=== PATIENT | female | born 1975 | race Caucasian/White ===

== ENCOUNTER 2024-03-31 17:39 | Inpatient (IN) | payer SELFPAY ==
[2024-03-31] VITALS (10 sets, daily range): BP systolic 93–145; BP diastolic 47–88; PULSE 91–115; RESP 21–39; TEMP 37.2–39.3; O2SAT 83–100
--- NOTE | ~2024-03-31 | CT_ITS ---
Clinical indication:Severe rib pain COMPARISON:Plain film evaluation of the chest dated 03/31/2024 TECHNIQUE: Multiple contiguous axial images of the chest were performed following the administration of intravenous contrast. DLP: 170 mGy-cm FINDINGS: LUNG:Consolidation is identified within the superior segment of the left lower lobe, within the right middle lobe, and within the superior segment of the right lower lobe. Dependent consolidation is detected within the base of the right lower lobe. MEDIASTINUM:No pathologically enlarged or morphologically suspicious lymph nodes within the mediastin um, robbie, or bilateral axilla. HEART:The heart is of normal size, without pericardial effusion. SOFT TISSUES OF THE CHEST: Unremarkable BONES OF THE CHEST: Prior fracture deformity is identified within the right lateral seventh rib. No a cute fractures are appreciated. VISUALIZED PORTION OF THE UPPER ABDOMEN: Small hiatal hernia. Fatty infiltration of the liver. IMPRESSION: Multifocal pneumonia, as described on plain radiograph of the chest dated 03/31/2024. Prior fracture deformity within the right seventh rib. No acute fractures are present. Reviewed, dictated and finalized at location A. STICS OPERATIONS DIRECTOR IMPRESSION: Multifocal pneumonia, as described on plain radiograph of the chest dated 025. Prior fracture deformity within the right seventh rib. No acute fractures are p resent.
--- NOTE | ~2024-03-31 | CT_ITS ---
Clinical indication:Worsening shortness of breath COMPARISON:Contrast-enhanced CT examination of the chest performed 48 hours earlier TECHNIQUE: Multiple contiguous axial images of the chest were performed without the administration of intravenous contrast. FINDINGS: LUNG:Increasing consolidation within the bilateral lung cullen, demonstrating progression since previ ous examination. Dense opacification of the entirety of the right lower lobe with air bronchograms. Increasing consolidation within the left lower lobe, an interval change from prior. Interval development of patchy irregular groundglass opacification of the bilateral upper lobes, when compared with previous examination. MEDIASTINUM:Unchanged HEART:The heart is of normal size, although now with a small pericardial effusion. SOFT TISSUES OF THE CHEST: Unremarkable BONES OF THE CHEST: Unchanged IMPRESSION: Progression of multifocal pneumonia, as detailed above. Reviewed, dictated and finalized at location A. UTER TESTER
--- NOTE | ~2024-03-31 | XR_ITS ---
CHEST RADIOGRAPH CLINICAL HISTORY: r/o PNA . COMPARISON: 03/31/2024. Reference is also made to a CT examination of the chest dated 04/04/2024 TECHNIQUE: Single portable view of the chest. FINDINGS Right upper extremity PICC line identified with its tip projecting over the superior vena cava. The remainder of the cardiomediastinal silhouette is otherwise unremarkable. Redemonstration of bilateral lower lobe infiltrates, right greater than left. The remainder of the lungs are clear. IMPRESSION: Redemonstration bilateral lower lobe infiltrates, right greater than left. Reviewed, dictated and finalized at location A. [place] GUIDE
--- NOTE | ~2024-03-31 | XR_ITS ---
CHEST RADIOGRAPH CLINICAL HISTORY: influenza, hypoxia . COMPARISON: 05/03/2018 TECHNIQUE: Single portable view of the chest. FINDINGS The cardiomediastinal silhouette is unremarkable. Patchy alveolar disease detected within the right upper and middle lobes with air bronchograms, likel y an early infiltrate. The remainder of the lungs are clear. IMPRESSION: Right upper and middle lobe pneumonia, as detailed above. Reviewed, dictated and finalized at location A. CHER OPERATOR
--- OUTSIDE RECORDS SUMMARY | 2024-03-31 17:42 | XMS_ITS | Clinical Summary ---
Author Organization [facility] Address [facility] [place] [address] Care Team Providers Care Rubber And Plastics Worker Name Role Phone None, Provider MD Primary Care Provider Unavaila ble Allergies Active Allergy Reactions Criticality Noted Date Comments Penicillins Hives 12/10/2017 Medications azithromycin (ZITHROMAX) 250 MG tablet Take 2 tablets by mouth on day one then 1 daily for four days. 6 tablet 12/10/2017 Active methylPREDNISol one, JULIOCESAR, 4 MG tablet 6 TABLETS ON DAY ONE, 5 TABLETS DAY TWO, 4 TABLETS DAY THREE, 3 TABLETS DAY FOUR, 2 TABLETS DAY FIVE, AND 1 TABLET DAY SIX 1 each 12/10/2017 Active Family History Medical History Relation Comments Diabetes Mother Relation Status Comments Mother Social History Tobacco Use Types Packs/Day Years Used Date Smoking Tobacco: Every Day Smokeless Tobacco: Never Alcohol Use Standard Drinks/Week Comments No 0 (1 standard drink = 0.6 oz pur e alcohol) Comments No Sex and Gender Information Value Date Recorded Sex Assigned at Not on file Legal Sex Female 7:49 PM CDT Gender Identity Not on file Sexual Orientation Not on file Last Filed Vital Signs Vital Sign Reading Time Taken Comments Blood Pressure 165/99 11/28/2023 8:55 PM CDT Pulse 101 11/28/2023 8:55 PM CDT Temperature 36.8 C (98.3 F) 11/28/2023 8:55 PM CDT Respiratory Rate 20 11/28/2023 8:55 PM CDT Oxygen Saturation 97% 11/28/2023 8:55 PM CDT Inhaled Oxygen Concentration - - Weight 71.7 kg (158 lb) 11/28/2023 6:41 PM CDT Height 160 cm (5' 3 ) 11/28/2023 6:41 PM CDT Body Mass Index 27.99 11/28/2023 6:41 PM CDT Plan of Treatment Health Maintenance Due Date Last Done Comments Cervical Cancer Screening Pa p Smear (Age 30 to 64) Every 3 Years 1973 Colorectal Cancer Screening Colonoscopy (10 Years) 1973 Annual Physical 02/19/1976 Pneumococcal Vaccine: Pediat rics (0 to 5 Years) and At-Risk Patients (6 to 64 Years) (1 of 2 - PCV) 1979 Hepatitis C 1991 DTaP, Tdap and Td Vaccines ( 1 - Tdap) 02/19/1992 Hepatitis B Vaccines (1 of 3 - 19+ 3-dose series) 02/19/1992 Cervical Cancer Screening Pa p with HPV Testing (Age 30 to 64) Every 5 Years 2003 Cervical Cancer Screening with HPV 2003 Mammogram Screening 2013 Zoster Vaccines (1 of 2) 2023 COVID-19 Vaccine (2 - 2023-2 5 season) 2023 09/19/2020 Influenza Adult (#1) 2023 Meningococcal B Vaccine Aged Out No l onger eligible based on patient's age to complete this topic Meningococcal Vaccine Aged Out No kira ivis eligible based on patient's age to complete this topic RSV Immunizations Under 20 Months Aged Out No longer eligible based on patient's age to complete this topic Care Teams Rubber And Plastics Worker Relationship Specialty Start Date End Date None, Provider, PCP - General 12/10/17
--- NOTE | 2024-03-31 17:55 | ECG_ITS ---
Test Date: 2024-03-31 17:58:38 Measurements Intervals [place] Rate: 100 P: 65 [place]: 172 QRS: 52 QRSD: 84 T: 64 QT: 314 QTc: 406 Interpretive Statements SINUS TACHYCARDIA POSSIBLE LEFT ATRIAL ENLARGEMENT CONSIDER ANTERIOR INFARCT, AGE INDETERMINATE ABNORMAL ECG No previous ECG available for comparison Electronically Signed On 03-31-2024 18:04:33 DREDGE PIPE INSTALLER by Anibal Aguirre D.O.
[2024-03-31 18:14] LABS: Basophils Percent Auto 0.3 % (0.2-1.2); Eosinophils Percent Auto 0.3 % (0-4.4); Hematocrit 42.5 % (37.0-47.0); Hemoglobin 14.9 g/dL (12.0-15.0); Immature Granulocyte Absolute 0.03 K/mm3 (0.00-0.031); Immature Granulocyte Percent A 0.3 % (0-0.5); Lymphocytes Absolute Auto 0.95 K/mm3 (0.9-3.2); Lymphocytes Percent Auto 8.1 % (18.3-44.2); Mean Corpuscular HGB Conc 35.1 g/dl (32-36); Mean Corpuscular Hemoglobin 31.4 pg (26-34); Mean Corpuscular Volume 89.5 fl (80-100); Mean Platelet Volume 10.3 fl (7.4-10.4); Monocytes Absolute Auto 0.8 K/mm3 (0.1-0.6); Monocytes Percent Auto 6.7 % (2.6-8.5); Neutrophils Absolute Auto 9.9 K/mm3 (1.3-6.7); Neutrophils Percent Auto 84.3 % (45.5-73.1); Platelet Count Result 188 k/mm3 (150-375); Red Blood Count 4.75 M/mm3 (4.2-5.4); White Blood Count 11.8 K/mm3 (4.5-10.0)
[2024-03-31 18:23] LABS: Alanine Aminotransferase 42 U/L (6-35); Albumin Level 3.9 g/dL (3.5-5.1); Alkaline Phosphatase 54 U/L (38-126); Anion Gap 11 mmol/L (4-12); Aspartate Amino Transferase 30 U/L (14-36); Bilirubin,Total 1.5 mg/dL (0.2-1.3); Blood Urea Nitrogen 16 mg/dL (7-17); Calcium 8.3 mg/dL (8.4-10.2); Carbon Dioxide 28 mmol/L (22-30); Chloride 94 mmol/L (98-107); Estimated Glomerular Filt Rate > 60; Glucose 220 mg/dL (65-110); Potassium 3.3 mmol/L (3.4-5.0); Sodium 133 mmol/L (137-145)
[2024-03-31 18:24] LABS: Lactic Acid Reflex 1.3 mmol/L (0.7-2.0); Partial Thromboplastin Time 27.4 Seconds (22.3-36.8); Prothrombin Time 13.9 Seconds (11.1-14.7)
[2024-03-31 18:51] LABS: Influenza A QL RT-PCR Positive (Negative); Influenza B QL RT-PCR Negative (Negative); RSV RNA, RT-PCR Negative (Negative); SARS-CoV-2 RNA PCR Negative (Negative)
--- OUTSIDE RECORDS SUMMARY | 2024-03-31 19:35 | XMS_ITS | Clinical Summary ---
Author Organization [facility] Address [facility] [place] [address] Care Team Providers Care Contact Lens Flashing Puncher Name Role Phone None, Provider MD Primary [...] age to complete this topic Care Teams Contact Lens Flashing Puncher Relationship Specialty Start Date End Date None, Provider, PCP - General 12/10/17
[2024-03-31] MEDS: ACETAMINOPHEN 500 MG TABLET 1000 MG PO (19:39)
[2024-03-31] MEDS: SODIUM CHLORIDE 0.9% IV 1,000 ML 999 ML IV CONT ×2 (19:40)
[2024-03-31] MEDS: KETOROLAC 15 MG/ML VIAL (*BKC) IV PUSH (19:40)
[2024-03-31 20:32] LABS: Add Urine Microscopic? NO; Appearance Urine Clear (Clear); Bilirubin Urine Negative (Negative); Blood Urine Negative (Negative); Color Urine Yellow (Yellow); Glucose Urine UA 2+ mg/dL (Negative); Ketones Urine 1+ mg/dL (Negative); Leukocyte Esterase Ur Negative LEU/UL (Negative); Nitrate Urine Negative (Negative); Protein Urine Negative (Negative); Specific Grav Ur 1.025 (1.001-1.035); pH Urine 5.5 (5.0-9.0)
[2024-03-31] MEDS: SODIUM CHLORIDE 0.9% IV 100 ML 999 ML IV CONT (20:52)
--- NOTE | 2024-03-31 21:00 | ED.GENADULT ---
HPI - General Adult General Chief complaint: Upper Respiratory Infection Stated complaint: AMS Time Seen by Provider: 03/31/24 19:17 History of Present Illness HPI narrative: This is a 49-year-old female presenting for it 6 days of flu-like symptoms. Symptoms include feeling ill, body aches, headaches. Three days ago she developed shortness of breath and diarrhea. She denies nausea vomiting chest pain abdominal pain or urinary symptoms. Related Data Allergies Allergy/AdvReac Type Severity Reaction Status Date / Time Penicillins Allergy Unknown Anaphylactic Verified 05/03/18 14:41 Shock [facility] Past Medical History Medical History (Updated 03/31/24 @ 21:37 by Bakari Mart MD) Diabetes Exam Narrative: APPEARANCE: Ill-appearing Head: atraumatic. EYES: EOMI, NOSE: Atraumatic NECK: Trachea midline RESPIRATORY: Tachypneic, hypoxic on room air Scattered wheezing CARDIOVASCULAR tachycardic, no peripheral edema ABDOMINAL: Non-distended nontender MUSCULOSKELETAl: No obvious deformities NEURO: Alert. Moving 4/4 extremities SKIN:: Warm, dry. Normal color PSYCHIATRIC: Normal affect Course Vital Signs Vital signs: Vital Signs Pulse Oximetry 83 L 03/31/24 17:45 Oxygen Delivery Room Air 03/31/24 17:45 Temperature 98.9 F 03/31/24 20:54 Pulse Rate 101 H 03/31/24 20:43 Respiratory Rate 21 H 03/31/24 20:43 Blood Pressure 116/88 03/31/24 20:43 Pulse Oximetry 98 03/31/24 20:43 Oxygen Delivery Nasal Cannula 03/31/24 19:27 Oxygen Flow Rate 3 03/31/24 19:27 Medical Decision Making [facility] Narrative Medical decision making narrative: -Course: 49-year-old female presenting with flu-like symptoms. On arrival patient was febrile tachycardic tachypneic and hypoxic/wheezing on room air. Patient placed on 4 L nasal cannula to improve her saturations into the mid 90s and then given a breathing treatment for wheezing.. Given fluids Toradol Tylenol with improvement and heart rate and temperature. Patient's workup significant for influenza A. Symptoms started 6 days ago so no role for Tamiflu. Potassium is 3.3 which has been repleted orally. Chest x-ray showed viral pneumonia. Patient will be admitted hospital for hypoxic respiratory failure secondary to influenza infection. -DDX includes but is not limited to: Bacterial pneumonia, viral pneumonia, influenza COVID sepsis dehydration Vital Signs Vital Signs: Vital Signs Pulse Oximetry 83 L 03/31/24 17:45 Oxygen Delivery Room Air 03/31/24 17:45 Temperature 98.9 F 03/31/24 20:54 Pulse Rate 101 H 03/31/24 20:43 Respiratory Rate 21 H 03/31/24 20:43 Blood Pressure 116/88 03/31/24 20:43 Pulse Oximetry 98 03/31/24 20:43 Oxygen Delivery Nasal Cannula 03/31/24 19:27 Oxygen Flow Rate 3 03/31/24 19:27 Lab Data 03/31/24 18:06 03/31/24 18:06 Labs: Lab Results 03/31/24 03/31/24 03/31/24 Range/Units 18:06 18:08 20:25 WBC 11.8 H (4.5-10.0) K/mm3 RBC 4.75 (4.2-5.4) M/mm3 Hgb 14.9 (12.0-15.0) g/dL Hct 42.5 (37.0-47.0) % MCV 89.5 (80-100) fl MCH 31.4 (26-34) pg MCHC 35.1 (32-36) g/dl RDW 12.0 (11.5-14.5) % Plt Count 188 (150-375) k/mm3 MPV 10.3 (7.4-10.4) fl Immature Gran % (Auto) 0.3 (0-0.5) % Neut % (Auto) 84.3 H (45.5-73.1) % Lymph % (Auto) 8.1 L (18.3-44.2) % [place] % (Auto) 6.7 (2.6-8.5) % Eos % (Auto) 0.3 (0-4.4) % Baso % (Auto) 0.3 (0.2-1.2) % Lymph # (Auto) 0.95 (0.9-3.2) K/mm3 [place] # (Auto) 0.8 H (0.1-0.6) K/mm3 Eos # (Auto) 0.0 (0-0.3) K/mm3 Baso # (Auto) 0.0 (0.0-0.1) K/mm3 Abs Immat Gran (auto) 0.03 (0.00-0.031) K/mm3 Absolute Neuts (auto) 9.9 H (1.3-6.7) K/mm3 Absolute Nucleated RBC 0.000 (0.0-0.012) K/mm3 Nucleated RBC % 0.0 (0.0-0.2) % PT 13.9 (11.1-14.7) Seconds INR 1.0 APTT 27.4 (22.3-36.8) Seconds Sodium 133 L (137-145) mmol/L Potassium 3.3 L (3.4-5.0) mmol/L Chloride 94 L (98-107) mmol/L Carbon Dioxide 28 (22-30) mmol/L Anion Gap 11 (4-12) mmol/L BUN 16 (7-17) mg/dL Creatinine 0.35 L (0.7-1.0) mg/dL Estim Creat Clear Calc Not Reportable Estimated GFR > 60 (59 - ) Glucose 220 H (65-110) mg/dL Lactic Acid 1.3 (0.7-2.0) mmol/L Calcium 8.3 L (8.4-10.2) mg/dL Total Bilirubin 1.5 H (0.2-1.3) mg/dL AST 30 (14-36) U/L ALT 42 H (6-35) U/L Alkaline Phosphatase 54 (38-126) U/L Total Protein 7.0 (6.3-8.2) g/dL Albumin 3.9 (3.5-5.1) g/dL Urine Color Yellow (Yellow) Urine Appearance Clear (Clear) Urine pH 5.5 (5.0-9.0) Ur Specific [place] 1.025 (1.001-1.035) Urine Protein Negative (Negative) mg/dL Urine Glucose (UA) 2+ H (Negative) mg/dL Urine Ketones 1+ H (Negative) mg/dL Ur Blood (Man) Negative (Negative) Urine Nitrate Negative (Negative) Urine Bilirubin Negative (Negative) Urine Urobilinogen 1.0 (<2.0) mg/dL Leukocyte Esterase Rfl Negative (Negative) SACHA/UL Influenza A (RT-PCR) Positive A (Negative) Influenza B (RT-PCR) Negative (Negative) RSV (RT-PCR) Negative (Negative) SARS-CoV-2 RNA (RT-PCR) Negative (Negative) Discharge Plan Discharge Clinical Impression: Influenza, Pneumonia, Respiratory failure Patient Disposition: Still a Patient Condition: Stable Patient Language: [place] Follow-up/Referrals: PHYSICIAN,CUSTOMER RELATIONSHIP SPECIALIST [Primary Care Provider] -
--- NOTE | 2024-03-31 21:22 | PC.NURSE ---
Person to contact or notify for updates: [phone]
[2024-03-31] MEDS: POTASSIUM CHLORIDE 20 MEQ PACKET (FOR LIQUID) 40 MEQ PO (21:37)
[2024-03-31] MEDS: IPRATROPIUM 0.5 MG/ALBUTEROL SULFATE 2.5 MG AMPUL.NEB 3 ML 12 ML INHALATION (22:20)
--- NOTE | 2024-03-31 22:23 | P.HP_ITS ---
H&P: HPI History of Present Illness Date/Time: 03/31/24 22:23 Chief Complaint: Cough, congestion, body aches Narrative: 49-year-old female with a past medical history of chronic tobacco use who presented to the ER from home due to cough congestion and body aches for 6 days. The patient reports she has been having generalized body aches, fevers, chills and shortness of breath about 6 days ago. She tried taking some Tylenol daytime formula cold relief without relief in symptoms. Her daughter and granddaughter live with her have been ill with similar symptoms. The patient reports that she does intermittently wheeze whenever she is sick or changes in weather. She has been wheezing significantly more over the last couple of days. She reported that she developed acute tightness throughout her chest today and decided she needed to come to the ER. She denies a known history of COPD but has not seen a doctor in many years. On arrival to the ER the patient was hypoxic on room air at 83%. She was also febrile with a T-max of 102.7?. Her influenza PCR came back positive. Her potassium was mildly low at 3.3. She received Tamiflu, Toradol albuterol, Tylenol and 2 L of fluid bolus in the ER. She was noted to be wheezing as well and was started on Solu-Medrol. The patient reports that she stopped smoking 6 days ago due to her symptoms. Prior to that she was smoking 2 packs per day since she was a teenager. She reported having 2-3 loose stools a day for the last couple of days but her stools have been brown. She does have a history of stress urinary incontinence with coughing. She denies any dysuria or increased urinary frequency. She has had decreased appetite. Patient reports that she was diagnosed with diabetes during an ER visit for years ago. She has never taken any diabetic medications. She does report diabetic neuropathy. Review of Systems 2 Review of Systems: 12 systems were reviewed with pertinent positives and negatives per HPI. Except as documented in the HPI, all other systems were reviewed and are negative. [facility] Past Medical History Medical History (Updated 04/01/24 @ 06:30 by Veronica Longo DO) Primary stress urinary incontinence Type 2 diabetes mellitus Tobacco abuse disorder Surgical History Surgical History (Updated 04/01/24 @ 06:20 by Veronica Longo DO) No history of previous surgery Family History Family History (Updated 04/01/24 @ 06:23 by Veronica Longo DO) Mother Lung cancer Father Early onset Alzheimer dementia, Onset Age: 50 Sibling Sudden cardiac , Onset Age: 35 Social History Social History (Updated 04/01/24 @ 06:25 by Veronica Longo DO) Social History: The patient lives at home with her daughter and granddaughter. She works in an elementary school cafeteria. She smoked 2 packs of cigarettes per day since she was a teenager. She reports that her last cigarette was on March 27 2024. She rarely drinks alcohol only in small amounts. Code status: Full code Surrogate decision maker: Marian (daughter) Smoking packs per day: 2 Smoking cigarettes per day: 40.0 Smoking status: Heavy tobacco smoker Alcohol intake: never Substance use: never Substance use type: does not use Do You Feel Safe in your Home?: Yes Lack of Transportation: No Lack of Food: Never True Current Housing: I Do Not Have Housing Concerned About Future Housing: YES Difficulty Paying Gas/Electric Bills: No Difficulty Paying for Meds: No Currently Unemployed: YES Education: Decline to Answer Difficulty w/ Childcare or Family Care: No Spiritual care concerns: No Meds Home Medications and Allergies Home Medications ?Medication ?Instructions ?Recorded ?Confirmed ?Type No Home Medications 04/01/24 04/01/24 History Allergies Allergy/AdvReac Type Severity Reaction Status Date / Time Penicillins Allergy Unknown Anaphylactic Verified 05/03/18 14:41 Shock Vital Signs Vital Signs - 24 hr 03/31/24 17:45 03/31/24 17:47 03/31/24 18:00 Temperature 102.7 F H Pulse Rate 115 H Respiratory Rate 28 H Blood Pressure 145/75 H Pulse Oximetry 83 L 96 85 L Oxygen Delivery Room Air Nasal Cannula Room Air Oxygen Flow Rate 5 03/31/24 19:17 03/31/24 19:27 03/31/24 20:43 Temperature Pulse Rate 101 H 101 H Respiratory Rate 39 H 21 H Blood Pressure 126/59 L 116/88 Pulse Oximetry 95 95 98 Oxygen Delivery Nasal Cannula Oxygen Flow Rate 3 03/31/24 20:54 Temperature 98.9 F Pulse Rate Respiratory Rate Blood Pressure Pulse Oximetry Oxygen Delivery Oxygen Flow Rate Exam 2 Narrative: Weight 68.3 kg BMI 26.7 Const: Other: Acutely ill-appearing, appears older than stated age, well-developed well- nourished HENMT: Other: Head is normocephalic atraumatic, mucous membranes are tacky, no oral pharyngeal erythema Eyes: Other: Pupils are equal and reactive, no scleral icterus, no conjunctival pallor Neck: Other: No JVD, trachea midline Resp: Other: End-expiratory wheezing bilateral lung cullen, coarse crackles right lung, marked tachypnea Cardio: Other: Sinus tachycardia, 2+ pulses bilateral radial and pedal, no murmur GI: Other: Soft, nontender, nondistended, positive bowel sounds Skin: Other: Hot to touch, mottling of the lower extremities, 2nd cap refill Neuro: Other: Alert oriented, speech is clear, no facial asymmetry, moves all extremities equally Extrem: Other: No clubbing, no cyanosis Psych: Other: Anxious, restless, judgment insight intact H&P: Results Labs Labs: Laboratory Tests 03/31/24 18:06 03/31/24 18:06 03/31/24 03/31/24 03/31/24 18:06 18:08 20:25 WBC 11.8 H RBC 4.75 Hgb 14.9 Hct 42.5 MCV 89.5 MCH 31.4 MCHC 35.1 RDW 12.0 Plt Count 188 MPV 10.3 Immature Gran % (Auto) 0.3 Neut % (Auto) 84.3 H Lymph % (Auto) 8.1 L [place] % (Auto) 6.7 Eos % (Auto) 0.3 Baso % (Auto) 0.3 Lymph # (Auto) 0.95 [place] # (Auto) 0.8 H Eos # (Auto) 0.0 Baso # (Auto) 0.0 Abs Immat Gran (auto) 0.03 Absolute Neuts (auto) 9.9 H Absolute Nucleated RBC 0.000 Nucleated RBC % 0.0 PT 13.9 INR 1.0 APTT 27.4 Sodium 133 L Potassium 3.3 L Chloride 94 L Carbon Dioxide 28 Anion Gap 11 BUN 16 Creatinine 0.35 L Estim Creat Clear Calc Not Reportable Estimated GFR > 60 Glucose 220 H Lactic Acid 1.3 Calcium 8.3 L Total Bilirubin 1.5 H AST 30 ALT 42 H Alkaline Phosphatase 54 Total Protein 7.0 Albumin 3.9 Urine Color Yellow Urine Appearance Clear Urine pH 5.5 Ur Specific [place] 1.025 Urine Protein Negative Urine Glucose (UA) 2+ H Urine Ketones 1+ H Ur Blood (Man) Negative Urine Nitrate Negative Urine Bilirubin Negative Urine Urobilinogen 1.0 Leukocyte Esterase Rfl Negative Influenza A (RT-PCR) Positive A Influenza B (RT-PCR) Negative RSV (RT-PCR) Negative SARS-CoV-2 RNA (RT-PCR) Negative Impressions Chest X-Ray 03/31/24 20:18 IMPRESSION: Right upper and middle lobe pneumonia, as detailed above. EKG: Measurements Intervals [place] Rate: 100 P: 65 [place]: 172 QRS: 52 QRSD: 84 T: 64 QT: 314 QTc: 406 Interpretive Statements SINUS TACHYCARDIA POSSIBLE LEFT ATRIAL ENLARGEMENT CONSIDER ANTERIOR INFARCT, AGE INDETERMINATE ABNORMAL ECG No previous ECG available for comparison All imaging and EKGs personally reviewed and interpreted. And unless stated otherwise agree with radiologic and cardiology interpretation. Assessment and Plan Assessment and plan (1) Sepsis: Qualifiers: Acute respiratory failure type: with hypoxia Sepsis acute organ dysfunction status: with acute organ dysfunction Sepsis type: sepsis due to unspecified organism Severe sepsis acute organ dysfunction type: acute respiratory failure Severe sepsis shock status: without septic shock Qualified Code(s): A41.9 - Sepsis, unspecified organism; R65.20 - Severe sepsis without septic shock; J96.01 - Acute respiratory failure with hypoxia Code(s): A41.9 - Sepsis, unspecified organism Status: Acute (2) Respiratory failure: Qualifiers: Chronicity: acute Respiratory failure complication: hypoxia Qualified Code(s): J96.01 - Acute respiratory failure with hypoxia Code(s): J96.90 - Respiratory failure, unspecified, unspecified whether with hypoxia or hypercapnia Status: Acute (3) Influenza A with pneumonia: Code(s): J09.X1 - Influenza due to identified novel influenza A virus with pneumonia Status: Acute (4) Type 2 diabetes mellitus with hyperglycemia: Qualifiers: Diabetes mellitus terminal manager insulin use: without terminal manager use Q ualified Code(s): E11.65 - Type 2 diabetes mellitus with hyperglycemia Code(s): E11.65 - Type 2 diabetes mellitus with hyperglycemia Status: Acute (5) Current smoker: Code(s): F17.200 - Nicotine dependence, unspecified, uncomplicated Status: Acute (6) Hypokalemia: Code(s): E87.6 - Hypokalemia Status: Acute Plan Patient presented with acute hypoxic respiratory failure due to pneumonia from influenza A. The patient has been placed on supplemental O2 of 3 L nasal cannula. The patient does have active wheezing and does have a longstanding smoking history. She likely has some component of chronic lung disease due to her smoking history. Will place on nebulizer treatments q.6 hours and scheduled steroid therapy to treat for suspected COPD exacerbation. Will wean oxygen as tolerated. Patient would benefit from outpatient PFTs once resolution of acute illness to confirm if she has COPD or emphysema. Will repeat CBC in a.m.. Patient did have some mild hypokalemia BMP she received 40 mEq potassium chloride. Will repeat electrolyte panel in a.m.. She has a known history of diabetes but has not sought out medical care for treatment. Patient was noted to be hyperglycemic as well. The moderate dose sliding scale insulin Accu-Cheks a.c. hs has been ordered. Hypoglycemia protocol has also been ordered as needed. The patient meets severe sepsis criteria. The patient appears acutely ill. Given the more localizing nature of her pneumonia x-ray will add Rocephin and azithromycin for coverage of to me a choir pneumonia I ordered a MRSA PCR which returned as positive so vancomycin has been added to antibiotic regimen. The patient did receive 30 mL/kilos fluid bolus. However given that she has mottling and sluggish cap refill will continue patient on IV fluid hydration overnight and re-evaluate clinical status in a.m.. The patient reports that she has no intention of ever smoking again. She does not want to be this ill again. Smoking cessation education has been provided. Quality VTE Prophylaxis VTE prophylaxis: pharmacologic ordered (Lovenox 40 mg subQ daily) Hospitalist [facility] Advance Care Plan I have confirmed that the patient's Advanced Care Plan is present, code status is documented, or surrogate decision maker is listed in patient medical record.: Yes Medication Reconciliation I have utilized all available resources to obtain, update and review the patients current medications (includes all prescriptions, OTC, herbals, cannabis, and nutritional supplements).: Yes
[2024-03-31 22:52] LABS: Glucose Point of Care 277 mg/dl (65-105)
[2024-04-01] VITALS (24 sets, daily range): BP systolic 104–125; BP diastolic 45–74; PULSE 79–112; RESP 16–118; TEMP 36.2–39.2; O2SAT 92–95; BMI 26.6
[2024-04-01] MEDS: ACETAMINOPHEN 325 MG TABLET 650 MG PO (00:20)
[2024-04-01] MEDS: methylPREDNISolone SOD SUCC 125 MG VIAL 60 MG IV PUSH ×3 (00:21→12:19)
--- NOTE | 2024-04-01 00:44 | ADMGEN ---
This patient, Natalie Romero, was admitted to Medical Room 347-. Patient/family oriented to hospital policies and general routines including ID bracelet, bed and alarms, visiting hours, pain management, procedures, bathroom and other care routines, personal items, smoking policy, room service/diet, and visiting hours. Information on how to activate the Rapid Response Team has been discussed. Patient/Family are encouraged to report perceived risks to care and to ask questions if they do not understand what they are told or what they should do.
[2024-04-01] MEDS: IBUPROFEN 600 MG TABLET PO (01:45)
[2024-04-01] MEDS: AZITHROMYCIN 500 MG/NS 250 ML 500 MG/250 ML BAG 250 MG IVPB (01:47)
[2024-04-01] MEDS: SODIUM CHLORIDE 0.9% IV 1,000 ML 100 ML IV CONT (01:48)
[2024-04-01 05:23] LABS: MRSA (PCR) DETECTED (NOT DETECTE)
[2024-04-01 06:28] LABS: Hematocrit 40.3 % (37.0-47.0); Hemoglobin 13.6 g/dL (12.0-15.0); Mean Corpuscular HGB Conc 33.7 g/dl (32-36); Mean Corpuscular Volume 91.8 fl (80-100); Mean Platelet Volume 10.7 fl (7.4-10.4); Platelet Count Result 159 k/mm3 (150-375); Red Blood Count 4.39 M/mm3 (4.2-5.4); Red Cell Distribution Width 12.2 % (11.5-14.5); White Blood Count 18.7 K/mm3 (4.5-10.0)
[2024-04-01] MEDS: VANCOMYCIN 1,750 MG/NS 500 ML 1,750 MG/500 ML BAG 250 MG IVPB (06:28)
[2024-04-01 06:40] LABS: Anion Gap 8 mmol/L (4-12); Blood Urea Nitrogen 12 mg/dL (7-17); Calcium 7.4 mg/dL (8.4-10.2); Carbon Dioxide 25 mmol/L (22-30); Chloride 104 mmol/L (98-107); Estimated CRCL calculation 140 ml/min; Estimated Glomerular Filt Rate > 60; Glucose 252 mg/dL (65-110); Potassium 3.1 mmol/L (3.4-5.0); Sodium 137 mmol/L (137-145)
[2024-04-01 07:40] LABS: Band Neutrophils Percent 23 % (0-6); Lymphocytes Absolute Manual 0.37 K/mm3 (1.1-4.5); Monocytes Absolute Manual 0.56 K/mm3 (0.1-0.90); Monocytes Percent Manual 3 % (3-9); Neutrophils Absolute Manual 17.76 K/mm3 (1.7-7.2); Neutrophils Percent Manual 72 % (46-73); Platelet Estimate Adequate (Adequate); Schistocytes None Seen; Total Cells Counted 100
[2024-04-01] MEDS: MUPIROCIN 2% OINT 22 GM TUBE 1 APPLIC EACH NARE ×2 (08:09→20:12)
[2024-04-01 08:28] LABS: Glucose Point of Care 254 mg/dl (65-105)
[2024-04-01] MEDS: IPRATROPIUM 0.5 MG/ALBUTEROL SULFATE 2.5 MG AMPUL.NEB 3 ML INHALATION ×3 (09:32→21:11)
[2024-04-01] MEDS: INSULIN ASPART (*BKC) 100 UNITS/ML SUB-Q ×4 (09:52→20:47)
[2024-04-01 12:11] LABS: Glucose Point of Care 267 mg/dl (65-105)
[2024-04-01] MEDS: POTASSIUM CHLORIDE 20 MEQ ER TABLET 40 MEQ PO (12:19)
[2024-04-01] MEDS: MORPHINE SULFATE (*CRX) 2 MG/ML INJ IV PUSH (14:58)
--- NOTE | 2024-04-01 15:25 | P.PNIM_ITS ---
Progress Note: A&P Assessment and Plan (1) Sepsis: Qualifiers: Sepsis type: sepsis due to unspecified organism Sepsis acute organ dysfunction status: with acute organ dysfunction Severe sepsis acute organ dysfunction type: acute respiratory failure Acute respiratory failure type: with hypoxia Severe sepsis shock status: without septic shock Qualified Code(s): A41.9 - Sepsis, unspecified organism; R65.20 - Severe sepsis without septic shock; J96.01 - Acute respiratory failure with hypoxia Code(s): A41.9 - Sepsis, unspecified organism Status: Acute (2) Respiratory failure: Qualifiers: Chronicity: acute Respiratory failure complication: hypoxia Qualified Code(s): J96.01 - Acute respiratory failure with hypoxia Code(s): J96.90 - Respiratory failure, unspecified, unspecified whether with hypoxia or hypercapnia Status: Acute (3) Influenza A with pneumonia: Code(s): J09.X1 - Influenza due to identified novel influenza A virus with pneumonia Status: Acute (4) Type 2 diabetes mellitus with hyperglycemia: Qualifiers: Diabetes mellitus fdc insulin use: without fdc use Qualified Code(s): E11.65 - Type 2 diabetes mellitus with hyperglycemia Code(s): E11.65 - Type 2 diabetes mellitus with hyperglycemia Status: Acute (5) Current smoker: Code(s): F17.200 - Nicotine dependence, unspecified, uncomplicated Status: Acute (6) Hypokalemia: Code(s): E87.6 - Hypokalemia Status: Acute Plan Acute hypoxic respiratory failure From pneumonia, flu and bronchospasm. Continue antibiotics, bronchodilator and Tamiflu. Titrate oxygen. Sepsis From pneumonia Vital signs within normal limits. Continue antibiotics and follow-up cultures. Patient is having adequate oral intake, discontinue IVF. Pneumonia Chest x-ray showed a right upper middle lobe pneumonia. Follow-up cultures. MRSA positive Continue Rocephin azithromycin and vancomycin. Monitor Influenza a Flu A positive Continue Tamiflu. Bronchospasm likely COPD exacerbation patient is a smoker, undiagnosed. Wheezing has resolved Continued treatment and Symbicort Monitor for wheezing. Tobacco use Patient counseled about cessation. Type 2 diabetes Sliding scale insulin with Accu-Cheks. DVT prophylaxis subQ Lovenox Subjective Date/time seen: 04/01/24 15:25 Interval history: Comfortable at bedside MRSA positive and now on Vanc Review of Systems Review of Systems: 12 systems were reviewed with pertinent positives and negatives per HPI. Except as documented in the HPI, all other systems were reviewed and are negative. Exam Narrative: Weight 68.3 kg BMI 26.7 Const: Other: Acutely ill-appearing, appears older than stated age, well-developed well- nourished HENMT: Other: Head is normocephalic atraumatic, mucous membranes are tacky, no oral pharyngeal erythema Eyes: Other: Pupils are equal and reactive, no scleral icterus, no conjunctival pallor Neck: Other: No JVD, trachea midline Resp: Other: End-expiratory wheezing bilateral lung cullen, coarse crackles right lung, marked tachypnea Cardio: Other: Sinus tachycardia, 2+ pulses bilateral radial and pedal, no murmur GI: Other: Soft, nontender, nondistended, positive bowel sounds Skin: Other: Hot to touch, mottling of the lower extremities, 2nd cap refill Neuro: Other: Alert oriented, speech is clear, no facial asymmetry, moves all extremities equally Extrem: Other: No clubbing, no cyanosis Psych: Other: Anxious, restless, judgment insight intact Objective Data Vital Signs Vital Signs: Vital Signs - 24 hr 03/31/24 17:45 03/31/24 17:47 03/31/24 18:00 Temperature 102.7 F H Pulse Rate 115 H Respiratory Rate 28 H Blood Pressure 145/75 H Pulse Oximetry 83 L 96 85 L Oxygen Delivery Room Air Nasal Cannula Room Air Oxygen Flow Rate 5 03/31/24 19:17 03/31/24 19:27 03/31/24 20:43 Temperature Pulse Rate 101 H 101 H Respiratory Rate 39 H 21 H Blood Pressure 126/59 L 116/88 Pulse Oximetry 95 95 98 Oxygen Delivery Nasal Cannula Oxygen Flow Rate 3 03/31/24 20:54 03/31/24 22:27 03/31/24 22:40 Temperature 98.9 F Pulse Rate 92 91 Respiratory Rate 27 H 32 H Blood Pressure 93/47 L Pulse Oximetry 100 Oxygen Delivery Oxygen Flow Rate 03/31/24 23:30 04/01/24 00:02 04/01/24 00:20 Temperature 100.0 F H Pulse Rate 103 H 107 H Respiratory Rate 27 H 35 H Blood Pressure 104/45 L Pulse Oximetry 95 Oxygen Delivery Oxygen Flow Rate 04/01/24 00:25 04/01/24 00:30 04/01/24 01:20 Temperature 100 F H 102.5 F H Pulse Rate 100 Respiratory Rate 118 H Blood Pressure 111/72 Pulse Oximetry 95 94 Oxygen Delivery Nasal Cannula Oxygen Flow Rate 3 04/01/24 01:20 04/01/24 01:20 04/01/24 01:45 Temperature 102.5 F H 102.5 F H Pulse Rate 112 H Respiratory Rate Blood Pressure Pulse Oximetry Oxygen Delivery Oxygen Flow Rate 04/01/24 02:45 04/01/24 04:00 04/01/24 05:41 Temperature 98.8 F 97.7 F Pulse Rate 91 84 Respiratory Rate 18 Blood Pressure 109/67 Pulse Oximetry 94 Oxygen Delivery Oxygen Flow Rate 04/01/24 08:05 04/01/24 09:06 04/01/24 09:33 Temperature Pulse Rate 79 90 81 Respiratory Rate 20 20 Blood Pressure Pulse Oximetry Oxygen Delivery Oxygen Flow Rate 04/01/24 09:34 04/01/24 12:05 04/01/24 14:00 Temperature 97.2 F L Pulse Rate 81 83 88 Respiratory Rate 20 16 Blood Pressure 119/68 Pulse Oximetry 92 93 Oxygen Delivery Nasal Cannula Oxygen Flow Rate 3 04/01/24 14:37 04/01/24 14:46 Temperature Pulse Rate 88 92 Respiratory Rate 20 20 Blood Pressure Pulse Oximetry Oxygen Delivery Oxygen Flow Rate Intake/Output Intake/Output: Intake & Output 03/29/24 03/30/24 03/31/24 04/01/24 23:59 23:59 23:59 23:59 Intake Total 2100 1860 Output Total 860 Balance 2100 1000 Meds/Results Medications: Active Medications Generic Name Dose Route Start Last Admin Trade Name Freq PRN Reason Stop Dose Admin Acetaminophen 650 mg 03/31/24 22:35 04/01/24 00:20 Acetaminophen 325 Mg Tablet PO 650 mg Q4H PRN Administration Mild Pain (1-3) or Fever Albuterol/Ipratropium 3 ml 04/01/24 02:00 04/01/24 14:34 Ipratropium 0.5 Mg/Albuterol Sulfate 2.5 Mg Ampul.Neb 3 Ml INHALATION 3 ml Q6HRT [facility] Administration Calcium Carbonate 200 mg 03/31/24 22:35 Calcium Carbonate (Tums) 500 Mg (200 Mg Elemental) PO Q6H PRN Indigestion Dextrose 12.5 gm 03/31/24 22:31 Dextrose 50% 25 Gm/50 Ml Syringe IV PUSH PRN PRN Hypoglycemia Protocol Enoxaparin Sodium 40 mg 04/02/24 09:00 Enoxaparin 40 Mg/0.4 Ml Syringe SUB-Q DAILY [facility] Glucagon 1 mg 03/31/24 22:31 Glucagon For Inj 1 Mg Vial IM PRN PRN Hypoglycemia Protocol Glucose 15 gm 03/31/24 22:31 Glucose Oral Gel 15 Gm Of Glucse In 37.5 Gm Tube PO PRN PRN Hypoglycemia Protocol Dextrose 1,000 mls @ 100 mls/hr 03/31/24 22:31 Dextrose 5% 1,000 Ml IVPB PRN PRN Hypoglycemia Protocol Ceftriaxone Sodium 1 gm in 50 mls @ 100 mls/hr 04/01/24 02:00 04/01/24 02:14 Rocephin 1 Gm/Ns 50 Ml IVPB Infused Q24H [facility] Infusion Azithromycin 500 mg in 250 mls @ 250 mls/hr 04/01/24 02:00 04/01/24 02:47 Zithromax IVPB Infused Q24H [facility] Infusion Vancomycin HCl 1,250 mg in 250 mls @ 166.667 mls/hr 04/01/24 18:00 Vancomycin 1,250 Mg/Ns 250 Ml IVPB Q12H [facility] Ibuprofen 600 mg 04/01/24 01:25 04/01/24 01:45 Ibuprofen 600 Mg Tablet PO 600 mg Q6H PRN Administration pain 4-6 or fever Insulin Aspart 3 - 6 units 04/01/24 08:00 04/01/24 12:20 Insulin Aspart (*Bkc) 100 Units/Ml SUB-Q 4 units TIDWM [facility] Administration Protocol Insulin Aspart 1 - 3 units 04/01/24 21:00 Insulin Aspart (*Bkc) 100 Units/Ml SUB-Q HS [facility] Protocol Methylprednisolone Sodium Succinate 60 mg 04/01/24 00:00 04/01/24 12:19 Methylprednisolone Sod Succ 125 Mg Vial IV PUSH 60 mg Q6HR [facility] Administration Morphine Sulfate 2 mg 04/01/24 14:51 04/01/24 14:58 Morphine Sulfate (*Crx) 2 Mg/Ml Inj IV PUSH 2 mg Q4H PRN Administration Pain Rated 7-10 Mupirocin 1 applic 04/01/24 09:00 04/01/24 08:09 Mupirocin 2% Oint 22 Gm Tube EACH NARE 04/05/24 21:01 1 applic Q12HR [facility] Administration Ondansetron HCl 4 mg 03/31/24 22:38 Ondansetron Inj 4 Mg/2 Ml Vial IV PUSH Q4H PRN Nausea And Vomiting Radiology Results: ITS Impressions Chest X-Ray 03/31/24 20:18 IMPRESSION: Right upper and middle lobe pneumonia, as detailed above. Labs Labs: Laboratory Results - last 24 hr 03/31/24 03/31/24 03/31/24 18:06 18:08 20:25 WBC 11.8 H RBC 4.75 Hgb 14.9 Hct 42.5 MCV 89.5 MCH 31.4 MCHC 35.1 RDW 12.0 Plt Count 188 MPV 10.3 Immature Gran % (Auto) 0.3 Neut % (Auto) 84.3 H Lymph % (Auto) 8.1 L [place] % (Auto) 6.7 Eos % (Auto) 0.3 Baso % (Auto) 0.3 Lymph # (Auto) 0.95 [place] # (Auto) 0.8 H Eos # (Auto) 0.0 Baso # (Auto) 0.0 Abs Immat Gran (auto) 0.03 Absolute Neuts (auto) 9.9 H Absolute Nucleated RBC 0.000 Total Counted Neutrophils % (Manual) Band Neutrophils % Lymphocytes % (Manual) Monocytes % (Manual) Nucleated RBC % 0.0 Abs Neuts (Manual) Abs Lymphs (Manual) Abs Monocytes (Manual) Platelet Estimate Schistocytes PT 13.9 INR 1.0 APTT 27.4 Sodium 133 L Potassium 3.3 L Chloride 94 L Carbon Dioxide 28 Anion Gap 11 BUN 16 Creatinine 0.35 L Estim Creat Clear Calc Not Reportable Estimated GFR > 60 Glucose 220 H POC Capillary Glucose Lactic Acid 1.3 Calcium 8.3 L Total Bilirubin 1.5 H AST 30 ALT 42 H Alkaline Phosphatase 54 Total Protein 7.0 Albumin 3.9 Urine Color Yellow Urine Appearance Clear Urine pH 5.5 Ur Specific [place] 1.025 Urine Protein Negative Urine Glucose (UA) 2+ H Urine Ketones 1+ H Ur Blood (Man) Negative Urine Nitrate Negative Urine Bilirubin Negative Urine Urobilinogen 1.0 Leukocyte Esterase Rfl Negative Nasal MRSA (PCR) Influenza A (RT-PCR) Positive A Influenza B (RT-PCR) Negative RSV (RT-PCR) Negative SARS-CoV-2 RNA (RT-PCR) Negative 03/31/24 04/01/24 04/01/24 22:49 01:51 06:08 WBC 18.7 H RBC 4.39 Hgb 13.6 Hct 40.3 MCV 91.8 MCH 31.0 MCHC 33.7 RDW 12.2 Plt Count 159 MPV 10.7 H Immature Gran % (Auto) Not Reportable Neut % (Auto) Not Reportable Lymph % (Auto) Not Reportable [place] % (Auto) Not Reportable Eos % (Auto) Not Reportable Baso % (Auto) Not Reportable Lymph # (Auto) Not Reportable [place] # (Auto) Not Reportable Eos # (Auto) Not Reportable Baso # (Auto) Not Reportable Abs Immat Gran (auto) Not Reportable Absolute Neuts (auto) Not Reportable Absolute Nucleated RBC Not Reportable Total Counted 100 Neutrophils % (Manual) 72 Band Neutrophils % 23 H Lymphocytes % (Manual) 2.0 L Monocytes % (Manual) 3 Nucleated RBC % Not Reportable Abs Neuts (Manual) 17.76 H Abs Lymphs (Manual) 0.37 L Abs Monocytes (Manual) 0.56 Platelet Estimate Adequate Schistocytes None seen PT INR APTT Sodium 137 Potassium 3.1 L Chloride 104 Carbon Dioxide 25 Anion Gap 8 BUN 12 Creatinine 0.35 L Estim Creat Clear Calc 140 Estimated GFR > 60 Glucose 252 H POC Capillary Glucose 277 H Lactic Acid Calcium 7.4 L Total Bilirubin AST ALT Alkaline Phosphatase Total Protein Albumin Urine Color Urine Appearance Urine pH Ur Specific [place] Urine Protein Urine Glucose (UA) Urine Ketones Ur Blood (Man) Urine Nitrate Urine Bilirubin Urine Urobilinogen Leukocyte Esterase Rfl Nasal MRSA (PCR) Detected A* Influenza A (RT-PCR) Influenza B (RT-PCR) RSV (RT-PCR) SARS-CoV-2 RNA (RT-PCR) 04/01/24 04/01/24 08:15 11:43 WBC RBC Hgb Hct MCV MCH MCHC RDW Plt Count MPV Immature Gran % (Auto) Neut % (Auto) Lymph % (Auto) [place] % (Auto) Eos % (Auto) Baso % (Auto) Lymph # (Auto) [place] # (Auto) Eos # (Auto) Baso # (Auto) Abs Immat Gran (auto) Absolute Neuts (auto) Absolute Nucleated RBC Total Counted Neutrophils % (Manual) Band Neutrophils % Lymphocytes % (Manual) Monocytes % (Manual) Nucleated RBC % Abs Neuts (Manual) Abs Lymphs (Manual) Abs Monocytes (Manual) Platelet Estimate Schistocytes PT INR APTT Sodium Potassium Chloride Carbon Dioxide Anion Gap BUN Creatinine Estim Creat Clear Calc Estimated GFR Glucose POC Capillary Glucose 254 H 267 H Lactic Acid Calcium Total Bilirubin AST ALT Alkaline Phosphatase Total Protein Albumin Urine Color Urine Appearance Urine pH Ur Specific [place] Urine Protein Urine Glucose (UA) Urine Ketones Ur Blood (Man) Urine Nitrate Urine Bilirubin Urine Urobilinogen Leukocyte Esterase Rfl Nasal MRSA (PCR) Influenza A (RT-PCR) Influenza B (RT-PCR) RSV (RT-PCR) SARS-CoV-2 RNA (RT-PCR) Quality VTE Prophylaxis VTE prophylaxis: pharmacologic ordered (Lovenox 40 mg subQ daily)
[2024-04-01 16:44] LABS: Hemoglobin A1C 10.9 % (<5.7)
[2024-04-01 17:06] LABS: Glucose Point of Care 284 mg/dl (65-105)
[2024-04-01] MEDS: VANCOMYCIN 1,250 MG/NS 250 ML 1,250 MG/250 ML BAG 166.67 MG IVPB (17:16)
[2024-04-01] MEDS: OSELTAMIVIR PHOSPHATE 75 MG CAPSULE PO (20:11)
[2024-04-01] MEDS: INSULIN GLARGINE (*BKC) 100 UNITS/ML 10 UNITS SUB-Q (20:47)
[2024-04-01] MEDS: FLUTICASONE/SALMETEROL 45-21 MCG INHALER 1 PUFF 2 PUFF INHALATION (21:11)
[2024-04-01 21:44] LABS: Glucose Point of Care 271 mg/dl (65-105)
[2024-04-02] VITALS (12 sets, daily range): BP systolic 117–125; BP diastolic 63–69; PULSE 78–98; RESP 16–20; TEMP 36.8–37.6; O2SAT 91–95
[2024-04-02] MEDS: ACETAMINOPHEN 325 MG TABLET 650 MG PO (01:25)
[2024-04-02] MEDS: IBUPROFEN 600 MG TABLET PO (01:26)
[2024-04-02] MEDS: AZITHROMYCIN 500 MG/NS 250 ML 500 MG/250 ML BAG 250 MG IVPB (02:00)
[2024-04-02] MEDS: VANCOMYCIN 1,250 MG/NS 250 ML 1,250 MG/250 ML BAG 166.67 MG IVPB (05:58)
[2024-04-02 06:22] LABS: Basophils Absolute Auto 0.1 K/mm3 (0.0-0.1); Basophils Percent Auto 0.2 % (0.2-1.2); Eosinophils Absolute Auto 0.2 K/mm3 (0-0.3); Eosinophils Percent Auto 0.8 % (0-4.4); Hematocrit 37.5 % (37.0-47.0); Hemoglobin 12.6 g/dL (12.0-15.0); Immature Granulocyte Absolute 0.33 K/mm3 (0.00-0.031); Immature Granulocyte Percent A 1.6 % (0-0.5); Lymphocytes Percent Auto 13.8 % (18.3-44.2); Mean Corpuscular HGB Conc 33.6 g/dl (32-36); Mean Corpuscular Volume 92.1 fl (80-100); Monocytes Absolute Auto 0.9 K/mm3 (0.1-0.6); Monocytes Percent Auto 4.3 % (2.6-8.5); Neutrophils Absolute Auto 16.1 K/mm3 (1.3-6.7); Neutrophils Percent Auto 79.3 % (45.5-73.1); Platelet Count Result 164 k/mm3 (150-375); Red Blood Count 4.07 M/mm3 (4.2-5.4); Red Cell Distribution Width 12.5 % (11.5-14.5); White Blood Count 20.3 K/mm3 (4.5-10.0)
[2024-04-02 06:49] LABS: Alanine Aminotransferase 43 U/L (6-35); Albumin Level 2.9 g/dL (3.5-5.1); Alkaline Phosphatase 53 U/L (38-126); Anion Gap 6 mmol/L (4-12); Aspartate Amino Transferase 50 U/L (14-36); Blood Urea Nitrogen 18 mg/dL (7-17); Calcium 8.1 mg/dL (8.4-10.2); Carbon Dioxide 25 mmol/L (22-30); Chloride 105 mmol/L (98-107); Estimated CRCL calculation 128 ml/min; Estimated Glomerular Filt Rate > 60; Glucose 196 mg/dL (65-110); Magnesium 2.1 mg/dL (1.6-2.3); Potassium 3.5 mmol/L (3.4-5.0); Sodium 136 mmol/L (137-145)
[2024-04-02 06:51] LABS: Anisocytosis 1+; Platelet Estimate Adequate (Adequate); Schistocytes None Seen
[2024-04-02] MEDS: OSELTAMIVIR PHOSPHATE 75 MG CAPSULE PO ×2 (08:12→20:33)
[2024-04-02] MEDS: ENOXAPARIN 40 MG/0.4 ML SYRINGE SUB-Q (08:12)
[2024-04-02] MEDS: MUPIROCIN 2% OINT 22 GM TUBE 1 APPLIC EACH NARE ×2 (08:14→20:34)
[2024-04-02] MEDS: FLUTICASONE/SALMETEROL 45-21 MCG INHALER 1 PUFF 2 PUFF INHALATION ×2 (08:32→20:03)
[2024-04-02] MEDS: IPRATROPIUM 0.5 MG/ALBUTEROL SULFATE 2.5 MG AMPUL.NEB 3 ML INHALATION ×3 (08:32→19:54)
[2024-04-02 08:42] LABS: Glucose Point of Care 204 mg/dl (65-105)
[2024-04-02] MEDS: INSULIN ASPART (*BKC) 100 UNITS/ML SUB-Q ×3 (09:15→20:36)
[2024-04-02] MEDS: levoFLOXacin 750 MG/D5W 150 ML 750 MG/150 ML BAG 100 MG IVPB (10:09)
[2024-04-02] MEDS: MORPHINE SULFATE (*CRX) 2 MG/ML INJ IV PUSH ×2 (11:48→14:33)
[2024-04-02 11:53] LABS: Glucose Point of Care 207 mg/dl (65-105)
--- NOTE | 2024-04-02 13:41 | P.PNIM_ITS ---
Progress Note: A&P Assessment and Plan (1) Sepsis: Qualifiers: Sepsis type: sepsis due to unspecified organism Sepsis acute organ dysfunction status: with acute organ dysfunction Severe sepsis acute organ dysfunction type: acute respiratory failure Acute respiratory failure type: with hypoxia Severe sepsis shock status: without septic shock Qualified Code(s): A41.9 - Sepsis, unspecified organism; R65.20 - Severe sepsis without septic shock; J96.01 - Acute respiratory failure with hypoxia Code(s): A41.9 - Sepsis, unspecified organism Status: Acute (2) Respiratory failure: Qualifiers: Chronicity: acute Respiratory failure complication: hypoxia Qualified Code(s): J96.01 - Acute respiratory failure with hypoxia Code(s): J96.90 - Respiratory failure, unspecified, unspecified whether with hypoxia or hypercapnia Status: Acute (3) Influenza A with pneumonia: Code(s): J09.X1 - Influenza due to identified novel influenza A virus with pneumonia Status: Acute (4) Type 2 diabetes mellitus with hyperglycemia: Qualifiers: Diabetes mellitus halfway insulin use: without halfway use Qualified Code(s): E11.65 - Type 2 diabetes mellitus with hyperglycemia Code(s): E11.65 - Type 2 diabetes mellitus with hyperglycemia Status: Acute (5) Current smoker: Code(s): F17.200 - Nicotine dependence, unspecified, uncomplicated Status: Acute (6) Hypokalemia: Code(s): E87.6 - Hypokalemia Status: Acute Plan Acute hypoxic respiratory failure, resolved From pneumonia, flu and bronchospasm. Continue antibiotics, bronchodilator and Tamiflu. nwo on room air Sepsis , reoslved From pneumonia Vital signs within normal limits. Continue antibiotics and follow-up cultures. Patient is having adequate oral intake, discontinue IVF. Pneumonia Chest x-ray showed a right upper middle lobe pneumonia. Follow-up cultures. MRSA positive Continue Levaquin and Doxy Monitor Influenza a Flu A positive Continue Tamiflu. Bronchospasm likely COPD exacerbation patient is a smoker, undiagnosed. Wheezing has resolved Continued treatment and Symbicort Monitor for wheezing. Tobacco use Patient counseled about cessation. Type 2 diabetes Sliding scale insulin with Accu-Cheks. DVT prophylaxis subQ Lovenox Subjective Date/time seen: 04/02/24 13:41 Interval history: Comfortable at bedside changed vanc to Doxy and monitor Review of Systems Review of Systems: 12 systems were reviewed with pertinent positives and negatives per HPI. Except as documented in the HPI, all other systems were reviewed and are negative. Exam Narrative: Weight 68.3 kg BMI 26.7 Const: Other: Acutely ill-appearing, appears older than stated age, well-developed well- nourished HENMT: Other: Head is normocephalic atraumatic, mucous membranes are tacky, no oral pharyngeal erythema Eyes: Other: Pupils are equal and reactive, no scleral icterus, no conjunctival pallor Neck: Other: No JVD, trachea midline Resp: Other: End-expiratory wheezing bilateral lung cullen, coarse crackles right lung, marked tachypnea Cardio: Other: Sinus tachycardia, 2+ pulses bilateral radial and pedal, no murmur GI: Other: Soft, nontender, nondistended, positive bowel sounds Skin: Other: Hot to touch, mottling of the lower extremities, 2nd cap refill Neuro: Other: Alert oriented, speech is clear, no facial asymmetry, moves all extremities equally Extrem: Other: No clubbing, no cyanosis Psych: Other: Anxious, restless, judgment insight intact Objective Data Vital Signs Vital Signs: Vital Signs - 24 hr 04/01/24 14:00 04/01/24 14:37 04/01/24 14:46 Temperature 97.2 F L Pulse Rate 88 88 92 Respiratory Rate 16 20 20 Blood Pressure 119/68 Pulse Oximetry 93 Oxygen Delivery Oxygen Flow Rate 04/01/24 16:05 04/01/24 18:35 04/01/24 20:00 Temperature Pulse Rate 98 92 Respiratory Rate Blood Pressure Pulse Oximetry 93 Oxygen Delivery Oxygen Flow Rate 2 04/01/24 20:32 04/01/24 21:12 04/01/24 21:14 Temperature 98.4 F Pulse Rate 93 89 Respiratory Rate 18 20 Blood Pressure 125/74 Pulse Oximetry 94 92 Oxygen Delivery Nasal Cannula Oxygen Flow Rate 2 04/01/24 21:20 04/02/24 00:00 04/02/24 04:00 Temperature Pulse Rate 90 85 78 Respiratory Rate 20 Blood Pressure Pulse Oximetry Oxygen Delivery Oxygen Flow Rate 04/02/24 05:56 04/02/24 08:00 04/02/24 08:13 Temperature 98.2 F Pulse Rate 80 Respiratory Rate 16 Blood Pressure 117/67 Pulse Oximetry 95 94 94 Oxygen Delivery Nasal Cannula Room Air Oxygen Flow Rate 1 04/02/24 08:30 Temperature Pulse Rate 86 Respiratory Rate 20 Blood Pressure Pulse Oximetry Oxygen Delivery Oxygen Flow Rate Intake/Output Intake/Output: Intake & Output 03/30/24 03/31/24 04/01/24 04/02/24 23:59 23:59 23:59 23:59 Intake Total 2100 3947 840 Output Total 860 Balance 2100 3087 840 Meds/Results Medications: Active Medications Generic Name Dose Route Start Last Admin Trade Name Freq PRN Reason Stop Dose Admin Acetaminophen 650 mg 03/31/24 22:35 04/02/24 01:25 Acetaminophen 325 Mg Tablet PO 650 mg Q4H PRN Administration Mild Pain (1-3) or Fever Albuterol/Ipratropium 3 ml 04/01/24 02:00 04/02/24 08:32 Ipratropium 0.5 Mg/Albuterol Sulfate 2.5 Mg Ampul.Neb 3 Ml INHALATION 3 ml Q6HRT [facility] Administration Calcium Carbonate 200 mg 03/31/24 22:35 Calcium Carbonate (Tums) 500 Mg (200 Mg Elemental) PO Q6H PRN Indigestion Dextrose 12.5 gm 03/31/24 22:31 Dextrose 50% 25 Gm/50 Ml Syringe IV PUSH PRN PRN Hypoglycemia Protocol Enoxaparin Sodium 40 mg 04/02/24 09:00 04/02/24 08:12 Enoxaparin 40 Mg/0.4 Ml Syringe SUB-Q 40 mg DAILY [facility] Administration Glucagon 1 mg 03/31/24 22:31 Glucagon For Inj 1 Mg Vial IM PRN PRN Hypoglycemia Protocol Glucose 15 gm 03/31/24 22:31 Glucose Oral Gel 15 Gm Of Glucse In 37.5 Gm Tube PO PRN PRN Hypoglycemia Protocol Dextrose 1,000 mls @ 100 mls/hr 03/31/24 22:31 Dextrose 5% 1,000 Ml IVPB PRN PRN Hypoglycemia Protocol Levofloxacin/Dextrose 750 mg in 150 mls @ 100 mls/hr 04/02/24 08:00 04/02/24 10:09 Levaquin 750 Mg/D5w 150 Ml IVPB 100 mls/hr Q24H [facility] Administration Doxycycline Hyclate 100 mg in 100 mls @ 100 mls/hr 04/02/24 16:00 Vibramycin 100 Mg/Ns 100 Ml IVPB Q12HR [facility] Ibuprofen 600 mg 04/01/24 01:25 04/02/24 01:26 Ibuprofen 600 Mg Tablet PO 600 mg Q6H PRN Administration pain 4-6 or fever Insulin Aspart 3 - 6 units 04/01/24 08:00 04/02/24 12:36 Insulin Aspart (*Bkc) 100 Units/Ml SUB-Q 3 units TIDWM [facility] Administration Protocol Insulin Aspart 1 - 3 units 04/01/24 21:00 04/01/24 20:47 Insulin Aspart (*Bkc) 100 Units/Ml SUB-Q 2 units HS [facility] Administration Protocol Insulin Glargine 10 units 04/01/24 21:00 04/01/24 20:47 Insulin Glargine (*Bkc) 100 Units/Ml 0.15 units/kg (10 units) 10 units SUB-Q Administration [facility] Morphine Sulfate 2 mg 04/01/24 14:51 04/02/24 11:48 Morphine Sulfate (*Crx) 2 Mg/Ml Inj IV PUSH 2 mg Q4H PRN Administration Pain Rated 7-10 Mupirocin 1 applic 04/01/24 09:00 04/02/24 08:14 Mupirocin 2% Oint 22 Gm Tube EACH NARE 04/05/24 21:01 1 applic Q12HR [facility] Administration Ondansetron HCl 4 mg 03/31/24 22:38 Ondansetron Inj 4 Mg/2 Ml Vial IV PUSH Q4H PRN Nausea And Vomiting Oseltamivir Phosphate 75 mg 04/01/24 21:00 04/02/24 08:12 Oseltamivir Phosphate 75 Mg Capsule PO 04/06/24 20:59 75 mg Q12HR [facility] Administration Fluticasone/Salmeterol 2 puff 04/01/24 20:00 04/02/24 08:32 Fluticasone/Salmeterol 45-21 Mcg Inhaler 1 Puff INHALATION 2 puff Q12HRT [facility] Administration Radiology Results: ITS Impressions Chest X-Ray 03/31/24 20:18 IMPRESSION: Right upper and middle lobe pneumonia, as detailed above. Labs Labs: Laboratory Results - last 24 hr 04/01/24 04/01/24 04/01/24 06:04 17:00 20:35 WBC RBC Hgb Hct MCV MCH MCHC RDW Plt Count MPV Immature Gran % (Auto) Neut % (Auto) Lymph % (Auto) [place] % (Auto) Eos % (Auto) Baso % (Auto) Lymph # (Auto) [place] # (Auto) Eos # (Auto) Baso # (Auto) Abs Immat Gran (auto) Absolute Neuts (auto) Absolute Nucleated RBC Nucleated RBC % Platelet Estimate Anisocytosis Schistocytes Sodium Potassium Chloride Carbon Dioxide Anion Gap BUN Creatinine Estim Creat Clear Calc Estimated GFR Glucose POC Capillary Glucose 284 H 271 H Hemoglobin A1c 10.9 H Lactic Acid Calcium Magnesium Total Bilirubin AST ALT Alkaline Phosphatase Total Protein Albumin 04/02/24 04/02/24 04/02/24 06:00 08:30 11:47 WBC 20.3 H RBC 4.07 L Hgb 12.6 Hct 37.5 MCV 92.1 MCH 31.0 MCHC 33.6 RDW 12.5 Plt Count 164 MPV 11.0 H Immature Gran % (Auto) 1.6 H Neut % (Auto) 79.3 H Lymph % (Auto) 13.8 L [place] % (Auto) 4.3 Eos % (Auto) 0.8 Baso % (Auto) 0.2 Lymph # (Auto) 2.80 [place] # (Auto) 0.9 H Eos # (Auto) 0.2 Baso # (Auto) 0.1 Abs Immat Gran (auto) 0.33 H Absolute Neuts (auto) 16.1 H Absolute Nucleated RBC 0.000 Nucleated RBC % 0.0 Platelet Estimate Adequate Anisocytosis 1+ Schistocytes None seen Sodium 136 L Potassium 3.5 Chloride 105 Carbon Dioxide 25 Anion Gap 6 BUN 18 H Creatinine 0.39 L Estim Creat Clear Calc 128 Estimated GFR > 60 Glucose 196 H POC Capillary Glucose 204 H 207 H Hemoglobin A1c Lactic Acid 1.0 Calcium 8.1 L Magnesium 2.1 Total Bilirubin 1.0 AST 50 H ALT 43 H Alkaline Phosphatase 53 Total Protein 6.0 L Albumin 2.9 L Quality VTE Prophylaxis VTE prophylaxis: pharmacologic ordered (Lovenox 40 mg subQ daily)
[2024-04-02 17:10] LABS: Glucose Point of Care 196 mg/dl (65-105)
[2024-04-02] MEDS: HYDROcodone/acetaminophen (*CRX) 10-325 MG TABLET 1 TAB PO ×2 (17:15→21:55)
[2024-04-02] MEDS: DOXYCYCLINE 100 MG/NS 100 ML 100 MG/100 ML BAG IVPB (17:16)
--- NOTE | 2024-04-02 17:48 | PC.NURSE ---
Gave pt's daughter, Marian, access to the patient portal with the QR code from [employer] with the pt's permission.
[2024-04-02] MEDS: INSULIN GLARGINE (*BKC) 100 UNITS/ML 20 UNITS SUB-Q (20:36)
[2024-04-02 20:46] LABS: Glucose Point of Care 216 mg/dl (65-105)
[2024-04-03] VITALS (16 sets, daily range): BP systolic 115–140; BP diastolic 57–64; PULSE 65–100; RESP 16–20; TEMP 36.3–37.9; O2SAT 91–94
[2024-04-03] MEDS: IPRATROPIUM 0.5 MG/ALBUTEROL SULFATE 2.5 MG AMPUL.NEB 3 ML INHALATION ×4 (02:34→20:55)
[2024-04-03] MEDS: HYDROcodone/acetaminophen (*CRX) 10-325 MG TABLET 1 TAB PO ×3 (05:38→20:35)
[2024-04-03] MEDS: ACETAMINOPHEN 325 MG TABLET 650 MG PO (05:39)
[2024-04-03 06:00] LABS: Estimated CRCL calculation 137 ml/min; Estimated Glomerular Filt Rate > 60
[2024-04-03] MEDS: FLUTICASONE/SALMETEROL 45-21 MCG INHALER 1 PUFF 2 PUFF INHALATION ×2 (08:17→20:56)
[2024-04-03] MEDS: OSELTAMIVIR PHOSPHATE 75 MG CAPSULE PO ×2 (09:04→20:35)
[2024-04-03] MEDS: DOXYCYCLINE 100 MG/NS 100 ML 100 MG/100 ML BAG IVPB ×2 (09:05→20:31)
[2024-04-03] MEDS: levoFLOXacin 750 MG/D5W 150 ML 750 MG/150 ML BAG 100 MG IVPB (09:05)
[2024-04-03 09:08] LABS: Glucose Point of Care 165 mg/dl (65-105)
[2024-04-03] MEDS: MUPIROCIN 2% OINT 22 GM TUBE 1 APPLIC EACH NARE ×2 (09:10→20:38)
[2024-04-03] MEDS: ENOXAPARIN 40 MG/0.4 ML SYRINGE SUB-Q (09:12)
[2024-04-03 10:23] LABS: Basophils Percent Auto 0.3 % (0.2-1.2); Eosinophils Percent Auto 0.1 % (0-4.4); Hematocrit 38.5 % (37.0-47.0); Hemoglobin 12.9 g/dL (12.0-15.0); Immature Granulocyte Absolute 0.19 K/mm3 (0.00-0.031); Immature Granulocyte Percent A 1.2 % (0-0.5); Lymphocytes Absolute Auto 2.13 K/mm3 (0.9-3.2); Lymphocytes Percent Auto 13.3 % (18.3-44.2); Mean Corpuscular HGB Conc 33.5 g/dl (32-36); Mean Corpuscular Hemoglobin 31.1 pg (26-34); Mean Corpuscular Volume 92.8 fl (80-100); Mean Platelet Volume 11.5 fl (7.4-10.4); Monocytes Absolute Auto 0.8 K/mm3 (0.1-0.6); Monocytes Percent Auto 4.9 % (2.6-8.5); Neutrophils Absolute Auto 12.8 K/mm3 (1.3-6.7); Neutrophils Percent Auto 80.2 % (45.5-73.1); Platelet Count Result 212 k/mm3 (150-375); Red Blood Count 4.15 M/mm3 (4.2-5.4); Red Cell Distribution Width 12.9 % (11.5-14.5)
[2024-04-03 10:43] LABS: Atypical Lymphocytes Present; Large Platelets Present; Platelet Estimate Adequate (Adequate); Schistocytes None Seen
[2024-04-03 12:47] LABS: Glucose Point of Care 171 mg/dl (65-105)
--- NOTE | 2024-04-03 16:57 | P.PNIM_ITS ---
Progress Note: A&P Assessment and Plan (1) Sepsis: Qualifiers: Sepsis type: sepsis due to unspecified organism Sepsis acute organ dysfunction status: with acute organ dysfunction Severe sepsis acute organ dysfunction type: acute respiratory failure Acute respiratory failure type: with hypoxia Severe sepsis shock status: without septic shock Qualified Code(s): A41.9 - Sepsis, unspecified organism; R65.20 - Severe sepsis without septic shock; J96.01 - Acute respiratory failure with hypoxia Code(s): A41.9 - Sepsis, unspecified organism Status: Acute (2) Respiratory failure: Qualifiers: Chronicity: acute Respiratory failure complication: hypoxia Qualified Code(s): J96.01 - Acute respiratory failure with hypoxia Code(s): J96.90 - Respiratory failure, unspecified, unspecified whether with hypoxia or hypercapnia Status: Acute (3) Influenza A with pneumonia: Code(s): J09.X1 - Influenza due to identified novel influenza A virus with pneumonia Status: Acute (4) Type 2 diabetes mellitus with hyperglycemia: Qualifiers: Diabetes mellitus mcc insulin use: without mcc use Qualified Code(s): E11.65 - Type 2 diabetes mellitus with hyperglycemia Code(s): E11.65 - Type 2 diabetes mellitus with hyperglycemia Status: Acute (5) Current smoker: Code(s): F17.200 - Nicotine dependence, unspecified, uncomplicated Status: Acute (6) Hypokalemia: Code(s): E87.6 - Hypokalemia Status: Acute Plan Acute hypoxic respiratory failure, resolved From pneumonia, flu and bronchospasm. Continue antibiotics, bronchodilator and Tamiflu. on 2 liters oxygen today from room air Sepsis , resolved From pneumonia Vital signs within normal limits. Continue antibiotics and follow-up cultures. Patient is having adequate oral intake, discontinue IVF. Pneumonia Chest x-ray showed a right upper middle lobe pneumonia. Follow-up cultures. MRSA positive Continue Levaquin and Doxy Monitor Influenza A Flu A positive Continue Tamiflu. Bronchospasm likely COPD exacerbation patient is a smoker, undiagnosed. Wheezing has resolved Continued treatment and Symbicort Monitor for wheezing. Tobacco use Patient counseled about cessation. Type 2 diabetes Sliding scale insulin with Accu-Cheks. DVT prophylaxis subQ Lovenox Possible discharge tomorrow Subjective Date/time seen: 04/03/24 16:57 Interval history: Comfortable at bedside Patient still requiring oxygen will monitor one more day and possibly discharge tomorrow Review of Systems Review of Systems: 12 systems were reviewed with pertinent positives and negatives per HPI. Except as documented in the HPI, all other systems were reviewed and are negative. Exam Narrative: Weight 68.3 kg BMI 26.7 Const: Other: Acutely ill-appearing, appears older than stated age, well-developed well- nourished HENMT: Other: Head is normocephalic atraumatic, mucous membranes are tacky, no oral pharyngeal erythema Eyes: Other: Pupils are equal and reactive, no scleral icterus, no conjunctival pallor Neck: Other: No JVD, trachea midline Resp: Other: End-expiratory wheezing bilateral lung cullen, coarse crackles right lung, marked tachypnea Cardio: Other: Sinus tachycardia, 2+ pulses bilateral radial and pedal, no murmur GI: Other: Soft, nontender, nondistended, positive bowel sounds Skin: Other: Hot to touch, mottling of the lower extremities, 2nd cap refill Neuro: Other: Alert oriented, speech is clear, no facial asymmetry, moves all extremities equally Extrem: Other: No clubbing, no cyanosis Psych: Other: Anxious, restless, judgment insight intact Objective Data Vital Signs Vital Signs: Vital Signs - 24 hr 04/02/24 19:55 04/02/24 20:00 04/02/24 20:02 Temperature Pulse Rate 89 89 Respiratory Rate 20 20 Blood Pressure Pulse Oximetry Oxygen Delivery Room Air Oxygen Flow Rate 04/02/24 21:37 04/03/24 02:35 04/03/24 02:40 Temperature 99.7 F H Pulse Rate 96 78 78 Respiratory Rate 20 18 18 Blood Pressure 117/69 Pulse Oximetry 92 Oxygen Delivery Oxygen Flow Rate 04/03/24 05:27 04/03/24 05:39 04/03/24 06:39 Temperature 100.2 F H 100.2 F H 99.2 F Pulse Rate 100 Respiratory Rate 18 Blood Pressure 140/64 Pulse Oximetry 92 Oxygen Delivery Oxygen Flow Rate 04/03/24 08:00 04/03/24 08:17 04/03/24 08:21 Temperature Pulse Rate 78 77 Respiratory Rate 18 18 Blood Pressure Pulse Oximetry 92 92 Oxygen Delivery Nasal Cannula Nasal Cannula Oxygen Flow Rate 2 2 04/03/24 08:28 04/03/24 14:00 04/03/24 14:35 Temperature 97.4 F L Pulse Rate 78 88 82 Respiratory Rate 18 17 18 Blood Pressure 115/57 L Pulse Oximetry 91 Oxygen Delivery Oxygen Flow Rate 04/03/24 14:41 Temperature Pulse Rate 81 Respiratory Rate 18 Blood Pressure Pulse Oximetry Oxygen Delivery Oxygen Flow Rate Intake/Output Intake/Output: Intake & Output 03/31/24 04/01/24 04/02/24 04/03/24 23:59 23:59 23:59 23:59 Intake Total 2100 3947 2117 760 Output Total 860 Balance 2100 3087 2117 760 Meds/Results Medications: Active Medications Generic Name Dose Route Start Last Admin Trade Name Freq PRN Reason Stop Dose Admin Acetaminophen 650 mg 03/31/24 22:35 04/03/24 05:39 Acetaminophen 325 Mg Tablet PO 650 mg Q4H PRN Administration Mild Pain (1-3) or Fever Hydrocodone Bitart/Acetaminophen 1 tab 04/02/24 17:06 04/03/24 14:42 Hydrocodone/Acetaminophen (*Crx) 10-325 Mg Tablet PO 1 tab Q4H PRN Administration Pain Rated 7-10 Albuterol/Ipratropium 3 ml 04/01/24 02:00 04/03/24 14:35 Ipratropium 0.5 Mg/Albuterol Sulfate 2.5 Mg Ampul.Neb 3 Ml INHALATION 3 ml Q6HRT [place] Administration Calcium Carbonate 200 mg 03/31/24 22:35 Calcium Carbonate (Tums) 500 Mg (200 Mg Elemental) PO Q6H PRN Indigestion Dextrose 12.5 gm 03/31/24 22:31 Dextrose 50% 25 Gm/50 Ml Syringe IV PUSH PRN PRN Hypoglycemia Protocol Enoxaparin Sodium 40 mg 04/02/24 09:00 04/03/24 09:12 Enoxaparin 40 Mg/0.4 Ml Syringe SUB-Q 40 mg DAILY [facility] Administration Glucagon 1 mg 03/31/24 22:31 Glucagon For Inj 1 Mg Vial IM PRN PRN Hypoglycemia Protocol Glucose 15 gm 03/31/24 22:31 Glucose Oral Gel 15 Gm Of Glucse In 37.5 Gm Tube PO PRN PRN Hypoglycemia Protocol Dextrose 1,000 mls @ 100 mls/hr 03/31/24 22:31 Dextrose 5% 1,000 Ml IVPB PRN PRN Hypoglycemia Protocol Levofloxacin/Dextrose 750 mg in 150 mls @ 100 mls/hr 04/02/24 08:00 04/03/24 09:05 Levaquin 750 Mg/D5w 150 Ml IVPB 100 mls/hr Q24H [facility] Administration Doxycycline Hyclate 100 mg in 100 mls @ 100 mls/hr 04/02/24 16:00 04/03/24 09:05 Vibramycin 100 Mg/Ns 100 Ml IVPB 100 mls/hr Q12HR [facility] Administration Ibuprofen 600 mg 04/01/24 01:25 04/02/24 01:26 Ibuprofen 600 Mg Tablet PO 600 mg Q6H PRN Administration pain 4-6 or fever Insulin Aspart 3 - 6 units 04/01/24 08:00 04/03/24 12:49 Insulin Aspart (*Bkc) 100 Units/Ml SUB-Q Not Given [facility] Protocol Insulin Aspart 1 - 3 units 04/01/24 21:00 04/02/24 20:36 Insulin Aspart (*Bkc) 100 Units/Ml SUB-Q 1 units HS [facility] Administration Protocol Insulin Glargine 20 units 04/02/24 21:00 04/02/24 20:36 Insulin Glargine (*Bkc) 100 Units/Ml SUB-Q 20 units HS [facility] Administration Morphine Sulfate 2 mg 04/01/24 14:51 04/02/24 14:33 Morphine Sulfate (*Crx) 2 Mg/Ml Inj IV PUSH 2 mg Q4H PRN Administration Breakthrough Pain Mupirocin 1 applic 04/01/24 09:00 04/03/24 09:10 Mupirocin 2% Oint 22 Gm Tube EACH NARE 04/05/24 21:01 1 applic Q12HR [facility] Administration Ondansetron HCl 4 mg 03/31/24 22:38 Ondansetron Inj 4 Mg/2 Ml Vial IV PUSH Q4H PRN Nausea And Vomiting Oseltamivir Phosphate 75 mg 04/01/24 21:00 04/03/24 09:04 Oseltamivir Phosphate 75 Mg Capsule PO 04/06/24 20:59 75 mg Q12HR [facility] Administration Fluticasone/Salmeterol 2 puff 04/01/24 20:00 04/03/24 08:17 Fluticasone/Salmeterol 45-21 Mcg Inhaler 1 Puff INHALATION 2 puff Q12HRT [facility] Administration Radiology Results: ITS Impressions Chest X-Ray 03/31/24 20:18 IMPRESSION: Right upper and middle lobe pneumonia, as detailed above. Chest CT 04/02/24 16:44 IMPRESSION: Multifocal pneumonia, as described on plain radiograph of the chest dated 03/31. Prior fracture deformity within the right seventh rib. No acute fractures are present. Labs Labs: Laboratory Results - last 24 hr 04/02/24 04/02/24 04/03/24 17:07 20:33 05:33 WBC 16.0 H RBC 4.15 L Hgb 12.9 Hct 38.5 MCV 92.8 MCH 31.1 MCHC 33.5 RDW 12.9 Plt Count 212 MPV 11.5 H Immature Gran % (Auto) 1.2 H Neut % (Auto) 80.2 H Lymph % (Auto) 13.3 L [place] % (Auto) 4.9 Eos % (Auto) 0.1 Baso % (Auto) 0.3 Lymph # (Auto) 2.13 [place] # (Auto) 0.8 H Eos # (Auto) 0.0 Baso # (Auto) 0.0 Abs Immat Gran (auto) 0.19 H Absolute Neuts (auto) 12.8 H Absolute Nucleated RBC 0.000 Nucleated RBC % 0.0 Atypical Lymphocytes Present Platelet Estimate Adequate Large Platelets Present Schistocytes None seen Creatinine Estim Creat Clear Calc Estimated GFR POC Capillary Glucose 196 H 216 H 04/03/24 04/03/24 04/03/24 05:35 09:06 12:41 WBC RBC Hgb Hct MCV MCH MCHC RDW Plt Count MPV Immature Gran % (Auto) Neut % (Auto) Lymph % (Auto) [place] % (Auto) Eos % (Auto) Baso % (Auto) Lymph # (Auto) [place] # (Auto) Eos # (Auto) Baso # (Auto) Abs Immat Gran (auto) Absolute Neuts (auto) Absolute Nucleated RBC Nucleated RBC % Atypical Lymphocytes Platelet Estimate Large Platelets Schistocytes Creatinine 0.36 L Estim Creat Clear Calc 137 Estimated GFR > 60 POC Capillary Glucose 165 H 171 H Quality VTE Prophylaxis VTE prophylaxis: pharmacologic ordered (Lovenox 40 mg subQ daily)
[2024-04-03 18:00] LABS: Glucose Point of Care 137 mg/dl (65-105)
[2024-04-03] MEDS: INSULIN GLARGINE (*BKC) 100 UNITS/ML 20 UNITS SUB-Q (20:35)
[2024-04-03 20:44] LABS: Glucose Point of Care 194 mg/dl (65-105)
[2024-04-04] VITALS (14 sets, daily range): BP systolic 119–127; BP diastolic 51–75; PULSE 82–97; RESP 16–20; TEMP 36.3–36.9; O2SAT 90–94
[2024-04-04] MEDS: IPRATROPIUM 0.5 MG/ALBUTEROL SULFATE 2.5 MG AMPUL.NEB 3 ML INHALATION ×4 (02:40→20:10)
[2024-04-04 05:38] LABS: Basophils Percent Auto 0.3 % (0.2-1.2); Eosinophils Absolute Auto 0.1 K/mm3 (0-0.3); Eosinophils Percent Auto 0.4 % (0-4.4); Hematocrit 38.1 % (37.0-47.0); Hemoglobin 12.9 g/dL (12.0-15.0); Immature Granulocyte Absolute 0.06 K/mm3 (0.00-0.031); Immature Granulocyte Percent A 0.5 % (0-0.5); Lymphocytes Percent Auto 20.1 % (18.3-44.2); Mean Corpuscular HGB Conc 33.9 g/dl (32-36); Mean Corpuscular Hemoglobin 30.9 pg (26-34); Mean Corpuscular Volume 91.4 fl (80-100); Mean Platelet Volume 10.4 fl (7.4-10.4); Monocytes Percent Auto 8.6 % (2.6-8.5); Neutrophils Percent Auto 70.1 % (45.5-73.1); Platelet Count Result 242 k/mm3 (150-375); Red Blood Count 4.17 M/mm3 (4.2-5.4); Red Cell Distribution Width 12.5 % (11.5-14.5); White Blood Count 11.4 K/mm3 (4.5-10.0)
[2024-04-04 05:50] LABS: Alanine Aminotransferase 23 U/L (6-35); Albumin Level 3.1 g/dL (3.5-5.1); Alkaline Phosphatase 54 U/L (38-126); Anion Gap 7 mmol/L (4-12); Aspartate Amino Transferase 15 U/L (14-36); Bilirubin,Total 1.3 mg/dL (0.2-1.3); Blood Urea Nitrogen 10 mg/dL (7-17); Calcium 8.1 mg/dL (8.4-10.2); Carbon Dioxide 28 mmol/L (22-30); Chloride 101 mmol/L (98-107); Estimated CRCL calculation 144 ml/min; Estimated Glomerular Filt Rate > 60; Glucose 97 mg/dL (65-110); Magnesium 1.9 mg/dL (1.6-2.3); Sodium 136 mmol/L (137-145)
[2024-04-04 06:22] LABS: Atypical Lymphocytes Present; Platelet Estimate Adequate (Adequate); Schistocytes None Seen
[2024-04-04] MEDS: FLUTICASONE/SALMETEROL 45-21 MCG INHALER 1 PUFF 2 PUFF INHALATION ×2 (08:33→20:10)
[2024-04-04] MEDS: HYDROcodone/acetaminophen (*CRX) 10-325 MG TABLET 1 TAB PO ×2 (08:55→18:00)
[2024-04-04] MEDS: POTASSIUM CHLORIDE INJ 40 MEQ in SODIUM CHLORIDE 0.9% IV 500 ML 130 MEQ IVPB (08:57)
[2024-04-04] MEDS: OSELTAMIVIR PHOSPHATE 75 MG CAPSULE PO ×2 (08:58→20:13)
[2024-04-04] MEDS: levoFLOXacin 750 MG/D5W 150 ML 750 MG/150 ML BAG 100 MG IVPB (08:58)
[2024-04-04] MEDS: POTASSIUM CHLORIDE 20 MEQ PACKET (FOR LIQUID) 40 MEQ PO (08:59)
[2024-04-04 09:05] LABS: Glucose Point of Care 103 mg/dl (65-105)
[2024-04-04] MEDS: ENOXAPARIN 40 MG/0.4 ML SYRINGE SUB-Q (09:47)
[2024-04-04] MEDS: MUPIROCIN 2% OINT 22 GM TUBE 1 APPLIC EACH NARE ×2 (09:47→20:15)
[2024-04-04] MEDS: DOXYCYCLINE 100 MG/NS 100 ML 100 MG/100 ML BAG IVPB ×2 (11:40→20:13)
--- NOTE | 2024-04-04 12:24 | P.PNIM_ITS ---
Progress Note: A&P Assessment and Plan (1) Sepsis: Qualifiers: Sepsis type: sepsis due to unspecified organism Sepsis acute organ dysfunction status: with acute organ dysfunction Severe sepsis acute organ dysfunction type: acute respiratory failure Acute respiratory failure type: with hypoxia Severe sepsis shock status: without septic shock Qualified Code(s): A41.9 - Sepsis, unspecified organism; R65.20 - Severe sepsis without septic shock; J96.01 - Acute respiratory failure with hypoxia Code(s): A41.9 - Sepsis, unspecified organism Status: Acute (2) Respiratory failure: Qualifiers: Chronicity: acute Respiratory failure complication: hypoxia Qualified Code(s): J96.01 - Acute respiratory failure with hypoxia Code(s): J96.90 - Respiratory failure, unspecified, unspecified whether with hypoxia or hypercapnia Status: Acute (3) Influenza A with pneumonia: Code(s): J09.X1 - Influenza due to identified novel influenza A virus with pneumonia Status: Acute (4) Type 2 diabetes mellitus with hyperglycemia: Qualifiers: Diabetes mellitus intermediate insulin use: without intermediate use Qualified Code(s): E11.65 - Type 2 diabetes mellitus with hyperglycemia Code(s): E11.65 - Type 2 diabetes mellitus with hyperglycemia Status: Acute (5) Current smoker: Code(s): F17.200 - Nicotine dependence, unspecified, uncomplicated Status: Acute (6) Hypokalemia: Code(s): E87.6 - Hypokalemia Status: Acute Plan Acute hypoxic respiratory failure, resolved From pneumonia, flu and bronchospasm. Continue antibiotics, bronchodilator and Tamiflu. 4 liters oxygen [place] Sepsis , resolved From pneumonia Vital signs within normal limits. Continue antibiotics and follow-up cultures. Patient is having adequate oral intake, discontinue IVF. Pneumonia Chest x-ray showed a right upper middle lobe pneumonia. Follow-up cultures. MRSA positive Continue Levaquin and Doxy Monitor Influenza A Flu A positive Continue Tamiflu. Bronchospasm likely COPD exacerbation patient is a smoker, undiagnosed. Wheezing has resolved Continue Duoneb treatment, prednisone and Symbicort Monitor for wheezing. Tobacco use Patient counseled about cessation. Type 2 diabetes Sliding scale insulin with Accu-Cheks. DVT prophylaxis subQ Lovenox Possible discharge tomorrow Subjective Date/time seen: 04/04/24 12:24 Interval history: Oxygen requirement worsened this morning from 2 liters oxygen to 4 liters this morning will monitor one more day Review of Systems Review of Systems: 12 systems were reviewed with pertinent positives and negatives per HPI. Except as documented in the HPI, all other systems were reviewed and are negative. Exam Narrative: Weight 68.3 kg BMI 26.7 Const: Other: Acutely ill-appearing, appears older than stated age, well-developed well- nourished HENMT: Other: Head is normocephalic atraumatic, mucous membranes are tacky, no oral pharyngeal erythema Eyes: Other: Pupils are equal and reactive, no scleral icterus, no conjunctival pallor Neck: Other: No JVD, trachea midline Resp: Other: End-expiratory wheezing bilateral lung cullen, coarse crackles right lung, marked tachypnea Cardio: Other: Sinus tachycardia, 2+ pulses bilateral radial and pedal, no murmur GI: Other: Soft, nontender, nondistended, positive bowel sounds Skin: Other: Hot to touch, mottling of the lower extremities, 2nd cap refill Neuro: Other: Alert oriented, speech is clear, no facial asymmetry, moves all extremities equally Extrem: Other: No clubbing, no cyanosis Psych: Other: Anxious, restless, judgment insight intact Objective Data Vital Signs Vital Signs: Vital Signs - 24 hr 04/03/24 14:00 04/03/24 14:35 04/03/24 14:41 Temperature 97.4 F L Pulse Rate 88 82 81 Respiratory Rate 17 18 18 Blood Pressure 115/57 L Pulse Oximetry 91 Oxygen Delivery Oxygen Flow Rate 04/03/24 20:00 04/03/24 20:57 04/03/24 20:57 Temperature Pulse Rate 66 Respiratory Rate 20 Blood Pressure Pulse Oximetry 94 93 Oxygen Delivery Nasal Cannula Nasal Cannula Oxygen Flow Rate 2 2 04/03/24 21:05 04/03/24 22:08 04/04/24 02:43 Temperature 98.0 F Pulse Rate 65 85 97 Respiratory Rate 20 16 20 Blood Pressure 115/62 Pulse Oximetry 93 Oxygen Delivery Oxygen Flow Rate 04/04/24 02:50 04/04/24 06:00 04/04/24 08:34 Temperature 98.3 F Pulse Rate 83 95 Respiratory Rate 20 16 Blood Pressure 122/55 L Pulse Oximetry 92 92 Oxygen Delivery Nasal Cannula Oxygen Flow Rate 3 04/04/24 08:34 04/04/24 08:45 Temperature Pulse Rate 85 88 Respiratory Rate 20 20 Blood Pressure Pulse Oximetry Oxygen Delivery Oxygen Flow Rate Intake/Output Intake/Output: Intake & Output 04/01/24 04/02/24 04/03/24 04/04/24 23:59 23:59 23:59 23:59 Intake Total 3947 2117 1600 840 Output Total 860 Balance 3087 2117 1600 840 Meds/Results Medications: Active Medications Generic Name Dose Route Start Last Admin Trade Name Freq PRN Reason Stop Dose Admin Acetaminophen 650 mg 03/31/24 22:35 04/03/24 05:39 Acetaminophen 325 Mg Tablet PO 650 mg Q4H PRN Administration Mild Pain (1-3) or Fever Hydrocodone Bitart/Acetaminophen 1 tab 04/02/24 17:06 04/04/24 08:55 Hydrocodone/Acetaminophen (*Crx) 10-325 Mg Tablet PO 1 tab Q4H PRN Administration Pain Rated 7-10 Albuterol/Ipratropium 3 ml 04/01/24 02:00 04/04/24 08:33 Ipratropium 0.5 Mg/Albuterol Sulfate 2.5 Mg Ampul.Neb 3 Ml INHALATION 3 ml Q6HRT [place] Administration Calcium Carbonate 200 mg 03/31/24 22:35 Calcium Carbonate (Tums) 500 Mg (200 Mg Elemental) PO Q6H PRN Indigestion Dextrose 12.5 gm 03/31/24 22:31 Dextrose 50% 25 Gm/50 Ml Syringe IV PUSH PRN PRN Hypoglycemia Protocol Enoxaparin Sodium 40 mg 04/02/24 09:00 04/04/24 09:47 Enoxaparin 40 Mg/0.4 Ml Syringe SUB-Q 40 mg DAILY [facility] Administration Glucagon 1 mg 03/31/24 22:31 Glucagon For Inj 1 Mg Vial IM PRN PRN Hypoglycemia Protocol Glucose 15 gm 03/31/24 22:31 Glucose Oral Gel 15 Gm Of Glucse In 37.5 Gm Tube PO PRN PRN Hypoglycemia Protocol Dextrose 1,000 mls @ 100 mls/hr 03/31/24 22:31 Dextrose 5% 1,000 Ml IVPB PRN PRN Hypoglycemia Protocol Levofloxacin/Dextrose 750 mg in 150 mls @ 100 mls/hr 04/02/24 08:00 04/04/24 08:58 Levaquin 750 Mg/D5w 150 Ml IVPB 100 mls/hr Q24H [facility] Administration Doxycycline Hyclate 100 mg in 100 mls @ 100 mls/hr 04/02/24 16:00 04/04/24 11:40 Vibramycin 100 Mg/Ns 100 Ml IVPB 100 mls/hr Q12HR [facility] Administration Ibuprofen 600 mg 04/01/24 01:25 04/02/24 01:26 Ibuprofen 600 Mg Tablet PO 600 mg Q6H PRN Administration pain 4-6 or fever Insulin Aspart 3 - 6 units 04/01/24 08:00 04/04/24 09:44 Insulin Aspart (*Bkc) 100 Units/Ml SUB-Q Not Given TIDWM [facility] Protocol Insulin Aspart 1 - 3 units 04/01/24 21:00 04/03/24 20:35 Insulin Aspart (*Bkc) 100 Units/Ml SUB-Q Not Given HS [facility] Protocol Insulin Glargine 20 units 04/02/24 21:00 04/03/24 20:35 Insulin Glargine (*Bkc) 100 Units/Ml SUB-Q 20 units HS [facility] Administration Morphine Sulfate 2 mg 04/01/24 14:51 04/02/24 14:33 Morphine Sulfate (*Crx) 2 Mg/Ml Inj IV PUSH 2 mg Q4H PRN Administration Breakthrough Pain Mupirocin 1 applic 04/01/24 09:00 04/04/24 09:47 Mupirocin 2% Oint 22 Gm Tube EACH NARE 04/05/24 21:01 1 applic Q12HR [place] Administration Ondansetron HCl 4 mg 03/31/24 22:38 Ondansetron Inj 4 Mg/2 Ml Vial IV PUSH Q4H PRN Nausea And Vomiting Oseltamivir Phosphate 75 mg 04/01/24 21:00 04/04/24 08:58 Oseltamivir Phosphate 75 Mg Capsule PO 04/06/24 20:59 75 mg Q12HR [place] Administration Fluticasone/Salmeterol 2 puff 04/01/24 20:00 04/04/24 08:33 Fluticasone/Salmeterol 45-21 Mcg Inhaler 1 Puff INHALATION 2 puff Q12HRT [facility] Administration Radiology Results: ITS Impressions Chest X-Ray 03/31/24 20:18 IMPRESSION: Right upper and middle lobe pneumonia, as detailed above. Chest CT 04/02/24 16:44 IMPRESSION: Multifocal pneumonia, as described on plain radiograph of the chest dated 03/31/2024. Prior fracture deformity within the right seventh rib. No acute fractures are present. Labs Labs: Laboratory Results - last 24 hr 04/03/24 04/03/24 04/03/24 12:41 17:57 20:34 WBC RBC Hgb Hct MCV MCH MCHC RDW Plt Count MPV Immature Gran % (Auto) Neut % (Auto) Lymph % (Auto) [place] % (Auto) Eos % (Auto) Baso % (Auto) Lymph # (Auto) [place] # (Auto) Eos # (Auto) Baso # (Auto) Abs Immat Gran (auto) Absolute Neuts (auto) Absolute Nucleated RBC Nucleated RBC % Atypical Lymphocytes Platelet Estimate Schistocytes Sodium Potassium Chloride Carbon Dioxide Anion Gap BUN Creatinine Estim Creat Clear Calc Estimated GFR Glucose POC Capillary Glucose 171 H 137 H 194 H Calcium Magnesium Total Bilirubin AST ALT Alkaline Phosphatase Total Protein Albumin 04/04/24 04/04/24 05:29 08:56 WBC 11.4 H RBC 4.17 L Hgb 12.9 Hct 38.1 MCV 91.4 MCH 30.9 MCHC 33.9 RDW 12.5 Plt Count 242 MPV 10.4 Immature Gran % (Auto) 0.5 Neut % (Auto) 70.1 Lymph % (Auto) 20.1 [place] % (Auto) 8.6 H Eos % (Auto) 0.4 Baso % (Auto) 0.3 Lymph # (Auto) 2.30 [place] # (Auto) 1.0 H Eos # (Auto) 0.1 Baso # (Auto) 0.0 Abs Immat Gran (auto) 0.06 H Absolute Neuts (auto) 8.0 H Absolute Nucleated RBC 0.000 Nucleated RBC % 0.0 Atypical Lymphocytes Present Platelet Estimate Adequate Schistocytes None seen Sodium 136 L Potassium 3.0 L Chloride 101 Carbon Dioxide 28 Anion Gap 7 BUN 10 D Creatinine 0.34 L Estim Creat Clear Calc 144 Estimated GFR > 60 Glucose 97 POC Capillary Glucose 103 Calcium 8.1 L Magnesium 1.9 Total Bilirubin 1.3 AST 15 ALT 23 Alkaline Phosphatase 54 Total Protein 6.0 L Albumin 3.1 L Quality VTE Prophylaxis VTE prophylaxis: pharmacologic ordered (Lovenox 40 mg subQ daily)
[2024-04-04 12:48] LABS: Glucose Point of Care 155 mg/dl (65-105)
[2024-04-04] MEDS: predniSONE 20 MG TABLET 40 MG PO (17:22)
[2024-04-04 17:57] LABS: Glucose Point of Care 120 mg/dl (65-105)
[2024-04-04] MEDS: INSULIN GLARGINE (*BKC) 100 UNITS/ML 20 UNITS SUB-Q (20:14)
[2024-04-05] VITALS (13 sets, daily range): BP systolic 129–137; BP diastolic 57–90; PULSE 77–90; RESP 16–20; TEMP 36.2–36.7; O2SAT 93–95
[2024-04-05] MEDS: IPRATROPIUM 0.5 MG/ALBUTEROL SULFATE 2.5 MG AMPUL.NEB 3 ML INHALATION ×4 (02:52→20:15)
[2024-04-05 06:02] LABS: Basophils Percent Auto 0.2 % (0.2-1.2); Eosinophils Percent Auto 0.2 % (0-4.4); Hematocrit 36.6 % (37.0-47.0); Hemoglobin 12.4 g/dL (12.0-15.0); Immature Granulocyte Absolute 0.13 K/mm3 (0.00-0.031); Immature Granulocyte Percent A 1.4 % (0-0.5); Lymphocytes Absolute Auto 1.83 K/mm3 (0.9-3.2); Lymphocytes Percent Auto 19.5 % (18.3-44.2); Mean Corpuscular HGB Conc 33.9 g/dl (32-36); Mean Corpuscular Hemoglobin 30.8 pg (26-34); Mean Platelet Volume 10.7 fl (7.4-10.4); Monocytes Absolute Auto 0.9 K/mm3 (0.1-0.6); Neutrophils Absolute Auto 6.6 K/mm3 (1.3-6.7); Neutrophils Percent Auto 69.7 % (45.5-73.1); Platelet Count Result 275 k/mm3 (150-375); Red Blood Count 4.02 M/mm3 (4.2-5.4); Red Cell Distribution Width 12.5 % (11.5-14.5); White Blood Count 9.4 K/mm3 (4.5-10.0)
[2024-04-05 06:23] LABS: Alanine Aminotransferase 21 U/L (6-35); Alkaline Phosphatase 54 U/L (38-126); Anion Gap 9 mmol/L (4-12); Aspartate Amino Transferase 17 U/L (14-36); Blood Urea Nitrogen 11 mg/dL (7-17); Calcium 8.5 mg/dL (8.4-10.2); Carbon Dioxide 25 mmol/L (22-30); Chloride 104 mmol/L (98-107); Estimated CRCL calculation 151 ml/min; Estimated Glomerular Filt Rate > 60; Glucose 183 mg/dL (65-110); Potassium 3.6 mmol/L (3.4-5.0); Sodium 138 mmol/L (137-145)
[2024-04-05] MEDS: HYDROcodone/acetaminophen (*CRX) 10-325 MG TABLET 1 TAB PO ×3 (06:39→20:32)
[2024-04-05 06:43] LABS: Glucose Point of Care 195 mg/dl (65-105)
--- NOTE | 2024-04-05 06:55 | PCRCNOTE ---
patient refused abg
[2024-04-05] MEDS: FLUTICASONE/SALMETEROL 45-21 MCG INHALER 1 PUFF 2 PUFF INHALATION ×2 (08:02→20:16)
[2024-04-05] MEDS: OSELTAMIVIR PHOSPHATE 75 MG CAPSULE PO ×2 (08:37→20:32)
[2024-04-05] MEDS: levoFLOXacin 750 MG/D5W 150 ML 750 MG/150 ML BAG 100 MG IVPB (08:37)
[2024-04-05] MEDS: predniSONE 20 MG TABLET 40 MG PO (08:37)
[2024-04-05] MEDS: ENOXAPARIN 40 MG/0.4 ML SYRINGE SUB-Q (08:38)
[2024-04-05] MEDS: MUPIROCIN 2% OINT 22 GM TUBE 1 APPLIC EACH NARE ×2 (08:38→20:36)
[2024-04-05 08:55] LABS: Glucose Point of Care 161 mg/dl (65-105)
[2024-04-05] MEDS: DOXYCYCLINE 100 MG/NS 100 ML 100 MG/100 ML BAG IVPB (11:21)
[2024-04-05 11:45] LABS: Glucose Point of Care 271 mg/dl (65-105)
[2024-04-05] MEDS: INSULIN ASPART (*BKC) 100 UNITS/ML SUB-Q ×3 (12:49→20:35)
[2024-04-05] MEDS: CEFEPIME 2 GM/NS 50 ML 2 GM/50 ML BAG IVPB ×2 (14:19→21:07)
[2024-04-05] MEDS: VANCOMYCIN 1,750 MG/NS 500 ML 1,750 MG/500 ML BAG 250 MG IVPB (15:19)
--- NOTE | 2024-04-05 15:58 | P.PNIM_ITS ---
Progress Note: A&P Assessment and Plan (1) Sepsis: Qualifiers: Sepsis type: sepsis due to unspecified organism Sepsis acute organ dysfunction status: with acute organ dysfunction Severe sepsis acute organ dysfunction type: acute respiratory failure Acute respiratory failure type: with hypoxia Severe sepsis shock status: without septic shock Qualified Code(s): A41.9 - Sepsis, unspecified organism; R65.20 - Severe sepsis without septic shock; J96.01 - Acute respiratory failure with hypoxia Code(s): A41.9 - Sepsis, unspecified organism Status: Acute (2) Respiratory failure: Qualifiers: Chronicity: acute Respiratory failure complication: hypoxia Qualified Code(s): J96.01 - Acute respiratory failure with hypoxia Code(s): J96.90 - Respiratory failure, unspecified, unspecified whether with hypoxia or hypercapnia Status: Acute (3) Influenza A with pneumonia: Code(s): J09.X1 - Influenza due to identified novel influenza A virus with pneumonia Status: Acute (4) Type 2 diabetes mellitus with hyperglycemia: Qualifiers: Diabetes mellitus jail insulin use: without jail use Qualified Code(s): E11.65 - Type 2 diabetes mellitus with hyperglycemia Code(s): E11.65 - Type 2 diabetes mellitus with hyperglycemia Status: Acute (5) Current smoker: Code(s): F17.200 - Nicotine dependence, unspecified, uncomplicated Status: Acute (6) Hypokalemia: Code(s): E87.6 - Hypokalemia Status: Acute Plan MRSA bacteremia Likely from pneumonia however rule out Endocarditis [facility] ordered repeat blood culture Continue CEfepime and Vanc day 1 Acute hypoxic respiratory failure From pneumonia, flu and bronchospasm. Continue antibiotics as below , bronchodilator and Tamiflu. 4 liters oxygen [place] Sepsis , resolved From pneumonia Vital signs within normal limits. Continue antibiotics as below and follow-up cultures. Patient is having adequate oral intake, discontinue IVF. Pneumonia Chest x-ray showed a right upper middle lobe pneumonia. Follow-up cultures. MRSA positive patient failed Levaquin and Doxy as pneumonia advanced per repeat CXR Started on Cefepime and Vanc today (04/05/24) Monitor Influenza A Flu A positive Continue Tamiflu. Bronchospasm likely COPD exacerbation patient is a smoker, undiagnosed. Wheezing has resolved Continue Duoneb treatment, prednisone and Symbicort Monitor for wheezing. Tobacco use Patient counseled about cessation. Type 2 diabetes Sliding scale insulin with Accu-Cheks. DVT prophylaxis subQ Lovenox Pending clinical course Subjective Date/time seen: 04/05/24 15:58 Interval history: Oxygen requirement worsened this morning Still On 4 liters oxygen REpeat CXR showed worsening Pneumonia Blood culture positive MRSA Started on Vanc and Cefepime today Review of Systems Review of Systems: 12 systems were reviewed with pertinent positives and negatives per HPI. Except as documented in the HPI, all other systems were reviewed and are negative. Exam Narrative: Weight 68.3 kg BMI 26.7 Const: Other: Acutely ill-appearing, appears older than stated age, well-developed well- nourished HENMT: Other: Head is normocephalic atraumatic, mucous membranes are tacky, no oral pharyngeal erythema Eyes: Other: Pupils are equal and reactive, no scleral icterus, no conjunctival pallor Neck: Other: No JVD, trachea midline Resp: Other: End-expiratory wheezing bilateral lung cullen, coarse crackles right lung, marked tachypnea Cardio: Other: Sinus tachycardia, 2+ pulses bilateral radial and pedal, no murmur GI: Other: Soft, nontender, nondistended, positive bowel sounds Skin: Other: Hot to touch, mottling of the lower extremities, 2nd cap refill Neuro: Other: Alert oriented, speech is clear, no facial asymmetry, moves all extremities equally Extrem: Other: No clubbing, no cyanosis Psych: Other: Anxious, restless, judgment insight intact Objective Data Vital Signs Vital Signs: Vital Signs - 24 hr 04/04/24 19:59 04/04/24 20:00 04/04/24 20:15 Temperature 97.3 F L Pulse Rate 87 Respiratory Rate 16 Blood Pressure 119/51 L Pulse Oximetry 92 92 90 Oxygen Delivery Nasal Cannula Room Air Oxygen Flow Rate 3 04/04/24 20:17 04/04/24 20:30 04/05/24 02:54 Temperature Pulse Rate 89 89 77 Respiratory Rate 18 18 18 Blood Pressure Pulse Oximetry Oxygen Delivery Oxygen Flow Rate 04/05/24 03:04 04/05/24 06:00 04/05/24 08:04 Temperature 97.1 F L Pulse Rate 79 79 Respiratory Rate 18 16 Blood Pressure 129/61 Pulse Oximetry 95 93 Oxygen Delivery Nasal Cannula Oxygen Flow Rate 3 04/05/24 08:04 04/05/24 08:15 04/05/24 14:00 Temperature 98.0 F Pulse Rate 84 85 85 Respiratory Rate 18 18 16 Blood Pressure 137/90 Pulse Oximetry 93 Oxygen Delivery Oxygen Flow Rate 04/05/24 14:14 04/05/24 14:26 Temperature Pulse Rate 90 84 Respiratory Rate 18 18 Blood Pressure Pulse Oximetry Oxygen Delivery Oxygen Flow Rate Intake/Output Intake/Output: Intake & Output 04/02/24 04/03/24 04/04/24 04/05/24 23:59 23:59 23:59 23:59 Intake Total 211 1600 2100 980 Balance 2116 1600 2100 980 Meds/Results Medications: Active Medications Generic Name Dose Route Start Last Admin Trade Name Freq PRN Reason Stop Dose Admin Acetaminophen 650 mg 03/31/24 22:35 04/03/24 05:39 Acetaminophen 325 Mg Tablet PO 650 mg Q4H PRN Administration Mild Pain (1-3) or Fever Hydrocodone Bitart/Acetaminophen 1 tab 04/02/24 17:06 04/05/24 15:18 Hydrocodone/Acetaminophen (*Crx) 10-325 Mg Tablet PO 1 tab Q4H PRN Administration Pain Rated 7-10 Albuterol/Ipratropium 3 ml 04/01/24 02:00 04/05/24 14:14 Ipratropium 0.5 Mg/Albuterol Sulfate 2.5 Mg Ampul.Neb 3 Ml INHALATION 3 ml Q6HRT [facility] Administration Calcium Carbonate 200 mg 03/31/24 22:35 Calcium Carbonate (Tums) 500 Mg (200 Mg Elemental) PO Q6H PRN Indigestion Dextrose 12.5 gm 03/31/24 22:31 Dextrose 50% 25 Gm/50 Ml Syringe IV PUSH PRN PRN Hypoglycemia Protocol Enoxaparin Sodium 40 mg 04/02/24 09:00 04/05/24 08:38 Enoxaparin 40 Mg/0.4 Ml Syringe SUB-Q 40 mg DAILY [facility] Administration Glucagon 1 mg 03/31/24 22:31 Glucagon For Inj 1 Mg Vial IM PRN PRN Hypoglycemia Protocol Glucose 15 gm 03/31/24 22:31 Glucose Oral Gel 15 Gm Of Glucse In 37.5 Gm Tube PO PRN PRN Hypoglycemia Protocol Dextrose 1,000 mls @ 100 mls/hr 03/31/24 22:31 Dextrose 5% 1,000 Ml IVPB PRN PRN Hypoglycemia Protocol Cefepime HCl 2 gm in 50 mls @ 100 mls/hr 04/05/24 13:30 04/05/24 14:19 Maxipime 2 Gm/Ns 50 Ml IVPB 100 mls/hr Q8HR [facility] Administration Vancomycin HCl 1,750 mg in 500 mls @ 250 mls/hr 04/05/24 14:00 04/05/24 15:19 Vancomycin 1,750 Mg/Ns 500 Ml IVPB 04/05/24 15:59 250 mls/hr ONCE ONE Administration Vancomycin HCl 1,250 mg in 250 mls @ 166.667 mls/hr 04/06/24 03:00 Vancomycin 1,250 Mg/Ns 250 Ml IVPB Q12H [facility] Ibuprofen 600 mg 04/01/24 01:25 04/02/24 01:26 Ibuprofen 600 Mg Tablet PO 600 mg Q6H PRN Administration pain 4-6 or fever Insulin Aspart 3 - 6 units 04/01/24 08:00 04/05/24 12:49 Insulin Aspart (*Bkc) 100 Units/Ml SUB-Q 4 units TIDWM [facility] Administration Protocol Insulin Aspart 1 - 3 units 04/01/24 21:00 04/04/24 20:13 Insulin Aspart (*Bkc) 100 Units/Ml SUB-Q Not Given HS [facility] Protocol Insulin Glargine 20 units 04/02/24 21:00 04/04/24 20:14 Insulin Glargine (*Bkc) 100 Units/Ml SUB-Q 20 units HS [facility] Administration Morphine Sulfate 2 mg 04/01/24 14:51 04/02/24 14:33 Morphine Sulfate (*Crx) 2 Mg/Ml Inj IV PUSH 2 mg Q4H PRN Administration Breakthrough Pain Mupirocin 1 applic 04/01/24 09:00 04/05/24 08:38 Mupirocin 2% Oint 22 Gm Tube EACH NARE 04/05/24 21:01 1 applic Q12HR [facility] Administration Ondansetron HCl 4 mg 03/31/24 22:38 Ondansetron Inj 4 Mg/2 Ml Vial IV PUSH Q4H PRN Nausea And Vomiting Oseltamivir Phosphate 75 mg 04/01/24 21:00 04/05/24 08:37 Oseltamivir Phosphate 75 Mg Capsule PO 04/06/24 20:59 75 mg Q12HR [facility] Administration Prednisone 40 mg 04/04/24 12:30 04/05/24 08:37 Prednisone 20 Mg Tablet PO 40 mg DAILY@0800 [facility] Administration Fluticasone/Salmeterol 2 puff 04/01/24 20:00 04/05/24 08:02 Fluticasone/Salmeterol 45-21 Mcg Inhaler 1 Puff INHALATION 2 puff Q12HRT [facility] Administration Radiology Results: ITS Impressions Chest X-Ray 03/31/24 20:18 IMPRESSION: Right upper and middle lobe pneumonia, as detailed above. Chest CT 04/04/24 14:55 IMPRESSION: Progression of multifocal pneumonia, as detailed above. Labs Labs: Laboratory Results - last 24 hr 04/04/24 04/04/24 04/05/24 17:45 19:44 05:43 WBC 9.4 RBC 4.02 L Hgb 12.4 Hct 36.6 L MCV 91.0 MCH 30.8 MCHC 33.9 RDW 12.5 Plt Count 275 MPV 10.7 H Immature Gran % (Auto) 1.4 H Neut % (Auto) 69.7 Lymph % (Auto) 19.5 [place] % (Auto) 9.0 H Eos % (Auto) 0.2 Baso % (Auto) 0.2 Lymph # (Auto) 1.83 [place] # (Auto) 0.9 H Eos # (Auto) 0.0 Baso # (Auto) 0.0 Abs Immat Gran (auto) 0.13 H Absolute Neuts (auto) 6.6 Absolute Nucleated RBC 0.000 Nucleated RBC % 0.0 Sodium 138 Potassium 3.6 Chloride 104 Carbon Dioxide 25 Anion Gap 9 BUN 11 Creatinine 0.32 L Estim Creat Clear Calc 151 Estimated GFR > 60 Glucose 183 H POC Capillary Glucose 120 H 195 H Calcium 8.5 Magnesium 2.0 Total Bilirubin 1.0 AST 17 ALT 21 Alkaline Phosphatase 54 Total Protein 6.0 L Albumin 3.0 L 04/05/24 04/05/24 08:47 11:43 WBC RBC Hgb Hct MCV MCH MCHC RDW Plt Count MPV Immature Gran % (Auto) Neut % (Auto) Lymph % (Auto) [place] % (Auto) Eos % (Auto) Baso % (Auto) Lymph # (Auto) [place] # (Auto) Eos # (Auto) Baso # (Auto) Abs Immat Gran (auto) Absolute Neuts (auto) Absolute Nucleated RBC Nucleated RBC % Sodium Potassium Chloride Carbon Dioxide Anion Gap BUN Creatinine Estim Creat Clear Calc Estimated GFR Glucose POC Capillary Glucose 161 H 271 H Calcium Magnesium Total Bilirubin AST ALT Alkaline Phosphatase Total Protein Albumin Quality VTE Prophylaxis VTE prophylaxis: pharmacologic ordered (Lovenox 40 mg subQ daily)
[2024-04-05 16:52] LABS: Glucose Point of Care 276 mg/dl (65-105)
[2024-04-05] MEDS: INSULIN GLARGINE (*BKC) 100 UNITS/ML 20 UNITS SUB-Q (20:34)
[2024-04-05 20:43] LABS: Glucose Point of Care 205 mg/dl (65-105)
[2024-04-06] VITALS (13 sets, daily range): BP systolic 133–153; BP diastolic 74–80; PULSE 73–90; RESP 16–24; TEMP 36.4–36.8; O2SAT 91–95
[2024-04-06] MEDS: IPRATROPIUM 0.5 MG/ALBUTEROL SULFATE 2.5 MG AMPUL.NEB 3 ML INHALATION ×4 (02:24→21:28)
[2024-04-06] MEDS: VANCOMYCIN 1,250 MG/NS 250 ML 1,250 MG/250 ML BAG 166.67 MG IVPB ×2 (02:27→15:09)
[2024-04-06] MEDS: CEFEPIME 2 GM/NS 50 ML 2 GM/50 ML BAG IVPB ×3 (05:49→21:32)
[2024-04-06 07:18] LABS: Basophils Percent Auto 0.4 % (0.2-1.2); Eosinophils Absolute Auto 0.1 K/mm3 (0-0.3); Eosinophils Percent Auto 1.1 % (0-4.4); Hematocrit 36.9 % (37.0-47.0); Immature Granulocyte Percent A 2.1 % (0-0.5); Lymphocytes Absolute Auto 1.98 K/mm3 (0.9-3.2); Lymphocytes Percent Auto 21.1 % (18.3-44.2); Mean Corpuscular HGB Conc 32.5 g/dl (32-36); Mean Corpuscular Hemoglobin 30.2 pg (26-34); Mean Corpuscular Volume 92.9 fl (80-100); Mean Platelet Volume 10.4 fl (7.4-10.4); Monocytes Absolute Auto 1.2 K/mm3 (0.1-0.6); Monocytes Percent Auto 12.4 % (2.6-8.5); Neutrophils Absolute Auto 5.9 K/mm3 (1.3-6.7); Neutrophils Percent Auto 62.9 % (45.5-73.1); Platelet Count Result 333 k/mm3 (150-375); Red Blood Count 3.97 M/mm3 (4.2-5.4); Red Cell Distribution Width 12.4 % (11.5-14.5); White Blood Count 9.4 K/mm3 (4.5-10.0)
[2024-04-06] MEDS: FLUTICASONE/SALMETEROL 45-21 MCG INHALER 1 PUFF 2 PUFF INHALATION ×2 (07:23→21:30)
[2024-04-06] MEDS: HYDROcodone/acetaminophen (*CRX) 10-325 MG TABLET 1 TAB PO ×3 (07:23→18:47)
[2024-04-06 07:29] LABS: Lactic Acid Reflex 0.9 mmol/L (0.7-2.0)
[2024-04-06 07:37] LABS: Potassium 3.2 mmol/L (3.4-5.0)
[2024-04-06 07:42] LABS: Alanine Aminotransferase 22 U/L (6-35); Albumin Level 2.7 g/dL (3.5-5.1); Alkaline Phosphatase 45 U/L (38-126); Anion Gap 6 mmol/L (4-12); Aspartate Amino Transferase 21 U/L (14-36); Bilirubin,Total 1.1 mg/dL (0.2-1.3); Blood Urea Nitrogen 15 mg/dL (7-17); Calcium 8.3 mg/dL (8.4-10.2); Carbon Dioxide 28 mmol/L (22-30); Chloride 105 mmol/L (98-107); Estimated CRCL calculation 140 ml/min; Estimated Glomerular Filt Rate > 60; Glucose 141 mg/dL (65-110); Magnesium 1.7 mg/dL (1.6-2.3); Sodium 139 mmol/L (137-145)
[2024-04-06 08:42] LABS: Glucose Point of Care 153 mg/dl (65-105)
[2024-04-06] MEDS: ENOXAPARIN 40 MG/0.4 ML SYRINGE SUB-Q (08:47)
[2024-04-06] MEDS: predniSONE 20 MG TABLET 40 MG PO (08:47)
[2024-04-06] MEDS: OSELTAMIVIR PHOSPHATE 75 MG CAPSULE PO (08:47)
[2024-04-06 11:49] LABS: Glucose Point of Care 162 mg/dl (65-105)
[2024-04-06 16:54] LABS: Glucose Point of Care 248 mg/dl (65-105)
[2024-04-06] MEDS: INSULIN ASPART (*BKC) 100 UNITS/ML SUB-Q ×2 (17:52→20:26)
--- NOTE | 2024-04-06 18:11 | PM.IMPN ---
Progress Note: A&P Assessment and Plan (1) Sepsis: Qualifiers: Sepsis type: sepsis due to unspecified organism Sepsis acute organ dysfunction status: with acute organ dysfunction Severe sepsis acute organ dysfunction type: acute respiratory failure Acute respiratory failure type: with hypoxia Severe sepsis shock status: without septic shock Qualified Code(s): A41.9 - Sepsis, unspecified organism; R65.20 - Severe sepsis without septic shock; J96.01 - Acute respiratory failure with hypoxia Code(s): A41.9 - Sepsis, unspecified organism Status: Acute (2) Respiratory failure: Qualifiers: Chronicity: acute Respiratory failure complication: hypoxia Qualified Code(s): J96.01 - Acute respiratory failure with hypoxia Code(s): J96.90 - Respiratory failure, unspecified, unspecified whether with hypoxia or hypercapnia Status: Acute (3) Influenza A with pneumonia: Code(s): J09.X1 - Influenza due to identified novel influenza A virus with pneumonia Status: Acute (4) Type 2 diabetes mellitus with hyperglycemia: Qualifiers: Diabetes mellitus prison insulin use: without prison use Qualified Code(s): E11.65 - Type 2 diabetes mellitus with hyperglycemia Code(s): E11.65 - Type 2 diabetes mellitus with hyperglycemia Status: Acute (5) Current smoker: Code(s): F17.200 - Nicotine dependence, unspecified, uncomplicated Status: Acute (6) Hypokalemia: Code(s): E87.6 - Hypokalemia Status: Acute Plan MRSA bacteremia Likely from pneumonia however rule out Endocarditis [facility] ordered repeat blood culture Continue CEfepime and Vanc day 1 Acute hypoxic respiratory failure From pneumonia, flu and bronchospasm. Continue antibiotics as below , bronchodilator and Tamiflu. 4 liters oxygen [place] Sepsis , resolved From pneumonia Vital signs within normal limits. Continue antibiotics as below and follow-up cultures. Patient is having adequate oral intake, discontinue IVF. Pneumonia Chest x-ray showed a right upper middle lobe pneumonia. Follow-up cultures. MRSA positive patient failed Levaquin and Doxy as pneumonia advanced per repeat CXR Started on Cefepime and Vanc today (04/05/24) Monitor Influenza A Flu A positive Continue Tamiflu. Bronchospasm likely COPD exacerbation patient is a smoker, undiagnosed. Wheezing has resolved Continue Duoneb treatment, prednisone and Symbicort Monitor for wheezing. Tobacco use Patient counseled about cessation. Type 2 diabetes Sliding scale insulin with Accu-Cheks. DVT prophylaxis subQ Lovenox Pending clinical course Subjective Date/time seen: 04/06/24 18:11 Interval history: Cardiology is consulted for [facility]. Patient is a long-time smoker 2 packs per day. Review of Systems Review of Systems: 12 systems were reviewed with pertinent positives and negatives per HPI. Except as documented in the HPI, all other systems were reviewed and are negative. Exam Narrative: Weight 68.3 kg BMI 26.7 Const: Other: Acutely ill-appearing, appears older than stated age, well-developed well-nourished HENMT: Other: Head is normocephalic atraumatic, mucous membranes are tacky, no oral pharyngeal erythema Eyes: Other: Pupils are equal and reactive, no scleral icterus, no conjunctival pallor Neck: Other: No JVD, trachea midline Resp: Other: End-expiratory wheezing bilateral lung cullen, coarse crackles right lung, marked tachypnea Cardio: Other: Sinus tachycardia, 2+ pulses bilateral radial and pedal, no murmur GI: Other: Soft, nontender, nondistended, positive bowel sounds Skin: Other: Hot to touch, mottling of the lower extremities, 2nd cap refill Neuro: Other: Alert oriented, speech is clear, no facial asymmetry, moves all extremities equally Extrem: Other: No clubbing, no cyanosis Psych: Other: Anxious, restless, judgment insight intact Objective Data Vital Signs Vital Signs: Vital Signs - 24 hr 04/05/24 20:00 04/05/24 20:15 04/05/24 20:15 Temperature Pulse Rate 77 Respiratory Rate 20 Blood Pressure Pulse Oximetry 93 93 Oxygen Delivery Nasal Cannula Nasal Cannula Oxygen Flow Rate 3 3 Fraction of Inspired Oxygen 32 04/05/24 20:25 04/05/24 22:19 04/06/24 02:24 Temperature 97.8 F Pulse Rate 79 83 77 Respiratory Rate 20 16 18 Blood Pressure 135/57 L Pulse Oximetry 93 Oxygen Delivery Oxygen Flow Rate Fraction of Inspired Oxygen 04/06/24 02:33 04/06/24 06:00 04/06/24 07:24 Temperature 98.0 F Pulse Rate 82 80 81 Respiratory Rate 18 16 20 Blood Pressure 133/74 Pulse Oximetry 93 91 Oxygen Delivery Nasal Cannula Oxygen Flow Rate 3 Fraction of Inspired Oxygen 04/06/24 07:24 04/06/24 07:35 04/06/24 08:00 Temperature Pulse Rate 81 83 Respiratory Rate 20 20 Blood Pressure Pulse Oximetry 91 Oxygen Delivery Nasal Cannula Oxygen Flow Rate 3 Fraction of Inspired Oxygen 04/06/24 14:00 04/06/24 14:06 04/06/24 14:16 Temperature 97.6 F Pulse Rate 90 86 90 Respiratory Rate 24 H 20 20 Blood Pressure 147/79 H Pulse Oximetry 93 Oxygen Delivery Oxygen Flow Rate Fraction of Inspired Oxygen Intake/Output Intake/Output: Intake & Output 04/03/24 04/04/24 04/05/24 04/06/24 23:59 23:59 23:59 23:59 Intake Total 1600 2100 1680 1170 Balance 1600 2100 1680 1170 Meds/Results Medications: Active Medications Generic Name Dose Route Start Last Admin Trade Name Freq PRN Reason Stop Dose Admin Acetaminophen 650 mg 03/31/24 22:35 04/03/24 05:39 Acetaminophen 325 Mg Tablet PO 650 mg Q4H PRN Administration Mild Pain (1-3) or Fever Hydrocodone Bitart/Acetaminophen 1 tab 04/02/24 17:06 04/06/24 13:16 Hydrocodone/Acetaminophen (*Crx) 10-325 Mg Tablet PO 1 tab Q4H PRN Administration Pain Rated 7-10 Albuterol/Ipratropium 3 ml 04/01/24 02:00 04/06/24 14:05 Ipratropium 0.5 Mg/Albuterol Sulfate 2.5 Mg Ampul.Neb 3 Ml INHALATION 3 ml Q6HRT [facility] Administration Calcium Carbonate 200 mg 03/31/24 22:35 Calcium Carbonate (Tums) 500 Mg (200 Mg Elemental) PO Q6H PRN Indigestion Dextrose 12.5 gm 03/31/24 22:31 Dextrose 50% 25 Gm/50 Ml Syringe IV PUSH PRN PRN Hypoglycemia Protocol Enoxaparin Sodium 40 mg 04/02/24 09:00 04/06/24 08:47 Enoxaparin 40 Mg/0.4 Ml Syringe SUB-Q 40 mg DAILY [facility] Administration Glucagon 1 mg 03/31/24 22:31 Glucagon For Inj 1 Mg Vial IM PRN PRN Hypoglycemia Protocol Glucose 15 gm 03/31/24 22:31 Glucose Oral Gel 15 Gm Of Glucse In 37.5 Gm Tube PO PRN PRN Hypoglycemia Protocol Dextrose 1,000 mls @ 100 mls/hr 03/31/24 22:31 Dextrose 5% 1,000 Ml IVPB PRN PRN Hypoglycemia Protocol Cefepime HCl 2 gm in 50 mls @ 100 mls/hr 04/05/24 13:30 04/06/24 14:37 Maxipime 2 Gm/Ns 50 Ml IVPB 100 mls/hr Q8HR [facility] Administration Vancomycin HCl 1,250 mg in 250 mls @ 166.667 mls/hr 04/06/24 03:00 04/06/24 15:09 Vancomycin 1,250 Mg/Ns 250 Ml IVPB 166.67 mls/hr Q12H [facility] Administration Ibuprofen 600 mg 04/01/24 01:25 04/02/24 01:26 Ibuprofen 600 Mg Tablet PO 600 mg Q6H PRN Administration pain 4-6 or fever Insulin Aspart 3 - 6 units 04/01/24 08:00 04/06/24 17:52 Insulin Aspart (*Bkc) 100 Units/Ml SUB-Q 3 units TIDWM [facility] Administration Protocol Insulin Aspart 1 - 3 units 04/01/24 21:00 04/05/24 20:35 Insulin Aspart (*Bkc) 100 Units/Ml SUB-Q 1 units HS [facility] Administration Protocol Insulin Glargine 20 units 04/02/24 21:00 04/05/24 20:34 Insulin Glargine (*Bkc) 100 Units/Ml SUB-Q 20 units HS [facility] Administration Morphine Sulfate 2 mg 04/01/24 14:51 04/02/24 14:33 Morphine Sulfate (*Crx) 2 Mg/Ml Inj IV PUSH 2 mg Q4H PRN Administration Breakthrough Pain Ondansetron HCl 4 mg 03/31/24 22:38 Ondansetron Inj 4 Mg/2 Ml Vial IV PUSH Q4H PRN Nausea And Vomiting Oseltamivir Phosphate 75 mg 04/01/24 21:00 04/06/24 08:47 Oseltamivir Phosphate 75 Mg Capsule PO 04/06/24 20:59 75 mg Q12HR [facility] Administration Prednisone 40 mg 04/04/24 12:30 04/06/24 08:47 Prednisone 20 Mg Tablet PO 40 mg DAILY@0800 [facility] Administration Fluticasone/Salmeterol 2 puff 04/01/24 20:00 04/06/24 07:23 Fluticasone/Salmeterol 45-21 Mcg Inhaler 1 Puff INHALATION 2 puff Q12HRT [facility] Administration Radiology Results: ITS Impressions Chest X-Ray 03/31/24 20:18 IMPRESSION: Right upper and middle lobe pneumonia, as detailed above. Chest CT 04/04/24 14:55 IMPRESSION: Progression of multifocal pneumonia, as detailed above. Labs Labs: Laboratory Results - last 24 hr 04/05/24 04/06/24 04/06/24 20:34 07:05 08:37 WBC 9.4 RBC 3.97 L Hgb 12.0 Hct 36.9 L MCV 92.9 MCH 30.2 MCHC 32.5 RDW 12.4 Plt Count 333 MPV 10.4 Immature Gran % (Auto) 2.1 H Neut % (Auto) 62.9 Lymph % (Auto) 21.1 [place] % (Auto) 12.4 H Eos % (Auto) 1.1 Baso % (Auto) 0.4 Lymph # (Auto) 1.98 [place] # (Auto) 1.2 H Eos # (Auto) 0.1 Baso # (Auto) 0.0 Abs Immat Gran (auto) 0.20 H Absolute Neuts (auto) 5.9 Absolute Nucleated RBC 0.000 Nucleated RBC % 0.0 Sodium 139 Potassium 3.2 L Chloride 105 Carbon Dioxide 28 Anion Gap 6 BUN 15 Creatinine 0.35 L Estim Creat Clear Calc 140 Estimated GFR > 60 Glucose 141 H POC Capillary Glucose 205 H 153 H Lactic Acid 0.9 Calcium 8.3 L Magnesium 1.7 Total Bilirubin 1.1 AST 21 ALT 22 Alkaline Phosphatase 45 Total Protein 7.0 Albumin 2.7 L 04/06/24 04/06/24 11:40 16:49 WBC RBC Hgb Hct MCV MCH MCHC RDW Plt Count MPV Immature Gran % (Auto) Neut % (Auto) Lymph % (Auto) [place] % (Auto) Eos % (Auto) Baso % (Auto) Lymph # (Auto) [place] # (Auto) Eos # (Auto) Baso # (Auto) Abs Immat Gran (auto) Absolute Neuts (auto) Absolute Nucleated RBC Nucleated RBC % Sodium Potassium Chloride Carbon Dioxide Anion Gap BUN Creatinine Estim Creat Clear Calc Estimated GFR Glucose POC Capillary Glucose 162 H 248 H Lactic Acid Calcium Magnesium Total Bilirubin AST ALT Alkaline Phosphatase Total Protein Albumin Quality VTE Prophylaxis VTE prophylaxis: pharmacologic ordered (Lovenox 40 mg subQ daily) Hospitalist MIPS Advance Care Plan I have confirmed that the patient's Advanced Care Plan is present, code status is documented, or surrogate decision maker is listed in patient medical record.: Yes Medication Reconciliation I have utilized all available resources to obtain, update and review the patients current medications (includes all prescriptions, OTC, herbals, cannabis, and nutritional supplements).: Yes
[2024-04-06] MEDS: INSULIN GLARGINE (*BKC) 100 UNITS/ML 20 UNITS SUB-Q (20:24)
[2024-04-06 21:19] LABS: Glucose Point of Care 324 mg/dl (65-105)
[2024-04-07] VITALS (14 sets, daily range): BP systolic 133–160; BP diastolic 64–82; PULSE 70–83; RESP 17–18; TEMP 36.4–36.9; O2SAT 90–95
--- NOTE | 2024-04-07 | ECHO_ITS ---
Patient Info Name: Natalie Romero Age: 49 years : 1975 Gender: Female Ht: 63 in Wt: 150 lbs BSA: 1.76 m2 HR: 78 bpm BP: 133 / 75 mmHg Heart Rhythm: Sinus Rhythm Technical Quality: Fair Exam Date: 04/07/2024 3:55 PM Exam Location: Echo Lab Patient Status: Inpatient Admit Date: 03/31/2024 Staff Ordering Physician: Torsten Kruger MD (yo/ana lilia) [employer] Tile Floor Layer: Letha Jackson RDCS Attending Provider: Veronica Longo DO Referring Physician: Slick ISRAEL; Exam Type: CA echo dop color flow w con Study Info Indications - bacteremia Complete two-dimensional, color flow and Doppler transthoracic echocardiogram is performed with contrast to opacify the left ventricle and to improve the deliniation of the left ventricle endocardial borders. Contrast/Agitated Saline Contrast/Ag. Saline: Definity Amount: 2.00 ml Administered By: Letha Jackson RDCS Existing IV Access: Yes IV Access Condition: patent with no signs of infiltration Summary 1. There is normal biventricular size and systolic function. 2. There is no significant valvular disease. 3. Cannot rule out atrial septal defect in this study. 4. There is no definitive evidence of endocarditis in this study. Left Ventricle The left ventricle is normal in size and systolic function. The left ventricular ejection fraction is visually estimated to be 60-65%. There is no regional wall motion abnormalities in this study. Right Ventricle The right ventricle is normal in size and systolic function. Left Atria The left atrium is normal in size. Right Atria The right atrium is normal in size. Atrial Septum Cannot rule out a atrial septal defect in this study. Aortic Valve The aortic valve is trileaflet and opens well. There is no aortic regurgitation. Pulmonic Valve The pulmonic valve is grossly normal. There is no color Doppler evidence of pulmonic valve regurgitation. Mitral Valve The mitral valve is normal. There is trace mitral regurgitation. Tricuspid Valve The tricuspid valve is normal. There is trace tricuspid regurgitation. Pericardium/Pleural Pericardium is normal in appearance with no evidence for significant pericardial effusion. Inferior Vena Cava Normal inferior vena cava with >50% collapse upon inspiration consistent with normal right atrial pressure, 3 mmHg. Normal inferior vena cava with >50% collapse upon inspiration consistent with normal right atrial pressure, 3 mmHg. Aorta The aortic root at the level of sinus of Valsalva measures 2.6 cm in diameter. Left Ventricular Outflow Tract Name Value Normal LVOT 2D LVOT Diameter 2.02 cm LVOT Doppler LVOT Peak Gradient 6 mmHg LVOT Mean Gradient 3 mmHg LVOT VTI 22.44 cm LVOT VTI/AV VTI Ratio 0.73 LVOT Stroke Volume 72.11 ml LVOT CO 5.49 l/min LVOT CI 3.13 L/min/m2 Pulmonic Valve Name Value Normal RVOT Doppler RVOT Peak Gradient 4 mmHg PV Doppler PV Peak Gradient 5 mmHg Mitral Valve Name Value Normal MV Doppler MV Decel Taney 470.42 cm/s2 MV PHT 0 s MV Area (PHT) 3.66 cm2 4.00-5.00 MV Diastolic Function MV E Peak Velocity 97.40 cm/s MV A Peak Velocity 72.34 cm/s MV E/A 1.35 MV Decel Time 0 s MV Annular TDI MV E/e' (Septal) 11.20 <=8.00 MV E/e' (Lateral) 10.43 <=8.00 MV E/e' (Average) 10.81 Tricuspid Valve Name Value Normal TV Regurgitation Doppler TR Peak Velocity 159.91 cm/s TR Peak Gradient 10 mmHg Estimated PAP/RSVP RA Pressure 3 mmHg <=5 PA Systolic Pressure 13 mmHg <36 RV Systolic Pressure 13 mmHg <36 Aorta Name Value Normal Ascending Aorta Ao Root Diameter (MM) 2.70 cm Ao Root Diam Index (MM) 1.54 cm/m2 Aortic Valve Name Value Normal AV Doppler AV Peak Velocity 162.46 cm/s AV Peak Gradient 11 mmHg AV Mean Gradient 5 mmHg AV VTI 30.94 cm AV Area (Cont Eq VTI) 2.33 cm2 >=3.00 AV Area (Cont Eq Matthias) 2.37 cm2 AV Regurgitation 2D LVOT Area 3.21 cm2 Ventricles Name Value Normal LV Dimensions 2D/MM IVS Diastolic Thickness (2D) 1.21 cm 0.60-1.00 LVID Diastole (2D) 5.23 cm 3.80-5.20 LVIW Diastolic Thickness (2D) 1.03 cm 0.60-0.90 LVID Systole (2D) 3.43 cm 2.20-3.50 LVOT Diameter 2.02 cm LV Mass (2D Cubed) 228.99 g 67.00-162.00 LV Mass Index (2D Cubed) 0.01 g/cm2 0.00-0.01 Relative Wall Thickness (2D) 0.39 LV Fractional Shortening/Ejection Fraction 2D/MM LV Fractional Shortening (2D) 34 % 27-45 LV EF (2D Teicholz) 63 % 54-74 LV Diastolic Volume (4C MOD) 93.68 ml LV EF (4C MOD) 70 % LV Diastolic Volume (2C MOD) 68.55 ml LV EF (2C MOD) 72 % LV Diastolic Volume (BP MOD) 83.05 ml 46.00-106.00 LV Diastolic Volume Index (BP MOD) 0.05 l/m2 0.03-0.06 LV Systolic Volume (BP MOD) 23.67 ml 14.00-42.00 LV Systolic Volume Index (BP MOD) 0.01 l/m2 0.01-0.02 LV EF (BP MOD) 71 % 54-74 LV Diastolic Length (4C) 7.57 cm LV Systolic Length (4C) 5.97 cm LV Stroke Volume (4C MOD) 65.43 ml Atria Name Value Normal LA Dimensions LA Dimension (MM) 3.95 cm 2.70-3.80 LA Volume (4C A-L) 41.90 ml LA Volume (BP A-L) 45.73 ml RA Dimensions RA Area (4C) 14.50 cm2 <=18.00 Report Signatures
[2024-04-07 02:35] LABS: Estimated CRCL calculation 131 ml/min; Estimated Glomerular Filt Rate > 60
[2024-04-07 02:41] LABS: Vancomycin Trough 5.5 ug/mL (10.0-20.0)
[2024-04-07] MEDS: IPRATROPIUM 0.5 MG/ALBUTEROL SULFATE 2.5 MG AMPUL.NEB 3 ML INHALATION ×4 (02:52→20:45)
[2024-04-07] MEDS: VANCOMYCIN 1,500 MG/NS 500 ML 1,500 MG/500 ML BAG 250 MG IVPB ×2 (03:42→11:34)
[2024-04-07] MEDS: HYDROcodone/acetaminophen (*CRX) 10-325 MG TABLET 1 TAB PO ×3 (05:52→20:04)
[2024-04-07] MEDS: CEFEPIME 2 GM/NS 50 ML 2 GM/50 ML BAG IVPB ×2 (05:52→13:42)
[2024-04-07] MEDS: FLUTICASONE/SALMETEROL 45-21 MCG INHALER 1 PUFF 2 PUFF INHALATION ×2 (08:15→20:45)
[2024-04-07 08:55] LABS: Glucose Point of Care 115 mg/dl (65-105)
[2024-04-07] MEDS: ENOXAPARIN 40 MG/0.4 ML SYRINGE SUB-Q (09:01)
[2024-04-07] MEDS: predniSONE 20 MG TABLET 40 MG PO (09:01)
--- NOTE | 2024-04-07 10:26 | P.CONCA_ITS ---
Assessment and Plan Assessment and plan (1) Influenza A with pneumonia: Code(s): J09.X1 - Influenza due to identified novel influenza A virus with pneumonia Status: Acute (2) Bacteremia: Code(s): R78.81 - Bacteremia Status: Acute Plan 1. MRSA bacteremia 2. Influenza A complicated by pneumonia 3. Acute hypoxic respiratory failure 2/2 influenza pneumonia 4. COPD exacerbation PLAN: -Patient already ate today. Therefore, will plan for [facility] tomorrow. NPO at midnight order placed. -In the meantime, will obtain TTE today. History of Present Illness History of Present Illness Consult date/time: 04/07/24 10:26 Requesting physician: Ant Beard MD Consult reason: Other (Bacteremia ) Reason For Visit: Flu, Resp failure Narrative: We are consulted for [facility]. Natalie is a 49 year old female with no prior cardiac history who is admitted with Influenza A complicated by pneumonia. Blood culture from 04/02 showed MRSA. Given MRSA bacteremia, [facility] has been requested. Patient currently requiring supplemental oxygen due to pneumonia. Feels okay. Review of Systems 2 Review of Systems: All systems reviewed & are unremarkable except as noted in HPI and below (HPI) PMFSH Past Medical History Medical History Primary stress urinary incontinence Type 2 diabetes mellitus Tobacco abuse disorder Surgical History Surgical History No history of previous surgery Family History Family History Mother Lung cancer Father Early onset Alzheimer dementia, Onset Age: 50 Sibling Sudden cardiac , Onset Age: 35 Social History Social History Social History: The patient lives at home with her daughter and granddaughter. She works in an elementary school cafeteria. She smoked 2 packs of cigarettes per day since she was a teenager. She reports that her last cigarette was on March 27 2024. She rarely drinks alcohol only in small amounts. Code status: Full code Surrogate decision maker: Marian (daughter) Smoking packs per day: 2 Smoking cigarettes per day: 40.0 Smoking status: Heavy tobacco smoker Alcohol intake: never Substance use: never Substance use type: does not use Do You Feel Safe in your Home?: Yes Lack of Transportation: No Lack of Food: Never True Current Housing: I Do Not Have Housing Concerned About Future Housing: YES Difficulty Paying Gas/Electric Bills: No Difficulty Paying for Meds: No Currently Unemployed: YES Education: Decline to Answer Difficulty w/ Childcare or Family Care: No Spiritual care concerns: No Meds Home Medications and Allergies Home Medications ?Medication ?Instructions ?Recorded ?Confirmed ?Type No Home Medications 04/01/24 04/01/24 History Allergies Allergy/AdvReac Type Severity Reaction Status Date / Time Penicillins Allergy Unknown Anaphylactic Verified 05/03/18 14:41 Shock Vital Signs Vital Signs - 24 hr 04/06/24 14:00 04/06/24 14:06 04/06/24 14:16 Temperature 36.4 C Pulse Rate 90 86 90 Respiratory Rate 24 H 20 20 Blood Pressure 147/79 H Pulse Oximetry 93 Oxygen Delivery Oxygen Flow Rate 04/06/24 20:00 04/06/24 20:28 04/06/24 21:30 Temperature 36.8 C Pulse Rate 73 Respiratory Rate 17 Blood Pressure 153/80 H Pulse Oximetry 93 94 95 Oxygen Delivery Nasal Cannula Nasal Cannula Oxygen Flow Rate 3 3 04/06/24 21:30 04/06/24 21:36 04/07/24 02:52 Temperature Pulse Rate 75 81 77 Respiratory Rate 18 18 18 Blood Pressure Pulse Oximetry Oxygen Delivery Oxygen Flow Rate 04/07/24 02:58 04/07/24 05:11 Temperature 36.7 C Pulse Rate 70 77 Respiratory Rate 18 18 Blood Pressure 133/76 Pulse Oximetry 95 Oxygen Delivery Oxygen Flow Rate Exam 2 Const: General: no acute distress HENMT: Mouth: Yes moist mucous membranes Eyes: General: appearance normal, both eyes and all related structures S clera: sclerae normal Resp: Effort & Inspection: normal respiratory effort Cardio: Rate: regular rate Rhythm: regular rhythm Heart sounds: no murmurs Skin: General skin exam: normal color Neuro: Speech: normal speech Psych: Mental Status: mental status grossly normal Affect: normal affect Results Labs and Meds 04/06/24 07:05 04/07/24 02:19 Lab results: Comprehensive Metabolic Panel 04/07/24 Range/Units 02:19 Creatinine 0.38 L (0.7-1.0) mg/dL Intake and Output 04/06/24 04/07/24 04/07/24 23:59 07:59 15:59 Intake Total 1400 700 236 Balance 1400 700 236 Intake: IV 50 550 Cefepime 2 gm/Ns 50 ml 2 gm In 50 50 50 ml @ 100 mls/hr IVPB Q8HR [facility] Rx#:[id number] Vancomycin 1,500 mg/Ns 500 ml 1 500 ,500 mg In 500 ml @ 250 mls/hr IVPB Q8H [facility] Rx#:[id number] Oral 1350 150 236 Other: # Unmeasured Voids 4 2
--- NOTE | 2024-04-07 10:42 | PCNWS ---
Weekly nutritional screen. Patient is tolerating current Diabetic diet with adequate intake, 100%. No weight loss reported. No nutritional needs at this time.
[2024-04-07 11:38] LABS: Hematocrit 36.5 % (37.0-47.0); Mean Corpuscular HGB Conc 32.9 g/dl (32-36); Mean Corpuscular Hemoglobin 30.5 pg (26-34); Mean Corpuscular Volume 92.9 fl (80-100); Mean Platelet Volume 10.5 fl (7.4-10.4); Platelet Count Result 362 k/mm3 (150-375); Red Blood Count 3.93 M/mm3 (4.2-5.4); Red Cell Distribution Width 12.3 % (11.5-14.5); White Blood Count 9.2 K/mm3 (4.5-10.0)
[2024-04-07 11:48] LABS: Alanine Aminotransferase 27 U/L (6-35); Alkaline Phosphatase 54 U/L (38-126); Anion Gap 6 mmol/L (4-12); Aspartate Amino Transferase 26 U/L (14-36); Bilirubin,Total 1.2 mg/dL (0.2-1.3); Blood Urea Nitrogen 15 mg/dL (7-17); Calcium 8.3 mg/dL (8.4-10.2); Carbon Dioxide 30 mmol/L (22-30); Chloride 101 mmol/L (98-107); Estimated CRCL calculation 128 ml/min; Estimated Glomerular Filt Rate > 60; Glucose 239 mg/dL (65-110); Potassium 3.3 mmol/L (3.4-5.0); Sodium 137 mmol/L (137-145)
[2024-04-07 12:05] LABS: Glucose Point of Care 244 mg/dl (65-105)
[2024-04-07] MEDS: INSULIN ASPART (*BKC) 100 UNITS/ML SUB-Q ×3 (12:32→21:03)
--- NOTE | 2024-04-07 16:04 | P.PNIM_ITS ---
Progress Note: A&P Assessment and Plan (1) Sepsis: Qualifiers: Sepsis type: sepsis due to unspecified organism Sepsis acute organ dysfunction status: with acute organ dysfunction Severe sepsis acute organ dysfunction type: acute respiratory failure Acute respiratory failure type: with hypoxia Severe sepsis shock status: without septic shock Qualified Code(s): A41.9 - Sepsis, unspecified organism; R65.20 - Severe sepsis without septic shock; J96.01 - Acute respiratory failure with hypoxia Code(s): A41.9 - Sepsis, unspecified organism Status: Acute (2) Respiratory failure: Qualifiers: Chronicity: acute Respiratory failure complication: hypoxia Qualified Code(s): J96.01 - Acute respiratory failure with hypoxia Code(s): J96.90 - Respiratory failure, unspecified, unspecified whether with hypoxia or hypercapnia Status: Acute (3) Influenza A with pneumonia: Code(s): J09.X1 - Influenza due to identified novel influenza A virus with pneumonia Status: Acute (4) Type 2 diabetes mellitus with hyperglycemia: Qualifiers: Diabetes mellitus skilled nursing insulin use: without skilled nursing use Qualified Code(s): E11.65 - Type 2 diabetes mellitus with hyperglycemia Code(s): E11.65 - Type 2 diabetes mellitus with hyperglycemia Status: Acute (5) Current smoker: Code(s): F17.200 - Nicotine dependence, unspecified, uncomplicated Status: Acute (6) Hypokalemia: Code(s): E87.6 - Hypokalemia Status: Acute Plan MRSA bacteremia Likely from pneumonia however rule out Endocarditis [facility] ordered repeat blood culture Continue CEfepime and Vanc day 1 Acute hypoxic respiratory failure From pneumonia, flu and bronchospasm. Continue antibiotics as below , bronchodilator and Tamiflu. 4 liters oxygen NC Sepsis , resolved From pneumonia Vital signs within normal limits. Continue antibiotics as below and follow-up cultures. Patient is having adequate oral intake, discontinue IVF. Pneumonia Chest x-ray showed a right upper middle lobe pneumonia. Follow-up cultures. MRSA positive patient failed Levaquin and Doxy as pneumonia advanced per repeat CXR Started on Cefepime and Vanc today (04/05/24) Monitor Influenza A Flu A positive Continue Tamiflu. Bronchospasm likely COPD exacerbation patient is a smoker, undiagnosed. Wheezing has resolved Continue Duoneb treatment, prednisone and Symbicort Monitor for wheezing. Tobacco use Patient counseled about cessation. Type 2 diabetes Sliding scale insulin with Accu-Cheks. DVT prophylaxis subQ Lovenox Pending clinical course Subjective Date/time seen: 04/07/24 16:04 Interval history: Replace potassium 40meq. Pending Cardiology evaluation for [facility] Review of Systems Review of Systems: 12 systems were reviewed with pertinent positives and negatives per HPI. Except as documented in the HPI, all other systems were reviewed and are negative. Exam Narrative: Weight 68.3 kg BMI 26.7 Const: Other: Acutely ill-appearing, appears older than stated age, well-developed well- nourished HENMT: Other: Head is normocephalic atraumatic, mucous membranes are tacky, no oral pharyngeal erythema Eyes: Other: Pupils are equal and reactive, no scleral icterus, no conjunctival pallor Neck: Other: No JVD, trachea midline Resp: Other: End-expiratory wheezing bilateral lung cullen, coarse crackles right lung, marked tachypnea Cardio: Other: Sinus tachycardia, 2+ pulses bilateral radial and pedal, no murmur GI: Other: Soft, nontender, nondistended, positive bowel sounds Skin: Other: Hot to touch, mottling of the lower extremities, 2nd cap refill Neuro: Other: Alert oriented, speech is clear, no facial asymmetry, moves all extremities equally Extrem: Other: No clubbing, no cyanosis Psych: Other: Anxious, restless, judgment insight intact Objective Data Vital Signs Vital Signs: Vital Signs - 24 hr 04/06/24 20:00 04/06/24 20:28 04/06/24 21:30 Temperature 98.2 F Pulse Rate 73 Respiratory Rate 17 Blood Pressure 153/80 H Pulse Oximetry 93 94 95 Oxygen Delivery Nasal Cannula Nasal Cannula Oxygen Flow Rate 3 3 04/06/24 21:30 04/06/24 21:36 04/07/24 02:52 Temperature Pulse Rate 75 81 77 Respiratory Rate 18 18 18 Blood Pressure Pulse Oximetry Oxygen Delivery Oxygen Flow Rate 04/07/24 02:58 04/07/24 05:11 04/07/24 08:00 Temperature 98.0 F Pulse Rate 70 77 Respiratory Rate 18 18 Blood Pressure 133/76 Pulse Oximetry 95 90 Oxygen Delivery Nasal Cannula Oxygen Flow Rate 3 04/07/24 08:15 04/07/24 08:15 04/07/24 08:30 Temperature Pulse Rate 76 76 78 Respiratory Rate 18 18 18 Blood Pressure Pulse Oximetry 90 Oxygen Delivery Nasal Cannula Oxygen Flow Rate 3 04/07/24 13:10 04/07/24 13:20 04/07/24 14:00 Temperature 97.5 F L Pulse Rate 74 77 83 Respiratory Rate 18 18 18 Blood Pressure 140/64 Pulse Oximetry 93 Oxygen Delivery Oxygen Flow Rate Intake/Output Intake/Output: Intake & Output 04/04/24 04/05/24 04/06/24 04/07/24 23:59 23:59 23:59 23:59 Intake Total 2100 1680 1870 1176 Balance 2100 1680 1870 1176 Meds/Results Medications: Active Medications Generic Name Dose Route Start Last Admin Trade Name Freq PRN Reason Stop Dose Admin Acetaminophen 650 mg 03/31/24 22:35 04/03/24 05:39 Acetaminophen 325 Mg Tablet PO 650 mg Q4H PRN Administration Mild Pain (1-3) or Fever Hydrocodone Bitart/Acetaminophen 1 tab 04/02/24 17:06 04/07/24 11:40 Hydrocodone/Acetaminophen (*Crx) 10-325 Mg Tablet PO 1 tab Q4H PRN Administration Pain Rated 7-10 Albuterol/Ipratropium 3 ml 04/01/24 02:00 04/07/24 13:10 Ipratropium 0.5 Mg/Albuterol Sulfate 2.5 Mg Ampul.Neb 3 Ml INHALATION 3 ml Q6HRT CAMERON Administration Calcium Carbonate 200 mg 03/31/24 22:35 Calcium Carbonate (Tums) 500 Mg (200 Mg Elemental) PO Q6H PRN Indigestion Dextrose 12.5 gm 03/31/24 22:31 Dextrose 50% 25 Gm/50 Ml Syringe IV PUSH PRN PRN Hypoglycemia Protocol Enoxaparin Sodium 40 mg 04/02/24 09:00 04/07/24 09:01 Enoxaparin 40 Mg/0.4 Ml Syringe SUB-Q 40 mg DAILY CAM[facility]ON Administration Glucagon 1 mg 03/31/24 22:31 Glucagon For Inj 1 Mg Vial IM PRN PRN Hypoglycemia Protocol Glucose 15 gm 03/31/24 22:31 Glucose Oral Gel 15 Gm Of Glucse In 37.5 Gm Tube PO PRN PRN Hypoglycemia Protocol Dextrose 1,000 mls @ 100 mls/hr 03/31/24 22:31 Dextrose 5% 1,000 Ml IVPB PRN PRN Hypoglycemia Protocol Vancomycin HCl 1,500 mg in 500 mls @ 250 mls/hr 04/07/24 04:00 04/07/24 11:34 Vancomycin 1,500 Mg/Ns 500 Ml IVPB 250 mls/hr Q8H [facility] Administration Ibuprofen 600 mg 04/01/24 01:25 04/02/24 01:26 Ibuprofen 600 Mg Tablet PO 600 mg Q6H PRN Administration pain 4-6 or fever Insulin Aspart 3 - 6 units 04/01/24 08:00 04/07/24 12:32 Insulin Aspart (*Bkc) 100 Units/Ml SUB-Q 3 units TIDWM [facility] Administration Protocol Insulin Aspart 1 - 3 units 04/01/24 21:00 04/06/24 20:26 Insulin Aspart (*Bkc) 100 Units/Ml SUB-Q 2 units HS [facility] Administration Protocol Insulin Glargine 20 units 04/02/24 21:00 04/06/24 20:24 Insulin Glargine (*Bkc) 100 Units/Ml SUB-Q 20 units HS [facility] Administration Levofloxacin 750 mg 04/07/24 21:00 Levofloxacin 750 Mg Tablet PO 04/11/24 21:01 QHS [facility] Morphine Sulfate 2 mg 04/01/24 14:51 04/02/24 14:33 Morphine Sulfate (*Crx) 2 Mg/Ml Inj IV PUSH 2 mg Q4H PRN Administration Breakthrough Pain Ondansetron HCl 4 mg 03/31/24 22:38 Ondansetron Inj 4 Mg/2 Ml Vial IV PUSH Q4H PRN Nausea And Vomiting Perflutren Lipid Microsphere 0 ml 04/07/24 10:25 Perflutren Lipid Microspheres 1.5 Ml Vial Diluted To 10 Ml Total Volume IV PUSH 04/10/24 10:25 ONCE PRN adequate visualization Protocol Prednisone 40 mg 04/04/24 12:30 04/07/24 09:01 Prednisone 20 Mg Tablet PO 40 mg DAILY@0800 [facility] Administration Fluticasone/Salmeterol 2 puff 04/01/24 20:00 04/07/24 08:15 Fluticasone/Salmeterol 45-21 Mcg Inhaler 1 Puff INHALATION 2 puff Q12HRT [facility] Administration Radiology Results: ITS Impressions Chest X-Ray 03/31/24 20:18 IMPRESSION: Right upper and middle lobe pneumonia, as detailed above. Chest CT 04/04/24 14:55 IMPRESSION: Progression of multifocal pneumonia, as detailed above. Labs Labs: Laboratory Results - last 24 hr 04/06/24 04/06/24 04/07/24 16:49 20:24 02:19 WBC RBC Hgb Hct MCV MCH MCHC RDW Plt Count MPV Sodium Potassium Chloride Carbon Dioxide Anion Gap BUN Creatinine 0.38 L Estim Creat Clear Calc 131 Estimated GFR > 60 Glucose POC Capillary Glucose 248 H 324 H Calcium Total Bilirubin AST ALT Alkaline Phosphatase Total Protein Albumin Vancomycin Trough 5.5 L 04/07/24 04/07/24 04/07/24 08:53 10:46 11:41 WBC 9.2 RBC 3.93 L Hgb 12.0 Hct 36.5 L MCV 92.9 MCH 30.5 MCHC 32.9 RDW 12.3 Plt Count 362 MPV 10.5 H Sodium 137 Potassium 3.3 L Chloride 101 Carbon Dioxide 30 Anion Gap 6 BUN 15 Creatinine 0.39 L Estim Creat Clear Calc 128 Estimated GFR > 60 Glucose 239 H POC Capillary Glucose 115 H 244 H Calcium 8.3 L Total Bilirubin 1.2 AST 26 ALT 27 Alkaline Phosphatase 54 Total Protein 6.0 L Albumin 3.0 L Vancomycin Trough Quality VTE Prophylaxis VTE prophylaxis: pharmacologic ordered (Lovenox 40 mg subQ daily) Hospitalist MIPS Advance Care Plan I have confirmed that the patient's Advanced Care Plan is present, code status is documented, or surrogate decision maker is listed in patient medical record.: Yes Medication Reconciliation I have utilized all available resources to obtain, update and review the patients current medications (includes all prescriptions, OTC, herbals, cannabis, and nutritional supplements).: Yes
[2024-04-07] MEDS: PERFLUTREN LIPID MICROSPHERES 1.5 ML VIAL DILUTED TO 10 ML TOTAL VOLUME IV PUSH (16:25)
--- NOTE | 2024-04-07 17:02 | IVDEFINITY ---
Prior to administration of IV Definity the patient was educated on the risks and benefits of the imaging enhancing agent including potential adverse side effects. The patient verbalized understanding. Allergies were verified. No exclusion criteria were identified and at least one of the following inclusion criteria were met: 1) physician request, 2) patient technically difficult to image (per the [place] [employer] guidelines of two or more segments not discernable within the apical view), or 3) questionable left ventricular function. ?
[2024-04-07 17:11] LABS: Glucose Point of Care 234 mg/dl (65-105)
[2024-04-07] MEDS: POTASSIUM CHLORIDE 20 MEQ ER TABLET 40 MEQ PO (17:18)
[2024-04-07] MEDS: VANCOMYCIN 1,500 MG/NS 500 ML 1,500 MG/500 ML BAG 125 MG IVPB (20:07)
[2024-04-07] MEDS: INSULIN GLARGINE (*BKC) 100 UNITS/ML 20 UNITS SUB-Q (21:03)
[2024-04-07] MEDS: levoFLOXacin 750 MG TABLET PO (21:03)
[2024-04-07 21:07] LABS: Glucose Point of Care 212 mg/dl (65-105)
[2024-04-08] VITALS (15 sets, daily range): BP systolic 124–140; BP diastolic 61–78; PULSE 66–107; RESP 17–20; TEMP 36.7–37; O2SAT 92–96
[2024-04-08] MEDS: IPRATROPIUM 0.5 MG/ALBUTEROL SULFATE 2.5 MG AMPUL.NEB 3 ML INHALATION ×3 (01:49→21:34)
[2024-04-08 03:33] LABS: Hematocrit 33.9 % (37.0-47.0); Hemoglobin 11.6 g/dL (12.0-15.0); Mean Corpuscular HGB Conc 34.2 g/dl (32-36); Mean Corpuscular Hemoglobin 31.4 pg (26-34); Mean Corpuscular Volume 91.9 fl (80-100); Mean Platelet Volume 9.8 fl (7.4-10.4); Platelet Count Result 332 k/mm3 (150-375); Red Blood Count 3.69 M/mm3 (4.2-5.4); Red Cell Distribution Width 12.1 % (11.5-14.5); White Blood Count 9.9 K/mm3 (4.5-10.0)
[2024-04-08 03:42] LABS: Alanine Aminotransferase 26 U/L (6-35); Albumin Level 2.9 g/dL (3.5-5.1); Alkaline Phosphatase 41 U/L (38-126); Anion Gap 7 mmol/L (4-12); Aspartate Amino Transferase 19 U/L (14-36); Bilirubin,Total 0.7 mg/dL (0.2-1.3); Blood Urea Nitrogen 16 mg/dL (7-17); Calcium 8.1 mg/dL (8.4-10.2); Carbon Dioxide 26 mmol/L (22-30); Chloride 105 mmol/L (98-107); Estimated CRCL calculation 148 ml/min; Estimated Glomerular Filt Rate > 60; Glucose 158 mg/dL (65-110); Potassium 3.4 mmol/L (3.4-5.0); Sodium 138 mmol/L (137-145)
[2024-04-08 03:53] LABS: Vancomycin Trough 12.5 ug/mL (10.0-20.0)
[2024-04-08] MEDS: VANCOMYCIN 1,500 MG/NS 500 ML 1,500 MG/500 ML BAG 150 MG IVPB ×3 (04:34→20:18)
[2024-04-08] MEDS: HYDROcodone/acetaminophen (*CRX) 10-325 MG TABLET 1 TAB PO ×3 (04:38→19:46)
[2024-04-08] MEDS: predniSONE 20 MG TABLET 40 MG PO (08:04)
[2024-04-08] MEDS: ENOXAPARIN 40 MG/0.4 ML SYRINGE SUB-Q (08:04)
[2024-04-08 09:21] LABS: Glucose Point of Care 101 mg/dl (65-105)
[2024-04-08 12:03] LABS: Glucose Point of Care 133 mg/dl (65-105)
--- NOTE | 2024-04-08 13:23 | WPDANESEPP ---
Anes - Eval Pre Procedure Procedure: Operation Date: 04/08/24 15:30 Proposed Procedures p Trans Esophageal Echo - Reginaldo Hayes MD Date/Time: 04/08/24 13:23 Pre Op Diagnosis: Flu, Resp failure Patient Data Age: 49 Gender: F Height: 1.6 m Weight: 68.3 kg Last Vital Signs Temp 98.0 F 04/08/24 05:22 Pulse 66 04/08/24 05:22 Resp 18 04/08/24 05:22 BP 140/61 04/08/24 05:22 Pulse Ox 96 04/08/24 08:00 O2 Del Method Nasal Cannula 04/08/24 08:00 O2 Flow Rate 3 04/08/24 08:00 FiO2 32 04/05/24 20:15 Allergies Allergy/AdvReac Type Severity Reaction Status Date / Time Penicillins Allergy Unknown Anaphylactic Verified 05/03/18 14:41 Shock Home Medications ?Medication ?Instructions ?Recorded ?Confirmed ?Type No Home Medications 04/01/24 04/01/24 History Laboratory Tests 04/07/24 04/07/24 04/08/24 17:03 20:40 03:26 WBC 9.9 K/mm3 (4.5-10.0) RBC 3.69 L M/mm3 (4.2-5.4) Hgb 11.6 L g/dL (12.0-15.0) Hct 33.9 L % (37.0-47.0) MCV 91.9 fl (80-100) MCH 31.4 pg (26-34) MCHC 34.2 g/dl (32-36) RDW 12.1 % (11.5-14.5) Plt Count 332 k/mm3 (150-375) MPV 9.8 fl (7.4-10.4) Sodium 138 mmol/L (137-145) Potassium 3.4 mmol/L (3.4-5.0) Chloride 105 mmol/L (98-107) Carbon Dioxide 26 mmol/L (22-30) Anion Gap 7 mmol/L (4-12) BUN 16 mg/dL (7-17) Creatinine 0.33 L mg/dL (0.7-1.0) Estim Creat Clear Calc 148 ml/min Estimated GFR > 60 (59 - ) Glucose 158 H mg/dL (65-110) POC Capillary Glucose 234 H mg/dl 212 H mg/dl (65-105) (65-105) Calcium 8.1 L mg/dL (8.4-10.2) Total Bilirubin 0.7 mg/dL (0.2-1.3) AST 19 U/L (14-36) ALT 26 U/L (6-35) Alkaline Phosphatase 41 U/L (38-126) Total Protein 6.0 L g/dL (6.3-8.2) Albumin 2.9 L g/dL (3.5-5.1) Vancomycin Trough 12.5 ug/mL (10.0-20.0) 04/08/24 04/08/24 09:19 12:00 WBC RBC Hgb Hct MCV MCH MCHC RDW Plt Count MPV Sodium Potassium Chloride Carbon Dioxide Anion Gap BUN Creatinine Estim Creat Clear Calc Estimated GFR Glucose POC Capillary Glucose 101 mg/dl 133 H mg/dl (65-105) (65-105) Calcium Total Bilirubin AST ALT Alkaline Phosphatase Total Protein Albumin Vancomycin Trough Patient hx anesthesia problems: none Family hx anesthesia problems: none Results Review: All pre-operative results and documents have been reviewed as part of the pre-operative evaluation. [facility] Past Medical History Medical History Primary stress urinary incontinence Type 2 diabetes mellitus Tobacco abuse disorder Surgical History Surgical History No history of previous surgery Family History Family History Mother Lung cancer Father Early onset Alzheimer dementia, Onset Age: 50 Sibling Sudden cardiac , Onset Age: 35 Social History Social History Social History: The patient lives at home with her daughter and granddaughter. She works in an elementary school cafeteria. She smoked 2 packs of cigarettes per day since she was a teenager. She reports that her last cigarette was on March 27 2024. She rarely drinks alcohol only in small amounts. Code status: Full code Surrogate decision maker: Marian (daughter) Smoking packs per day: 2 Smoking cigarettes per day: 40.0 Smoking status: Heavy tobacco smoker Alcohol intake: never Substance use: never Substance use type: does not use Do You Feel Safe in your Home?: Yes Lack of Transportation: No Lack of Food: Never True Current Housing: I Do Not Have Housing Concerned About Future Housing: YES Difficulty Paying Gas/Electric Bills: No Difficulty Paying for Meds: No Currently Unemployed: YES Education: Decline to Answer Difficulty w/ Childcare or Family Care: No Spiritual care concerns: No Exam Day of Procedure 04/08/24 13:23
[2024-04-08] MEDS: FLUTICASONE/SALMETEROL 45-21 MCG INHALER 1 PUFF 2 PUFF INHALATION ×2 (13:57→21:35)
--- NOTE | 2024-04-08 14:14 | WPDHPUPDATE1 ---
History and Physical Update Update Date/Time: 04/08/24 10:30 History and Physical has been reviewed, including an updated exam of the patient. There are NO changes in the patient's condition. Risks, benefits, and alternatives have been discussed and questions answered. Patient agrees to proceed with procedure.
--- NOTE | 2024-04-08 14:23 | PM.IMPN ---
Progress Note: A&P Assessment and Plan (1) Sepsis: Qualifiers: Sepsis type: sepsis due to unspecified organism Sepsis acute organ dysfunction status: with acute organ dysfunction Severe sepsis acute organ dysfunction type: acute respiratory failure Acute respiratory failure type: with hypoxia Severe sepsis shock status: without septic shock Qualified Code(s): A41.9 - Sepsis, unspecified organism; R65.20 - Severe sepsis without septic shock; J96.01 - Acute respiratory failure with hypoxia Code(s): A41.9 - Sepsis, unspecified organism Status: Acute (2) Respiratory failure: Qualifiers: Chronicity: acute Respiratory failure complication: hypoxia Qualified Code(s): J96.01 - Acute respiratory failure with hypoxia Code(s): J96.90 - Respiratory failure, unspecified, unspecified whether with hypoxia or hypercapnia Status: Acute (3) Influenza A with pneumonia: Code(s): J09.X1 - Influenza due to identified novel influenza A virus with pneumonia Status: Acute (4) Type 2 diabetes mellitus with hyperglycemia: Qualifiers: Diabetes mellitus long-term insulin use: without termite control representative use Qualified Code(s): E11.65 - Type 2 diabetes mellitus with hyperglycemia Code(s): E11.65 - Type 2 diabetes mellitus with hyperglycemia Status: Acute (5) Current smoker: Code(s): F17.200 - Nicotine dependence, unspecified, uncomplicated Status: Acute (6) Hypokalemia: Code(s): E87.6 - Hypokalemia Status: Acute Plan MRSA bacteremia Likely from pneumonia however rule out Endocarditis [facility] ordered repeat blood culture Continue Vancomycin and Levo DC Cefepime Acute hypoxic respiratory failure From pneumonia, flu and bronchospasm. Continue antibiotics as below , bronchodilator and Tamiflu. 4 liters oxygen NC Sepsis , resolved From pneumonia Vital signs within normal limits. Continue antibiotics as below and follow-up cultures. Patient is having adequate oral intake, discontinue IVF. Pneumonia Chest x-ray showed a right upper middle lobe pneumonia. Follow-up cultures. MRSA positive patient failed Levaquin and Doxy as pneumonia advanced per repeat CXR Started on Cefepime and Vanc today (04/05/24) Monitor Influenza A Flu A positive Continue Tamiflu. Bronchospasm likely COPD exacerbation patient is a smoker, undiagnosed. Wheezing has resolved Continue Duoneb treatment, prednisone and Symbicort Monitor for wheezing. Tobacco use Patient counseled about cessation. Type 2 diabetes Sliding scale insulin with Accu-Cheks. DVT prophylaxis subQ Lovenox Pending clinical course Subjective Date/time seen: 04/08/24 14:23 Interval history: Patient will undergo [facility] today.No acute events. Review of Systems Review of Systems: 12 systems were reviewed with pertinent positives and negatives per HPI. Except as documented in the HPI, all other systems were reviewed and are negative. All systems reviewed & are unremarkable except as noted in HPI and below (HPI) Exam Narrative: Weight 68.3 kg BMI 26.7 Const: General: no acute distress Other: Acutely ill-appearing, appears older than stated age, well-developed well-nourished HENMT: Mouth: Yes moist mucous membranes Other: Head is normocephalic atraumatic, mucous membranes are tacky, no oral pharyngeal erythema Eyes: General: appearance normal, both eyes and all related structures Sclera: sclerae normal Other: Pupils are equal and reactive, no scleral icterus, no conjunctival pallor Neck: Other: No JVD, trachea midline Resp: Effort & Inspection: normal respiratory effort Other: End-expiratory wheezing bilateral lung cullen, coarse crackles right lung, marked tachypnea Cardio: Rate: regular rate Rhythm: regular rhythm Heart sounds: no murmurs Other: Sinus tachycardia, 2+ pulses bilateral radial and pedal, no murmur GI: Other: Soft, nontender, nondistended, positive bowel sounds Skin: General skin exam: normal color Other: Hot to touch, mottling of the lower extremities, 2nd cap refill Neuro: Speech: normal speech Other: Alert oriented, speech is clear, no facial asymmetry, moves all extremities equally Extrem: Other: No clubbing, no cyanosis Psych: Mental Status: mental status grossly normal Affect: normal affect Other: Anxious, restless, judgment insight intact Objective Data Vital Signs Vital Signs: Vital Signs - 24 hr 04/07/24 20:00 04/07/24 20:43 04/07/24 20:45 Temperature 98.5 F Pulse Rate 70 75 Respiratory Rate 17 18 Blood Pressure 160/82 H Pulse Oximetry 93 94 Oxygen Delivery Nasal Cannula Oxygen Flow Rate 3 04/07/24 21:04 04/07/24 21:05 04/08/24 01:50 Temperature Pulse Rate 75 82 75 Respiratory Rate 18 18 18 Blood Pressure Pulse Oximetry 93 Oxygen Delivery Nasal Cannula Oxygen Flow Rate 3 04/08/24 02:01 04/08/24 05:22 04/08/24 08:00 Temperature 98.0 F Pulse Rate 75 66 Respiratory Rate 18 18 Blood Pressure 140/61 Pulse Oximetry 96 96 Oxygen Delivery Nasal Cannula Oxygen Flow Rate 3 04/08/24 13:57 04/08/24 13:58 04/08/24 14:04 Temperature Pulse Rate 76 76 75 Respiratory Rate 18 18 18 Blood Pressure Pulse Oximetry 92 Oxygen Delivery Nasal Cannula Oxygen Flow Rate 3 Intake/Output Intake/Output: Intake & Output 04/05/24 04/06/24 04/07/24 04/08/24 23:59 23:59 23:59 23:59 Intake Total 1680 1870 2863 1000 Balance 1680 1870 2863 1000 Meds/Results Medications: Active Medications Generic Name Dose Route Start Last Admin Trade Name Freq PRN Reason Stop Dose Admin Acetaminophen 650 mg 03/31/24 22:35 04/03/24 05:39 Acetaminophen 325 Mg Tablet PO 650 mg Q4H PRN Administration Mild Pain (1-3) or Fever Hydrocodone Bitart/Acetaminophen 1 tab 04/02/24 17:06 04/08/24 13:12 Hydrocodone/Acetaminophen (*Crx) 10-325 Mg Tablet PO 1 tab Q4H PRN Administration Pain Rated 7-10 Albuterol/Ipratropium 3 ml 04/01/24 02:00 04/08/24 13:57 Ipratropium 0.5 Mg/Albuterol Sulfate 2.5 Mg Ampul.Neb 3 Ml INHALATION 3 ml Q6HRT [facility] Administration Calcium Carbonate 200 mg 03/31/24 22:35 Calcium Carbonate (Tums) 500 Mg (200 Mg Elemental) PO Q6H PRN Indigestion Dextrose 12.5 gm 03/31/24 22:31 Dextrose 50% 25 Gm/50 Ml Syringe IV PUSH PRN PRN Hypoglycemia Protocol Enoxaparin Sodium 40 mg 04/02/24 09:00 04/08/24 08:04 Enoxaparin 40 Mg/0.4 Ml Syringe SUB-Q 40 mg DAILY [facility] Administration Glucagon 1 mg 03/31/24 22:31 Glucagon For Inj 1 Mg Vial IM PRN PRN Hypoglycemia Protocol Glucose 15 gm 03/31/24 22:31 Glucose Oral Gel 15 Gm Of Glucse In 37.5 Gm Tube PO PRN PRN Hypoglycemia Protocol Dextrose 1,000 mls @ 100 mls/hr 03/31/24 22:31 Dextrose 5% 1,000 Ml IVPB PRN PRN Hypoglycemia Protocol Vancomycin HCl 1,500 mg in 500 mls @ 250 mls/hr 04/07/24 04:00 04/08/24 11:32 Vancomycin 1,500 Mg/Ns 500 Ml IVPB 150 mls/hr Q8H [facility] Administration Ibuprofen 600 mg 04/01/24 01:25 04/02/24 01:26 Ibuprofen 600 Mg Tablet PO 600 mg Q6H PRN Administration pain 4-6 or fever Insulin Aspart 3 - 6 units 04/01/24 08:00 04/08/24 12:17 Insulin Aspart (*Bkc) 100 Units/Ml SUB-Q Not Given TIDWM [facility] Protocol Insulin Aspart 1 - 3 units 04/01/24 21:00 04/07/24 21:03 Insulin Aspart (*Bkc) 100 Units/Ml SUB-Q 1 units HS [facility] Administration Protocol Insulin Glargine 20 units 04/02/24 21:00 04/07/24 21:03 Insulin Glargine (*Bkc) 100 Units/Ml SUB-Q 20 units HS [facility] Administration Levofloxacin 750 mg 04/07/24 21:00 04/07/24 21:03 Levofloxacin 750 Mg Tablet PO 04/11/24 21:01 750 mg QHS [facility] Administration Morphine Sulfate 2 mg 04/01/24 14:51 04/02/24 14:33 Morphine Sulfate (*Crx) 2 Mg/Ml Inj IV PUSH 2 mg Q4H PRN Administration Breakthrough Pain Ondansetron HCl 4 mg 03/31/24 22:38 Ondansetron Inj 4 Mg/2 Ml Vial IV PUSH Q4H PRN Nausea And Vomiting Prednisone 40 mg 04/04/24 12:30 04/08/24 08:04 Prednisone 20 Mg Tablet PO 40 mg DAILY@0800 [facility] Administration Fluticasone/Salmeterol 2 puff 04/01/24 20:00 04/08/24 13:57 Fluticasone/Salmeterol 45-21 Mcg Inhaler 1 Puff INHALATION 2 puff Q12HRT [facility] Administration Radiology Results: ITS Impressions Chest X-Ray 03/31/24 20:18 IMPRESSION: Right upper and middle lobe pneumonia, as detailed above. Chest CT 04/04/24 14:55 IMPRESSION: Progression of multifocal pneumonia, as detailed above. Labs Labs: Laboratory Results - last 24 hr 04/07/24 04/07/24 04/08/24 17:03 20:40 03:26 WBC 9.9 RBC 3.69 L Hgb 11.6 L Hct 33.9 L MCV 91.9 MCH 31.4 MCHC 34.2 RDW 12.1 Plt Count 332 MPV 9.8 Sodium 138 Potassium 3.4 Chloride 105 Carbon Dioxide 26 Anion Gap 7 BUN 16 Creatinine 0.33 L Estim Creat Clear Calc 148 Estimated GFR > 60 Glucose 158 H POC Capillary Glucose 234 H 212 H Calcium 8.1 L Total Bilirubin 0.7 AST 19 ALT 26 Alkaline Phosphatase 41 Total Protein 6.0 L Albumin 2.9 L Vancomycin Trough 12.5 04/08/24 04/08/24 09:19 12:00 WBC RBC Hgb Hct MCV MCH MCHC RDW Plt Count MPV Sodium Potassium Chloride Carbon Dioxide Anion Gap BUN Creatinine Estim Creat Clear Calc Estimated GFR Glucose POC Capillary Glucose 101 133 H Calcium Total Bilirubin AST ALT Alkaline Phosphatase Total Protein Albumin Vancomycin Trough Quality VTE Prophylaxis VTE prophylaxis: pharmacologic ordered (Lovenox 40 mg subQ daily) Hospitalist MIPS Advance Care Plan I have confirmed that the patient's Advanced Care Plan is present, code status is documented, or surrogate decision maker is listed in patient medical record.: Yes Medication Reconciliation I have utilized all available resources to obtain, update and review the patients current medications (includes all prescriptions, OTC, herbals, cannabis, and nutritional supplements).: Yes
--- NOTE | 2024-04-08 14:48 | P.PCNTEE_ITS ---
[facility] TransEsophageal Echocardiogram Date of procedure: 04/08/24 Procedure Type: Transesophageal echocardiogram Diagnosis: Bacteremia Indications: 49-year-old woman with MRSA bacteremia is here to rule out endocarditis with a transesophageal echocardiogram. Image Quality: Images were adequate. Patient was coughing throughout the procedure. Findings: Date Of Procedure: 04/08/2024 Brief History Of Present Illness: 49-year-old woman who is admitted with viral pneumonia also found to have MRSA bacteremia who presents for rule out of endocarditis with a transesophageal echocardiogram. Procedure In Detail: After verbal and written informed consent was obtained, the patient risks, benefits, and alternatives explained in detail. The patient agreed to proceed with the plan of care as outlined above.?The patient was evaluated at bedside in the [facility] procedure room.?The posterior oropharynx, neck, and jaw angle all within normal limits on examination. Lungs were clear to auscultation. See pre-sedation note for further details. The patient was then placed in the appropriate 30 to 45 degree angle supine position at a slight left lateral decubitus position.?Patient was monitored throughout the study with telemetry, oxygen saturation, end-tidal CO2 monitoring, blood pressure, heart rate, and respirations.?The posterior hypopharynx was then locally anesthetized using repeated administration of Hurricaine spray as well as gargled viscous lidocaine. After local anesthetic of the posterior hypopharynx was achieved and the oral bite block placed, sedation was administered by Anesthesia.?After confirmation of adequate sedation, the transesophageal echocardiogram probe was advanced through the oral bite block into the posterior hypopharynx and into the esophagus easily and without complication.?Multiple, multiplanar echocardiographic images were obtained in multiple standard re- projections.?Pulsed wave, continuous-wave, and color-flow Doppler were utilized in conjunction with this study.?At the conclusion of the study, the transesophageal echocardiogram probe was removed easily and without complication. The patient tolerated the procedure well without difficulty.?Patient was in sinus rhythm throughout the study. Moderate Sedation / Anesthesia Administration: Sedation provided by Anesthesia FINDINGS: LEFT VENTRICLE: The left ventricle is normal in size and systolic function. RIGHT VENTRICLE:? The right ventricle is normal in size and systolic function. LEFT ATRIUM: Normal size. RIGHT ATRIUM: Normal size. INTERATRIAL SEPTUM: Interatrial septum is anatomically normal without evidence of shunt with color-flow Doppler. MITRAL VALVE: Mitral valve is anatomically normal with preserved leaflet excursion and trace regurgitation. AORTIC VALVE: The aortic valve was an anatomically normal 3 leaflet structure with normal leaflet excursion and no regurgitation identified. TRICUSPID VALVE: The tricuspid valve is anatomically normal with normal leaflet excursion with trivial regurgitation.? PULMONIC VALVE: Pulmonic valve was grossly normal with trivial regurgitation identified.? LEFT ATRIAL APPENDAGE: No thrombus identified in the available views. PERICARDIUM: The pericardium was anatomically normal without significant pericardial effusion. ? AORTA: Mild atherosclerotic disease. Complications: None Conclusions: Normal biventricular size and systolic function. Normal atrial septum with no evidence of shunt by color Doppler. There is no definite evidence of endocarditis in this study. Patient can be discharged from cardiac perspective. Please call with additional questions.
--- NOTE | 2024-04-08 16:04 | PC.NURSE ---
Pt returned from the Cardiac Lab at 1545.
[2024-04-08 17:39] LABS: Glucose Point of Care 330 mg/dl (65-105)
[2024-04-08] MEDS: INSULIN ASPART (*BKC) 100 UNITS/ML SUB-Q ×2 (17:41→20:20)
[2024-04-08] MEDS: levoFLOXacin 750 MG TABLET PO (20:18)
[2024-04-08] MEDS: INSULIN GLARGINE (*BKC) 100 UNITS/ML 20 UNITS SUB-Q (20:20)
[2024-04-08 21:22] LABS: Glucose Point of Care 205 mg/dl (65-105)
[2024-04-09] VITALS (14 sets, daily range): BP systolic 139–152; BP diastolic 66–78; PULSE 65–100; RESP 16–24; TEMP 36.4; O2SAT 88–96
[2024-04-09] MEDS: HYDROcodone/acetaminophen (*CRX) 10-325 MG TABLET 1 TAB PO ×4 (00:47→21:06)
--- NOTE | 2024-04-09 03:35 | PCRCNOTE ---
Window of time for administration has passed. See next scheduled administration.
[2024-04-09 04:01] LABS: Vancomycin Trough 12.6 ug/mL (10.0-20.0)
[2024-04-09] MEDS: VANCOMYCIN 1,750 MG/NS 500 ML 1,750 MG/500 ML BAG 150 MG IVPB ×2 (04:34→12:47)
[2024-04-09 08:20] LABS: Hematocrit 35.5 % (37.0-47.0); Hemoglobin 11.9 g/dL (12.0-15.0); Mean Corpuscular HGB Conc 33.5 g/dl (32-36); Mean Corpuscular Hemoglobin 31.4 pg (26-34); Mean Corpuscular Volume 93.7 fl (80-100); Mean Platelet Volume 10.4 fl (7.4-10.4); Platelet Count Result 374 k/mm3 (150-375); Red Blood Count 3.79 M/mm3 (4.2-5.4); Red Cell Distribution Width 12.5 % (11.5-14.5); White Blood Count 11.5 K/mm3 (4.5-10.0)
[2024-04-09 08:28] LABS: Glucose Point of Care 174 mg/dl (65-105)
[2024-04-09 08:42] LABS: Alanine Aminotransferase 24 U/L (6-35); Albumin Level 2.8 g/dL (3.5-5.1); Alkaline Phosphatase 44 U/L (38-126); Anion Gap 7 mmol/L (4-12); Aspartate Amino Transferase 32 U/L (14-36); Bilirubin,Total 0.7 mg/dL (0.2-1.3); Blood Urea Nitrogen 15 mg/dL (7-17); Calcium 8.1 mg/dL (8.4-10.2); Carbon Dioxide 28 mmol/L (22-30); Chloride 104 mmol/L (98-107); Estimated CRCL calculation 137 ml/min; Estimated Glomerular Filt Rate > 60; Glucose 98 mg/dL (65-110); Potassium 3.3 mmol/L (3.4-5.0); Sodium 139 mmol/L (137-145)
[2024-04-09] MEDS: FLUTICASONE/SALMETEROL 45-21 MCG INHALER 1 PUFF 2 PUFF INHALATION ×2 (08:48→19:57)
[2024-04-09] MEDS: IPRATROPIUM 0.5 MG/ALBUTEROL SULFATE 2.5 MG AMPUL.NEB 3 ML INHALATION ×3 (08:48→19:53)
[2024-04-09] MEDS: ENOXAPARIN 40 MG/0.4 ML SYRINGE SUB-Q (09:05)
[2024-04-09] MEDS: predniSONE 20 MG TABLET 40 MG PO (09:05)
--- NOTE | 2024-04-09 11:13 | PM.IMPN ---
Progress Note: A&P Assessment and Plan (1) Sepsis: Qualifiers: Sepsis type: sepsis due to unspecified organism Sepsis acute organ dysfunction status: with acute organ dysfunction Severe sepsis acute organ dysfunction type: acute respiratory failure Acute respiratory failure type: with hypoxia Severe sepsis shock status: without septic shock Qualified Code(s): A41.9 - Sepsis, unspecified organism; R65.20 - Severe sepsis without septic shock; J96.01 - Acute respiratory failure with hypoxia Code(s): A41.9 - Sepsis, unspecified organism Status: Acute (2) Respiratory failure: Qualifiers: Chronicity: acute Respiratory failure complication: hypoxia Qualified Code(s): J96.01 - Acute respiratory failure with hypoxia Code(s): J96.90 - Respiratory failure, unspecified, unspecified whether with hypoxia or hypercapnia Status: Acute (3) Influenza A with pneumonia: Code(s): J09.X1 - Influenza due to identified novel influenza A virus with pneumonia Status: Acute (4) Type 2 diabetes mellitus with hyperglycemia: Qualifiers: Diabetes mellitus longterm insulin use: without longterm use Qualified Code(s): E11.65 - Type 2 diabetes mellitus with hyperglycemia Code(s): E11.65 - Type 2 diabetes mellitus with hyperglycemia Status: Acute (5) Current smoker: Code(s): F17.200 - Nicotine dependence, unspecified, uncomplicated Status: Acute (6) Hypokalemia: Code(s): E87.6 - Hypokalemia Status: Acute Plan MRSA bacteremia Likely from pneumonia however rule out Endocarditis [facility] ordered repeat blood culture Continue Vancomycin and Levo DC Cefepime Acute hypoxic respiratory failure From pneumonia, flu and bronchospasm. Continue antibiotics as below , bronchodilator and Tamiflu. 4 liters oxygen [place] Sepsis , resolved From pneumonia Vital signs within normal limits. Continue antibiotics as below and follow-up cultures. Patient is having adequate oral intake, discontinue IVF. Pneumonia Chest x-ray showed a right upper middle lobe pneumonia. Follow-up cultures. MRSA positive patient failed Levaquin and Doxy as pneumonia advanced per repeat CXR Continue Vancomycin and Levo Monitor Influenza A Flu A positive Continue Tamiflu. Bronchospasm likely COPD exacerbation patient is a smoker, undiagnosed. Wheezing has resolved Continue Duoneb treatment, prednisone and Symbicort Monitor for wheezing. Tobacco use Patient counseled about cessation. Type 2 diabetes Sliding scale insulin with Accu-Cheks. DVT prophylaxis subQ Lovenox Pending clinical course Subjective Date/time seen: 04/09/24 11:13 Interval history: Patient underwent [facility] no significant abnormalities. Repeat BC is negative. Patient will need 4 to 6 weeks of Vancomycin IV ab. Will discuss with ID pharmacist. Review of Systems Review of Systems: 12 systems were reviewed with pertinent positives and negatives per HPI. Except as documented in the HPI, all other systems were reviewed and are negative. All systems reviewed & are unremarkable except as noted in HPI and below (HPI) Exam Narrative: Weight 68.3 kg BMI 26.7 Const: General: no acute distress Other: Acutely ill-appearing, appears older than stated age, well-developed well-nourished HENMT: Mouth: Yes moist mucous membranes Other: Head is normocephalic atraumatic, mucous membranes are tacky, no oral pharyngeal erythema Eyes: General: appearance normal, both eyes and all related structures Sclera: sclerae normal Other: Pupils are equal and reactive, no scleral icterus, no conjunctival pallor Neck: Other: No JVD, trachea midline Resp: Effort & Inspection: normal respiratory effort Other: End-expiratory wheezing bilateral lung cullen, coarse crackles right lung, marked tachypnea Cardio: Rate: regular rate Rhythm: regular rhythm Heart sounds: no murmurs Other: Sinus tachycardia, 2+ pulses bilateral radial and pedal, no murmur GI: Other: Soft, nontender, nondistended, positive bowel sounds Skin: General skin exam: normal color Other: Hot to touch, mottling of the lower extremities, 2nd cap refill Neuro: Speech: normal speech Other: Alert oriented, speech is clear, no facial asymmetry, moves all extremities equally Extrem: Other: No clubbing, no cyanosis Psych: Mental Status: mental status grossly normal Affect: normal affect Other: Anxious, restless, judgment insight intact Objective Data Vital Signs Vital Signs: Vital Signs - 24 hr 04/08/24 13:57 04/08/24 13:58 04/08/24 14:04 Temperature Pulse Rate 76 76 75 Respiratory Rate 18 18 18 Blood Pressure Pulse Oximetry 92 Oxygen Delivery Nasal Cannula Oxygen Flow Rate 3 Fraction of Inspired Oxygen 04/08/24 14:55 04/08/24 15:05 04/08/24 15:17 Temperature Pulse Rate 97 85 80 Respiratory Rate 17 20 18 Blood Pressure 124/72 124/71 126/78 Pulse Oximetry 94 95 94 Oxygen Delivery Nasal Cannula Nasal Cannula Nasal Cannula Oxygen Flow Rate 3 3 3 Fraction of Inspired Oxygen 04/08/24 16:02 04/08/24 19:30 04/08/24 19:40 Temperature 98.4 F 98.6 F Pulse Rate 88 107 H Respiratory Rate 18 18 Blood Pressure 134/69 136/64 Pulse Oximetry 93 93 93 Oxygen Delivery Nasal Cannula Oxygen Flow Rate 3 Fraction of Inspired Oxygen 04/08/24 21:34 04/08/24 21:34 04/08/24 21:44 Temperature Pulse Rate 79 77 Respiratory Rate 18 18 Blood Pressure Pulse Oximetry 93 Oxygen Delivery Nasal Cannula Oxygen Flow Rate 3 Fraction of Inspired Oxygen 32 04/09/24 00:55 04/09/24 01:07 04/09/24 04:33 Temperature 97.6 F Pulse Rate 100 Respiratory Rate 16 Blood Pressure 139/70 Pulse Oximetry 94 93 95 Oxygen Delivery Nasal Cannula Nasal Cannula Oxygen Flow Rate 2 1 Fraction of Inspired Oxygen 04/09/24 08:51 04/09/24 08:53 04/09/24 08:53 Temperature Pulse Rate 75 Respiratory Rate 18 Blood Pressure Pulse Oximetry 88 L 90 Oxygen Delivery Room Air Nasal Cannula Oxygen Flow Rate 1 Fraction of Inspired Oxygen 04/09/24 09:02 Temperature Pulse Rate 76 Respiratory Rate 18 Blood Pressure Pulse Oximetry Oxygen Delivery Oxygen Flow Rate Fraction of Inspired Oxygen Intake/Output Intake/Output: Intake & Output 04/06/24 04/07/24 04/08/24 04/09/24 23:59 23:59 23:59 23:59 Intake Total 1870 2863 2240 740 Balance 1870 2863 2240 740 Meds/Results Medications: Active Medications Generic Name Dose Route Start Last Admin Trade Name Freq PRN Reason Stop Dose Admin Acetaminophen 650 mg 03/31/24 22:35 04/03/24 05:39 Acetaminophen 325 Mg Tablet PO 650 mg Q4H PRN Administration Mild Pain (1-3) or Fever Hydrocodone Bitart/Acetaminophen 1 tab 04/02/24 17:06 04/09/24 09:57 Hydrocodone/Acetaminophen (*Crx) 10-325 Mg Tablet PO 1 tab Q4H PRN Administration Pain Rated 7-10 Albuterol/Ipratropium 3 ml 04/01/24 02:00 04/09/24 08:48 Ipratropium 0.5 Mg/Albuterol Sulfate 2.5 Mg Ampul.Neb 3 Ml INHALATION 3 ml Q6HRT [facility] Administration Calcium Carbonate 200 mg 03/31/24 22:35 Calcium Carbonate (Tums) 500 Mg (200 Mg Elemental) PO Q6H PRN Indigestion Dextrose 12.5 gm 03/31/24 22:31 Dextrose 50% 25 Gm/50 Ml Syringe IV PUSH PRN PRN Hypoglycemia Protocol Enoxaparin Sodium 40 mg 04/02/24 09:00 04/09/24 09:05 Enoxaparin 40 Mg/0.4 Ml Syringe SUB-Q 40 mg DAILY [facility] Administration Glucagon 1 mg 03/31/24 22:31 Glucagon For Inj 1 Mg Vial IM PRN PRN Hypoglycemia Protocol Glucose 15 gm 03/31/24 22:31 Glucose Oral Gel 15 Gm Of Glucse In 37.5 Gm Tube PO PRN PRN Hypoglycemia Protocol Dextrose 1,000 mls @ 100 mls/hr 03/31/24 22:31 Dextrose 5% 1,000 Ml IVPB PRN PRN Hypoglycemia Protocol Vancomycin HCl 1,750 mg in 500 mls @ 250 mls/hr 04/09/24 05:00 04/09/24 08:34 Vancomycin 1,750 Mg/Ns 500 Ml IVPB Infused Q8H [facility] Infusion Ibuprofen 600 mg 04/01/24 01:25 04/02/24 01:26 Ibuprofen 600 Mg Tablet PO 600 mg Q6H PRN Administration pain 4-6 or fever Insulin Aspart 3 - 6 units 04/01/24 08:00 04/09/24 09:06 Insulin Aspart (*Bkc) 100 Units/Ml SUB-Q Not Given TIDWM [facility]END[facility] TO [facility] Protocol Insulin Aspart 1 - 3 units 04/01/24 21:00 04/08/24 20:20 Insulin Aspart (*Bkc) 100 Units/Ml SUB-Q 1 units HS [facility] Administration Protocol Insulin Glargine 20 units 04/02/24 21:00 04/08/24 20:20 Insulin Glargine (*Bkc) 100 Units/Ml SUB-Q 20 units HS [facility] Administration Levofloxacin 750 mg 04/07/24 21:00 04/08/24 20:18 Levofloxacin 750 Mg Tablet PO 04/11/24 21:01 750 mg QHS [facility] Administration Morphine Sulfate 2 mg 04/01/24 14:51 04/02/24 14:33 Morphine Sulfate (*Crx) 2 Mg/Ml Inj IV PUSH 2 mg Q4H PRN Administration Breakthrough Pain Ondansetron HCl 4 mg 03/31/24 22:38 Ondansetron Inj 4 Mg/2 Ml Vial IV PUSH Q4H PRN Nausea And Vomiting Prednisone 40 mg 04/04/24 12:30 04/09/24 09:05 Prednisone 20 Mg Tablet PO 40 mg DAILY@0800 [facility] Administration Fluticasone/Salmeterol 2 puff 04/01/24 20:00 04/09/24 08:48 Fluticasone/Salmeterol 45-21 Mcg Inhaler 1 Puff INHALATION 2 puff Q12HRT [facility] Administration Radiology Results: ITS Impressions Chest X-Ray 03/31/24 20:18 IMPRESSION: Right upper and middle lobe pneumonia, as detailed above. Chest CT 04/04/24 14:55 IMPRESSION: Progression of multifocal pneumonia, as detailed above. Labs Labs: Laboratory Results - last 24 hr 04/08/24 04/08/24 04/08/24 12:00 17:13 20:17 WBC RBC Hgb Hct MCV MCH MCHC RDW Plt Count MPV Sodium Potassium Chloride Carbon Dioxide Anion Gap BUN Creatinine Estim Creat Clear Calc Estimated GFR Glucose POC Capillary Glucose 133 H 330 H 205 H Calcium Total Bilirubin AST ALT Alkaline Phosphatase Total Protein Albumin Vancomycin Trough 04/09/24 04/09/24 04/09/24 03:35 03:37 08:24 WBC 11.5 H RBC 3.79 L Hgb 11.9 L Hct 35.5 L MCV 93.7 MCH 31.4 MCHC 33.5 RDW 12.5 Plt Count 374 MPV 10.4 Sodium 139 Potassium 3.3 L Chloride 104 Carbon Dioxide 28 Anion Gap 7 BUN 15 Creatinine 0.36 L Estim Creat Clear Calc 137 Estimated GFR > 60 Glucose 98 POC Capillary Glucose 174 H Calcium 8.1 L Total Bilirubin 0.7 AST 32 ALT 24 Alkaline Phosphatase 44 Total Protein 6.0 L Albumin 2.8 L Vancomycin Trough 12.6 Quality VTE Prophylaxis VTE prophylaxis: pharmacologic ordered (Lovenox 40 mg subQ daily) Hospitalist MIPS Advance Care Plan I have confirmed that the patient's Advanced Care Plan is present, code status is documented, or surrogate decision maker is listed in patient medical record.: Yes Medication Reconciliation I have utilized all available resources to obtain, update and review the patients current medications (includes all prescriptions, OTC, herbals, cannabis, and nutritional supplements).: Yes
[2024-04-09 11:57] LABS: Glucose Point of Care 280 mg/dl (65-105)
[2024-04-09] MEDS: INSULIN ASPART (*BKC) 100 UNITS/ML SUB-Q ×3 (12:47→21:00)
[2024-04-09 17:13] LABS: Glucose Point of Care 351 mg/dl (65-105)
[2024-04-09] MEDS: levoFLOXacin 750 MG TABLET PO (21:00)
[2024-04-09] MEDS: INSULIN GLARGINE (*BKC) 100 UNITS/ML 20 UNITS SUB-Q (21:00)
[2024-04-09] MEDS: VANCOMYCIN 1,750 MG/NS 500 ML 1,750 MG/500 ML BAG 125 MG IVPB (21:07)
[2024-04-09 21:33] LABS: Glucose Point of Care 282 mg/dl (65-105)
[2024-04-10] VITALS (12 sets, daily range): BP systolic 140–157; BP diastolic 58–76; PULSE 55–85; RESP 16–20; TEMP 36.1–36.4; O2SAT 93–96
[2024-04-10] MEDS: IPRATROPIUM 0.5 MG/ALBUTEROL SULFATE 2.5 MG AMPUL.NEB 3 ML INHALATION ×4 (02:13→21:17)
[2024-04-10 04:24] LABS: Hemoglobin 11.3 g/dL (12.0-15.0); Mean Corpuscular HGB Conc 33.2 g/dl (32-36); Mean Corpuscular Volume 93.4 fl (80-100); Mean Platelet Volume 9.8 fl (7.4-10.4); Platelet Count Result 352 k/mm3 (150-375); Red Blood Count 3.64 M/mm3 (4.2-5.4); Red Cell Distribution Width 12.4 % (11.5-14.5)
[2024-04-10 04:36] LABS: Alanine Aminotransferase 30 U/L (6-35); Alkaline Phosphatase 41 U/L (38-126); Anion Gap 7 mmol/L (4-12); Aspartate Amino Transferase 23 U/L (14-36); Bilirubin,Total 0.6 mg/dL (0.2-1.3); Blood Urea Nitrogen 20 mg/dL (7-17); Calcium 8.1 mg/dL (8.4-10.2); Carbon Dioxide 24 mmol/L (22-30); Chloride 109 mmol/L (98-107); Estimated CRCL calculation 137 ml/min; Estimated Glomerular Filt Rate > 60; Glucose 152 mg/dL (65-110); Potassium 3.2 mmol/L (3.4-5.0); Sodium 140 mmol/L (137-145)
[2024-04-10 04:40] LABS: Vancomycin Trough 15.9 ug/mL (10.0-20.0)
[2024-04-10] MEDS: VANCOMYCIN 1,750 MG/NS 500 ML 1,750 MG/500 ML BAG 125 MG IVPB (05:20)
[2024-04-10] MEDS: HYDROcodone/acetaminophen (*CRX) 10-325 MG TABLET 1 TAB PO ×2 (05:26→17:54)
[2024-04-10 08:36] LABS: Glucose Point of Care 105 mg/dl (65-105)
[2024-04-10] MEDS: ENOXAPARIN 40 MG/0.4 ML SYRINGE SUB-Q (09:26)
[2024-04-10] MEDS: predniSONE 20 MG TABLET 40 MG PO (09:26)
[2024-04-10] MEDS: FLUTICASONE/SALMETEROL 45-21 MCG INHALER 1 PUFF 2 PUFF INHALATION ×2 (09:47→21:17)
[2024-04-10] MEDS: LIDOCAINE 1% PF INJ 5 ML VIAL INFILTRATE (11:30)
[2024-04-10 12:40] LABS: Glucose Point of Care 232 mg/dl (65-105)
[2024-04-10] MEDS: INSULIN ASPART (*BKC) 100 UNITS/ML SUB-Q ×3 (12:52→20:52)
[2024-04-10] MEDS: VANCOMYCIN 1,750 MG/NS 500 ML 1,750 MG/500 ML BAG 250 MG IVPB ×2 (12:55→20:52)
--- NOTE | 2024-04-10 13:53 | P.PNIM_ITS ---
Progress Note: A&P Assessment and Plan (1) Sepsis: Qualifiers: Sepsis type: sepsis due to unspecified organism Sepsis acute organ dysfunction status: with acute organ dysfunction Severe sepsis acute organ dysfunction type: acute respiratory failure Acute respiratory failure type: with hypoxia Severe sepsis shock status: without septic shock Qualified Code(s): A41.9 - Sepsis, unspecified organism; R65.20 - Severe sepsis without septic shock; J96.01 - Acute respiratory failure with hypoxia Code(s): A41.9 - Sepsis, unspecified organism Status: Acute (2) Respiratory failure: Qualifiers: Chronicity: acute Respiratory failure complication: hypoxia Qualified Code(s): J96.01 - Acute respiratory failure with hypoxia Code(s): J96.90 - Respiratory failure, unspecified, unspecified whether with hypoxia or hypercapnia Status: Acute (3) Influenza A with pneumonia: Code(s): J09.X1 - Influenza due to identified novel influenza A virus with pneumonia Status: Acute (4) Type 2 diabetes mellitus with hyperglycemia: Qualifiers: Diabetes mellitus custodial insulin use: without custodial use Qualified Code(s): E11.65 - Type 2 diabetes mellitus with hyperglycemia Code(s): E11.65 - Type 2 diabetes mellitus with hyperglycemia Status: Acute (5) Current smoker: Code(s): F17.200 - Nicotine dependence, unspecified, uncomplicated Status: Acute (6) Hypokalemia: Code(s): E87.6 - Hypokalemia Status: Acute Plan MRSA bacteremia Likely from pneumonia however rule out Endocarditis [facility] ordered repeat blood culture Continue Vancomycin and Levo DC Cefepime Acute hypoxic respiratory failure From pneumonia, flu and bronchospasm. Continue antibiotics as below , bronchodilator and Tamiflu. 4 liters oxygen [place] Sepsis , resolved From pneumonia Vital signs within normal limits. Continue antibiotics as below and follow-up cultures. Patient is having adequate oral intake, discontinue IVF. Pneumonia Chest x-ray showed a right upper middle lobe pneumonia. Follow-up cultures. MRSA positive patient failed Levaquin and Doxy as pneumonia advanced per repeat CXR Continue Vancomycin and Levo Monitor Influenza A Flu A positive Continue Tamiflu. Bronchospasm likely COPD exacerbation patient is a smoker, undiagnosed. Wheezing has resolved Continue Duoneb treatment, prednisone and Symbicort Monitor for wheezing. Tobacco use Patient counseled about cessation. Type 2 diabetes Sliding scale insulin with Accu-Cheks. DVT prophylaxis subQ Lovenox Pending clinical course Subjective Date/time seen: 04/10/24 13:53 Interval history: No acute events reported. Patient underwent PICC line. Patient needs to get 4 weeks of vancomycin. Review of Systems Review of Systems: 12 systems were reviewed with pertinent positives and negatives per HPI. Except as documented in the HPI, all other systems were reviewed and are negative. All systems reviewed & are unremarkable except as noted in HPI and below (HPI) Exam Narrative: Weight 68.3 kg BMI 26.7 Const: General: no acute distress Other: Acutely ill-appearing, appears older than stated age, well-developed well- nourished HENMT: Mouth: Yes moist mucous membranes Other: Head is normocephalic atraumatic, mucous membranes are tacky, no oral pharyngeal erythema Eyes: General: appearance normal, both eyes and all related structures Sclera: sclerae normal Other: Pupils are equal and reactive, no scleral icterus, no conjunctival pallor Neck: Other: No JVD, trachea midline Resp: Effort & Inspection: normal respiratory effort Other: End-expiratory wheezing bilateral lung cullen, coarse crackles right lung, marked tachypnea Cardio: Rate: regular rate Rhythm: regular rhythm Heart sounds: no murmurs Other: Sinus tachycardia, 2+ pulses bilateral radial and pedal, no murmur GI: Other: Soft, nontender, nondistended, positive bowel sounds Skin: General skin exam: normal color Other: Hot to touch, mottling of the lower extremities, 2nd cap refill Neuro: Speech: normal speech Other: Alert oriented, speech is clear, no facial asymmetry, moves all extremities equally Extrem: Other: No clubbing, no cyanosis Psych: Mental Status: mental status grossly normal Affect: normal affect Other: Anxious, restless, judgment insight intact Objective Data Vital Signs Vital Signs: Vital Signs - 24 hr 04/09/24 14:00 04/09/24 14:25 04/09/24 14:25 Temperature 97.6 F Pulse Rate 75 68 68 Respiratory Rate 18 24 H 24 H Blood Pressure 152/66 H Pulse Oximetry 93 91 Oxygen Delivery Nasal Cannula Oxygen Flow Rate 1 Fraction of Inspired Oxygen 04/09/24 14:35 04/09/24 19:52 04/09/24 19:52 Temperature Pulse Rate 75 65 65 Respiratory Rate 20 18 18 Blood Pressure Pulse Oximetry 93 Oxygen Delivery Nasal Cannula Oxygen Flow Rate 1 Fraction of Inspired Oxygen 04/09/24 20:00 04/09/24 20:05 04/09/24 20:05 Temperature Pulse Rate 75 65 65 Respiratory Rate 20 18 18 Blood Pressure Pulse Oximetry 91 93 Oxygen Delivery Nasal Cannula Oxygen Flow Rate 1 Fraction of Inspired Oxygen 32 04/09/24 21:42 04/10/24 02:13 04/10/24 02:21 Temperature 97.6 F Pulse Rate 79 66 67 Respiratory Rate 16 18 18 Blood Pressure 150/78 H Pulse Oximetry 96 Oxygen Delivery Oxygen Flow Rate Fraction of Inspired Oxygen 04/10/24 05:23 04/10/24 09:34 04/10/24 09:37 Temperature 97.6 F Pulse Rate 71 Respiratory Rate 16 Blood Pressure 157/76 H Pulse Oximetry 96 95 94 Oxygen Delivery Room Air Room Air Oxygen Flow Rate Fraction of Inspired Oxygen 21 04/10/24 09:37 04/10/24 09:47 Temperature Pulse Rate 84 78 Respiratory Rate 20 20 Blood Pressure Pulse Oximetry Oxygen Delivery Oxygen Flow Rate Fraction of Inspired Oxygen Intake/Output Intake/Output: Intake & Output 04/07/24 04/08/24 04/09/24 04/10/24 23:59 23:59 23:59 23:59 Intake Total 2863 2240 2200 1960 Balance 2863 2240 2200 1960 Meds/Results Medications: Active Medications Generic Name Dose Route Start Last Admin Trade Name Freq PRN Reason Stop Dose Admin Acetaminophen 650 mg 03/31/24 22:35 04/03/24 05:39 Acetaminophen 325 Mg Tablet PO 650 mg Q4H PRN Administration Mild Pain (1-3) or Fever Hydrocodone Bitart/Acetaminophen 1 tab 04/02/24 17:06 04/10/24 05:26 Hydrocodone/Acetaminophen (*Crx) 10-325 Mg Tablet PO 1 tab Q4H PRN Administration Pain Rated 7-10 Albuterol/Ipratropium 3 ml 04/01/24 02:00 04/10/24 09:37 Ipratropium 0.5 Mg/Albuterol Sulfate 2.5 Mg Ampul.Neb 3 Ml INHALATION 3 ml Q6HRT [facility] Administration Calcium Carbonate 200 mg 03/31/24 22:35 Calcium Carbonate (Tums) 500 Mg (200 Mg Elemental) PO Q6H PRN Indigestion Dextrose 12.5 gm 03/31/24 22:31 Dextrose 50% 25 Gm/50 Ml Syringe IV PUSH PRN PRN Hypoglycemia Protocol Enoxaparin Sodium 40 mg 04/02/24 09:00 04/10/24 09:26 Enoxaparin 40 Mg/0.4 Ml Syringe SUB-Q 40 mg DAILY [facility] Administration Glucagon 1 mg 03/31/24 22:31 Glucagon For Inj 1 Mg Vial IM PRN PRN Hypoglycemia Protocol Glucose 15 gm 03/31/24 22:31 Glucose Oral Gel 15 Gm Of Glucse In 37.5 Gm Tube PO PRN PRN Hypoglycemia Protocol Dextrose 1,000 mls @ 100 mls/hr 03/31/24 22:31 Dextrose 5% 1,000 Ml IVPB PRN PRN Hypoglycemia Protocol Vancomycin HCl 1,750 mg in 500 mls @ 250 mls/hr 04/09/24 05:00 04/10/24 12:55 Vancomycin 1,750 Mg/Ns 500 Ml IVPB 05/02/24 23:59 250 mls/hr Q8H [facility] Administration Ibuprofen 600 mg 04/01/24 01:25 04/02/24 01:26 Ibuprofen 600 Mg Tablet PO 600 mg Q6H PRN Administration pain 4-6 or fever Insulin Aspart 3 - 6 units 04/01/24 08:00 04/10/24 12:52 Insulin Aspart (*Bkc) 100 Units/Ml SUB-Q 3 units TIDWM [facility] Administration Protocol Insulin Aspart 1 - 3 units 04/01/24 21:00 04/09/24 21:00 Insulin Aspart (*Bkc) 100 Units/Ml SUB-Q 2 units HS [facility] Administration Protocol Insulin Glargine 20 units 04/02/24 21:00 04/09/24 21:00 Insulin Glargine (*Bkc) 100 Units/Ml SUB-Q 20 units HS [facility] Administration Levofloxacin 750 mg 04/07/24 21:00 04/09/24 21:00 Levofloxacin 750 Mg Tablet PO 04/11/24 21:01 750 mg QHS [facility] Administration Morphine Sulfate 2 mg 04/01/24 14:51 04/02/24 14:33 Morphine Sulfate (*Crx) 2 Mg/Ml Inj IV PUSH 2 mg Q4H PRN Administration Breakthrough Pain Ondansetron HCl 4 mg 03/31/24 22:38 Ondansetron Inj 4 Mg/2 Ml Vial IV PUSH Q4H PRN Nausea And Vomiting Prednisone 40 mg 04/04/24 12:30 04/10/24 09:26 Prednisone 20 Mg Tablet PO 40 mg DAILY@0800 [facility] Administration Fluticasone/Salmeterol 2 puff 04/01/24 20:00 04/10/24 09:47 Fluticasone/Salmeterol 45-21 Mcg Inhaler 1 Puff INHALATION 2 puff Q12HRT [facility] Administration Sodium Chloride 10 ml 04/10/24 14:00 Central Line Flush IV PUSH Q8HR [facility] Sodium Chloride 10 ml 04/10/24 12:04 Central Line Flush IV PUSH PRN PRN with TPN bag changes Sodium Chloride 20 ml 04/10/24 12:04 Central Line Flush IV PUSH PRN PRN after blood draws Radiology Results: ITS Impressions Chest X-Ray 03/31/24 20:18 IMPRESSION: Right upper and middle lobe pneumonia, as detailed above. Chest CT 04/04/24 14:55 IMPRESSION: Progression of multifocal pneumonia, as detailed above. Labs Labs: Laboratory Results - last 24 hr 04/09/24 04/09/24 04/10/24 17:10 20:58 04:18 WBC 12.0 H RBC 3.64 L Hgb 11.3 L Hct 34.0 L MCV 93.4 MCH 31.0 MCHC 33.2 RDW 12.4 Plt Count 352 MPV 9.8 Sodium 140 Potassium 3.2 L Chloride 109 H Carbon Dioxide 24 Anion Gap 7 BUN 20 H Creatinine 0.36 L Estim Creat Clear Calc 137 Estimated GFR > 60 Glucose 152 H POC Capillary Glucose 351 H 282 H Calcium 8.1 L Total Bilirubin 0.6 AST 23 ALT 30 Alkaline Phosphatase 41 Total Protein 6.0 L Albumin 3.0 L Vancomycin Trough 15.9 04/10/24 04/10/24 08:34 12:35 WBC RBC Hgb Hct MCV MCH MCHC RDW Plt Count MPV Sodium Potassium Chloride Carbon Dioxide Anion Gap BUN Creatinine Estim Creat Clear Calc Estimated GFR Glucose POC Capillary Glucose 105 232 H Calcium Total Bilirubin AST ALT Alkaline Phosphatase Total Protein Albumin Vancomycin Trough Quality VTE Prophylaxis VTE prophylaxis: pharmacologic ordered (Lovenox 40 mg subQ daily) Hospitalist MIPS Advance Care Plan I have confirmed that the patient's Advanced Care Plan is present, code status is documented, or surrogate decision maker is listed in patient medical record.: Yes Medication Reconciliation I have utilized all available resources to obtain, update and review the patients current medications (includes all prescriptions, OTC, herbals, cannabis, and nutritional supplements).: Yes
[2024-04-10] MEDS: IBUPROFEN 600 MG TABLET PO (13:59)
[2024-04-10] MEDS: CENTRAL LINE FLUSH 10 ML IV PUSH ×2 (15:21→20:53)
[2024-04-10] MEDS: ACETAMINOPHEN 325 MG TABLET 650 MG PO (15:47)
[2024-04-10 17:47] LABS: Glucose Point of Care 260 mg/dl (65-105)
[2024-04-10] MEDS: INSULIN GLARGINE (*BKC) 100 UNITS/ML 20 UNITS SUB-Q (20:51)
[2024-04-10] MEDS: levoFLOXacin 750 MG TABLET PO (20:53)
[2024-04-11] VITALS (10 sets, daily range): BP systolic 142–153; BP diastolic 65–83; PULSE 58–92; RESP 16–19; TEMP 36.3–36.8; O2SAT 92–96
[2024-04-11] MEDS: IPRATROPIUM 0.5 MG/ALBUTEROL SULFATE 2.5 MG AMPUL.NEB 3 ML INHALATION ×3 (01:47→20:10)
[2024-04-11 01:59] LABS: Glucose Point of Care 253 mg/dl (65-105)
[2024-04-11] MEDS: HYDROcodone/acetaminophen (*CRX) 10-325 MG TABLET 1 TAB PO ×3 (02:53→17:42)
[2024-04-11 03:56] LABS: Hematocrit 33.1 % (37.0-47.0); Hemoglobin 11.1 g/dL (12.0-15.0); Mean Corpuscular HGB Conc 33.5 g/dl (32-36); Mean Corpuscular Volume 92.5 fl (80-100); Mean Platelet Volume 9.7 fl (7.4-10.4); Platelet Count Result 352 k/mm3 (150-375); Red Blood Count 3.58 M/mm3 (4.2-5.4); Red Cell Distribution Width 12.4 % (11.5-14.5); White Blood Count 13.4 K/mm3 (4.5-10.0)
[2024-04-11 04:07] LABS: Alanine Aminotransferase 43 U/L (6-35); Albumin Level 2.9 g/dL (3.5-5.1); Alkaline Phosphatase 46 U/L (38-126); Anion Gap 9 mmol/L (4-12); Aspartate Amino Transferase 24 U/L (14-36); Bilirubin,Total 0.7 mg/dL (0.2-1.3); Blood Urea Nitrogen 15 mg/dL (7-17); Calcium 8.2 mg/dL (8.4-10.2); Carbon Dioxide 28 mmol/L (22-30); Chloride 103 mmol/L (98-107); Estimated CRCL calculation 134 ml/min; Estimated Glomerular Filt Rate > 60; Glucose 136 mg/dL (65-110); Potassium 3.3 mmol/L (3.4-5.0); Sodium 140 mmol/L (137-145)
[2024-04-11 04:13] LABS: Vancomycin Trough 13.8 ug/mL (10.0-20.0)
[2024-04-11] MEDS: VANCOMYCIN 1,750 MG/NS 500 ML 1,750 MG/500 ML BAG 250 MG IVPB ×3 (05:15→21:04)
--- NOTE | 2024-04-11 08:20 | PM.IMPN ---
Progress Note: A&P Assessment and Plan (1) Sepsis: Qualifiers: Acute respiratory failure type: with hypoxia Sepsis acute organ dysfunction status: with acute organ dysfunction Sepsis type: sepsis due to unspecified organism Severe sepsis acute organ dysfunction type: acute respiratory failure Severe sepsis shock status: without septic shock Qualified Code(s): A41.9 - Sepsis, unspecified organism; R65.20 - Severe sepsis without septic shock; J96.01 - Acute respiratory failure with hypoxia Code(s): A41.9 - Sepsis, unspecified organism Status: Acute (2) Respiratory failure: Qualifiers: Chronicity: acute Respiratory failure complication: hypoxia Qualified Code(s): J96.01 - Acute respiratory failure with hypoxia Code(s): J96.90 - Respiratory failure, unspecified, unspecified whether with hypoxia or hypercapnia Status: Acute (3) Influenza A with pneumonia: Code(s): J09.X1 - Influenza due to identified novel influenza A virus with pneumonia Status: Acute (4) Type 2 diabetes mellitus with hyperglycemia: Qualifiers: Diabetes mellitus [facility] insulin use: without [facility] use Qualified Code(s): E11.65 - Type 2 diabetes mellitus with hyperglycemia Code(s): E11.65 - Type 2 diabetes mellitus with hyperglycemia Status: Acute (5) Current smoker: Code(s): F17.200 - Nicotine dependence, unspecified, uncomplicated Status: Acute (6) Hypokalemia: Code(s): E87.6 - Hypokalemia Status: Acute Plan MRSA bacteremia Likely from pneumonia however rule out Endocarditis [facility] ordered repeat blood culture Continue Vancomycin and Levo DC Cefepime Acute hypoxic respiratory failure From pneumonia, flu and bronchospasm. Continue antibiotics as below , bronchodilator and Tamiflu. 4 liters oxygen [place] Sepsis , resolved From pneumonia Vital signs within normal limits. Continue antibiotics as below and follow-up cultures. Patient is having adequate oral intake, discontinue IVF. Pneumonia Chest x-ray showed a right upper middle lobe pneumonia. Follow-up cultures. MRSA positive patient failed Levaquin and Doxy as pneumonia advanced per repeat CXR Continue Vancomycin and Levo Monitor Influenza A Flu A positive Continue Tamiflu. Bronchospasm likely COPD exacerbation patient is a smoker, undiagnosed. Wheezing has resolved Continue Duoneb treatment, prednisone and Symbicort Monitor for wheezing. Tobacco use Patient counseled about cessation. Type 2 diabetes Sliding scale insulin with Accu-Cheks. DVT prophylaxis subQ Lovenox Pending clinical course Subjective Date/time seen: 04/11/24 08:20 Interval history: Increase in WBC. Ordered CXR and BC. Will advise incentive spirometry Review of Systems Review of Systems: 12 systems were reviewed with pertinent positives and negatives per HPI. Except as documented in the HPI, all other systems were reviewed and are negative. All systems reviewed & are unremarkable except as noted in HPI and below (HPI) Exam Narrative: Weight 68.3 kg BMI 26.7 Const: General: no acute distress Other: Acutely ill-appearing, appears older than stated age, well-developed well-nourished HENMT: Mouth: Yes moist mucous membranes Other: Head is normocephalic atraumatic, mucous membranes are tacky, no oral pharyngeal erythema Eyes: General: appearance normal, both eyes and all related structures Sclera: sclerae normal Other: Pupils are equal and reactive, no scleral icterus, no conjunctival pallor Neck: Other: No JVD, trachea midline Resp: Effort & Inspection: normal respiratory effort Other: End-expiratory wheezing bilateral lung cullen, coarse crackles right lung, marked tachypnea Cardio: Rate: regular rate Rhythm: regular rhythm Heart sounds: no murmurs Other: Sinus tachycardia, 2+ pulses bilateral radial and pedal, no murmur GI: Other: Soft, nontender, nondistended, positive bowel sounds Skin: General skin exam: normal color Other: Hot to touch, mottling of the lower extremities, 2nd cap refill Neuro: Speech: normal speech Other: Alert oriented, speech is clear, no facial asymmetry, moves all extremities equally Extrem: Other: No clubbing, no cyanosis Psych: Mental Status: mental status grossly normal Affect: normal affect Other: Anxious, restless, judgment insight intact Objective Data Vital Signs Vital Signs: Vital Signs - 24 hr 04/10/24 09:34 04/10/24 09:37 04/10/24 09:37 Temperature Pulse Rate 84 Respiratory Rate 20 Blood Pressure Pulse Oximetry 95 94 Oxygen Delivery Room Air Room Air Fraction of Inspired Oxygen 04/10/24 09:47 04/10/24 14:48 04/10/24 15:28 Temperature 97.0 F L Pulse Rate 78 68 Respiratory Rate 20 16 Blood Pressure 140/58 L Pulse Oximetry 93 95 Oxygen Delivery Room Air Fraction of Inspired Oxygen 04/10/24 15:28 04/10/24 15:35 04/10/24 20:44 Temperature Pulse Rate 85 82 Respiratory Rate 20 20 Blood Pressure Pulse Oximetry Oxygen Delivery Room Air Fraction of Inspired Oxygen 04/10/24 20:47 04/10/24 21:19 04/10/24 21:19 Temperature 97.6 F Pulse Rate 55 L 75 Respiratory Rate 18 18 Blood Pressure 156/70 H Pulse Oximetry 95 93 Oxygen Delivery Room Air Fraction of Inspired Oxygen 21 04/10/24 21:25 04/11/24 01:48 04/11/24 01:55 Temperature Pulse Rate 70 61 58 L Respiratory Rate 18 18 18 Blood Pressure Pulse Oximetry Oxygen Delivery Fraction of Inspired Oxygen 04/11/24 06:00 Temperature 97.4 F L Pulse Rate 67 Respiratory Rate 16 Blood Pressure 153/83 H Pulse Oximetry 94 Oxygen Delivery Fraction of Inspired Oxygen Intake/Output Intake/Output: Intake & Output 04/08/24 04/09/24 04/10/24 04/11/24 23:59 23:59 23:59 23:59 Intake Total 2240 2200 3700 900 Balance 2240 2200 3700 900 Meds/Results Medications: Active Medications Generic Name Dose Route Start Last Admin Trade Name Freq PRN Reason Stop Dose Admin Acetaminophen 650 mg 03/31/24 22:35 04/10/24 15:47 Acetaminophen 325 Mg Tablet PO 650 mg Q4H PRN Administration Mild Pain (1-3) or Fever Hydrocodone Bitart/Acetaminophen 1 tab 04/02/24 17:06 04/11/24 02:53 Hydrocodone/Acetaminophen (*Crx) 10-325 Mg Tablet PO 1 tab Q4H PRN Administration Pain Rated 7-10 Albuterol/Ipratropium 3 ml 04/01/24 02:00 04/11/24 01:47 Ipratropium 0.5 Mg/Albuterol Sulfate 2.5 Mg Ampul.Neb 3 Ml INHALATION 3 ml Q6HRT [facility] Administration Calcium Carbonate 200 mg 03/31/24 22:35 Calcium Carbonate (Tums) 500 Mg (200 Mg Elemental) PO Q6H PRN Indigestion Dextrose 12.5 gm 03/31/24 22:31 Dextrose 50% 25 Gm/50 Ml Syringe IV PUSH PRN PRN Hypoglycemia Protocol Enoxaparin Sodium 40 mg 04/02/24 09:00 04/10/24 09:26 Enoxaparin 40 Mg/0.4 Ml Syringe SUB-Q 40 mg DAILY [facility] Administration Glucagon 1 mg 03/31/24 22:31 Glucagon For Inj 1 Mg Vial IM PRN PRN Hypoglycemia Protocol Glucose 15 gm 03/31/24 22:31 Glucose Oral Gel 15 Gm Of Glucse In 37.5 Gm Tube PO PRN PRN Hypoglycemia Protocol Dextrose 1,000 mls @ 100 mls/hr 03/31/24 22:31 Dextrose 5% 1,000 Ml IVPB PRN PRN Hypoglycemia Protocol Vancomycin HCl 1,750 mg in 500 mls @ 250 mls/hr 04/09/24 05:00 04/11/24 05:15 Vancomycin 1,750 Mg/Ns 500 Ml IVPB 05/02/24 23:59 250 mls/hr Q8H [facility] Administration Ibuprofen 600 mg 04/01/24 01:25 04/10/24 13:59 Ibuprofen 600 Mg Tablet PO 600 mg Q6H PRN Administration pain 4-6 or fever Insulin Aspart 3 - 6 units 04/01/24 08:00 04/10/24 17:55 Insulin Aspart (*Bkc) 100 Units/Ml SUB-Q 4 units TIDWM [facility] Administration Protocol Insulin Aspart 1 - 3 units 04/01/24 21:00 04/10/24 20:52 Insulin Aspart (*Bkc) 100 Units/Ml SUB-Q 2 units HS [facility] Administration Protocol Insulin Glargine 20 units 04/02/24 21:00 04/10/24 20:51 Insulin Glargine (*Bkc) 100 Units/Ml SUB-Q 20 units HS [facility] Administration Levofloxacin 750 mg 04/07/24 21:00 04/10/24 20:53 Levofloxacin 750 Mg Tablet PO 04/11/24 21:01 750 mg QHS [facility] Administration Ondansetron HCl 4 mg 03/31/24 22:38 Ondansetron Inj 4 Mg/2 Ml Vial IV PUSH Q4H PRN Nausea And Vomiting Prednisone 40 mg 04/04/24 12:30 04/10/24 09:26 Prednisone 20 Mg Tablet PO 40 mg DAILY@0800 [facility] Administration Fluticasone/Salmeterol 2 puff 04/01/24 20:00 04/10/24 21:17 Fluticasone/Salmeterol 45-21 Mcg Inhaler 1 Puff INHALATION 2 puff Q12HRT [facility] Administration Sodium Chloride 10 ml 04/10/24 14:00 04/10/24 20:53 Central Line Flush IV PUSH 10 ml Q8HR [facility] Administration Sodium Chloride 10 ml 04/10/24 12:04 Central Line Flush IV PUSH PRN PRN with TPN bag changes Sodium Chloride 20 ml 04/10/24 12:04 Central Line Flush IV PUSH PRN PRN after blood draws Radiology Results: ITS Impressions Chest X-Ray 03/31/24 20:18 IMPRESSION: Right upper and middle lobe pneumonia, as detailed above. Chest CT 04/04/24 14:55 IMPRESSION: Progression of multifocal pneumonia, as detailed above. Labs Labs: Laboratory Results - last 24 hr 04/10/24 04/10/24 04/10/24 08:34 12:35 17:42 WBC RBC Hgb Hct MCV MCH MCHC RDW Plt Count MPV Sodium Potassium Chloride Carbon Dioxide Anion Gap BUN Creatinine Estim Creat Clear Calc Estimated GFR Glucose POC Capillary Glucose 105 232 H 260 H Calcium Total Bilirubin AST ALT Alkaline Phosphatase Total Protein Albumin Vancomycin Trough 04/10/24 04/11/24 20:43 03:48 WBC 13.4 H RBC 3.58 L Hgb 11.1 L Hct 33.1 L MCV 92.5 MCH 31.0 MCHC 33.5 RDW 12.4 Plt Count 352 MPV 9.7 Sodium 140 Potassium 3.3 L Chloride 103 Carbon Dioxide 28 Anion Gap 9 BUN 15 D Creatinine 0.37 L Estim Creat Clear Calc 134 Estimated GFR > 60 Glucose 136 H POC Capillary Glucose 253 H Calcium 8.2 L Total Bilirubin 0.7 AST 24 ALT 43 H Alkaline Phosphatase 46 Total Protein 6.0 L Albumin 2.9 L Vancomycin Trough 13.8 Quality VTE Prophylaxis VTE prophylaxis: pharmacologic ordered (Lovenox 40 mg subQ daily) Hospitalist MIPS Advance Care Plan I have confirmed that the patient's Advanced Care Plan is present, code status is documented, or surrogate decision maker is listed in patient medical record.: Yes Medication Reconciliation I have utilized all available resources to obtain, update and review the patients current medications (includes all prescriptions, OTC, herbals, cannabis, and nutritional supplements).: Yes
[2024-04-11 09:04] LABS: Glucose Point of Care 100 mg/dl (65-105)
[2024-04-11] MEDS: predniSONE 20 MG TABLET 40 MG PO (09:09)
[2024-04-11] MEDS: ENOXAPARIN 40 MG/0.4 ML SYRINGE SUB-Q (09:10)
[2024-04-11] MEDS: CENTRAL LINE FLUSH 10 ML IV PUSH ×3 (09:12→20:49)
--- NOTE | 2024-04-11 12:08 | PCRCNOTE ---
Window of time for administration has passed. See next scheduled administration.
[2024-04-11 12:21] LABS: Glucose Point of Care 307 mg/dl (65-105)
[2024-04-11] MEDS: INSULIN ASPART (*BKC) 100 UNITS/ML SUB-Q ×3 (13:11→20:43)
[2024-04-11 16:52] LABS: Glucose Point of Care 338 mg/dl (65-105)
[2024-04-11] MEDS: FLUTICASONE/SALMETEROL 45-21 MCG INHALER 1 PUFF 2 PUFF INHALATION (20:10)
[2024-04-11 20:38] LABS: Glucose Point of Care 235 mg/dl (65-105)
[2024-04-11] MEDS: INSULIN GLARGINE (*BKC) 100 UNITS/ML 20 UNITS SUB-Q (20:43)
[2024-04-11] MEDS: levoFLOXacin 750 MG TABLET PO (20:48)
[2024-04-12] VITALS (11 sets, daily range): BP systolic 143–161; BP diastolic 72–78; PULSE 64–80; RESP 16–20; TEMP 36.1–36.2; O2SAT 92–96
[2024-04-12] MEDS: IPRATROPIUM 0.5 MG/ALBUTEROL SULFATE 2.5 MG AMPUL.NEB 3 ML INHALATION ×4 (02:09→20:18)
[2024-04-12] MEDS: HYDROcodone/acetaminophen (*CRX) 10-325 MG TABLET 1 TAB PO ×3 (02:25→18:52)
[2024-04-12 04:34] LABS: Hematocrit 33.4 % (37.0-47.0); Mean Corpuscular HGB Conc 32.9 g/dl (32-36); Mean Corpuscular Hemoglobin 30.6 pg (26-34); Mean Corpuscular Volume 92.8 fl (80-100); Mean Platelet Volume 9.5 fl (7.4-10.4); Platelet Count Result 344 k/mm3 (150-375); Red Cell Distribution Width 12.6 % (11.5-14.5); White Blood Count 12.6 K/mm3 (4.5-10.0)
[2024-04-12 04:48] LABS: Alanine Aminotransferase 34 U/L (6-35); Alkaline Phosphatase 44 U/L (38-126); Anion Gap 6 mmol/L (4-12); Aspartate Amino Transferase 18 U/L (14-36); Bilirubin,Total 0.7 mg/dL (0.2-1.3); Blood Urea Nitrogen 13 mg/dL (7-17); Calcium 8.2 mg/dL (8.4-10.2); Carbon Dioxide 31 mmol/L (22-30); Chloride 103 mmol/L (98-107); Estimated CRCL calculation 128 ml/min; Estimated Glomerular Filt Rate > 60; Glucose 92 mg/dL (65-110); Potassium 3.2 mmol/L (3.4-5.0); Sodium 140 mmol/L (137-145)
[2024-04-12 05:40] LABS: Vancomycin Trough 14.3 ug/mL (10.0-20.0)
[2024-04-12] MEDS: VANCOMYCIN 1,750 MG/NS 500 ML 1,750 MG/500 ML BAG 250 MG IVPB (05:42)
[2024-04-12] MEDS: CENTRAL LINE FLUSH 10 ML IV PUSH ×3 (05:45→21:47)
--- NOTE | 2024-04-12 07:27 | P.PNIM_ITS ---
Progress Note: A&P Assessment and Plan (1) Sepsis: Qualifiers: Acute respiratory failure type: with hypoxia Sepsis acute organ dysfunction status: with acute organ dysfunction Sepsis type: sepsis due to unspecified organism Severe sepsis acute organ dysfunction type: acute respiratory failure Severe sepsis shock status: without septic shock Qualified Code(s): A41.9 - Sepsis, unspecified organism; R65.20 - Severe sepsis without septic shock; J96.01 - Acute respiratory failure with hypoxia Code(s): A41.9 - Sepsis, unspecified organism Status: Acute (2) Respiratory failure: Qualifiers: Chronicity: acute Respiratory failure complication: hypoxia Qualified Code(s): J96.01 - Acute respiratory failure with hypoxia Code(s): J96.90 - Respiratory failure, unspecified, unspecified whether with hypoxia or hypercapnia Status: Acute (3) Influenza A with pneumonia: Code(s): J09.X1 - Influenza due to identified novel influenza A virus with pneumonia Status: Acute (4) Type 2 diabetes mellitus with hyperglycemia: Qualifiers: Diabetes mellitus senior care insulin use: without senior care use Qualified Code(s): E11.65 - Type 2 diabetes mellitus with hyperglycemia Code(s): E11.65 - Type 2 diabetes mellitus with hyperglycemia Status: Acute (5) Current smoker: Code(s): F17.200 - Nicotine dependence, unspecified, uncomplicated Status: Acute (6) Hypokalemia: Code(s): E87.6 - Hypokalemia Status: Acute Plan MRSA bacteremia Likely from pneumonia however rule out Endocarditis EMORY ordered repeat blood culture Continue Vancomycin and Levo DC Cefepime DM Type 2 HbA1c 10.9 Start lisinopril 40 p.o. q.d. Start atorvastatin 40 p.o. q.d. Order lipid profile Continue Lantus 20 units HS On sliding scale Hypoglycemic protocol Acute hypoxic respiratory failure From pneumonia, flu and bronchospasm. Continue antibiotics as below , bronchodilator and Tamiflu. 4 liters oxygen NC Sepsis , resolved From pneumonia Vital signs within normal limits. Continue antibiotics as below and follow-up cultures. Patient is having adequate oral intake, discontinue IVF. Pneumonia Chest x-ray showed a right upper middle lobe pneumonia. Follow-up cultures. MRSA positive patient failed Levaquin and Doxy as pneumonia advanced per repeat CXR Continue Vancomycin and Levo Monitor Influenza A Flu A positive Continue Tamiflu. Bronchospasm likely COPD exacerbation patient is a smoker, undiagnosed. Wheezing has resolved Continue Duoneb treatment, prednisone and Symbicort Monitor for wheezing. Tobacco use Patient counseled about cessation. Type 2 diabetes Sliding scale insulin with Accu-Cheks. DVT prophylaxis subQ Lovenox Pending clinical course Subjective Date/time seen: 04/12/24 07:27 Interval history: Continue Vancomycin for 4 weeks due MRSA bacteremia .Lately her BP is increased, possibly due to the agitation from smoking cessation.Will add lisinopril due to DM. Will order lipid profile. Review of Systems Review of Systems: 12 systems were reviewed with pertinent positives and negatives per HPI. Except as documented in the HPI, all other systems were reviewed and are negative. All systems reviewed & are unremarkable except as noted in HPI and below (HPI) Exam Narrative: Weight 68.3 kg BMI 26.7 Const: General: no acute distress Other: Acutely ill-appearing, appears older than stated age, well-developed well- nourished HENMT: Mouth: Yes moist mucous membranes Other: Head is normocephalic atraumatic, mucous membranes are tacky, no oral pharyngeal erythema Eyes: General: appearance normal, both eyes and all related structures Sclera: sclerae normal Other: Pupils are equal and reactive, no scleral icterus, no conjunctival pallor Neck: Other: No JVD, trachea midline Resp: Effort & Inspection: normal respiratory effort Other: End-expiratory wheezing bilateral lung cullen, coarse crackles right lung, marked tachypnea Cardio: Rate: regular rate Rhythm: regular rhythm Heart sounds: no murmurs Other: Sinus tachycardia, 2+ pulses bilateral radial and pedal, no murmur GI: Other: Soft, nontender, nondistended, positive bowel sounds Skin: General skin exam: normal color Other: Hot to touch, mottling of the lower extremities, 2nd cap refill Neuro: Speech: normal speech Other: Alert oriented, speech is clear, no facial asymmetry, moves all extremities equally Extrem: Other: No clubbing, no cyanosis Psych: Mental Status: mental status grossly normal Affect: normal affect Other: Anxious, restless, judgment insight intact Objective Data Vital Signs Vital Signs: Vital Signs - 24 hr 04/11/24 08:00 04/11/24 14:00 04/11/24 16:36 Temperature 98.2 F Pulse Rate 75 Respiratory Rate 19 Blood Pressure 149/80 H Pulse Oximetry 96 92 Oxygen Delivery Room Air Room Air 04/11/24 16:36 04/11/24 16:53 04/11/24 20:00 Temperature Pulse Rate 71 65 Respiratory Rate 16 16 Blood Pressure Pulse Oximetry Oxygen Delivery Room Air 04/11/24 20:11 04/11/24 20:13 04/11/24 20:18 Temperature Pulse Rate 77 72 Respiratory Rate 18 18 Blood Pressure Pulse Oximetry 92 Oxygen Delivery Room Air 04/11/24 21:26 04/12/24 02:10 04/12/24 02:17 Temperature 97.3 F L Pulse Rate 92 68 69 Respiratory Rate 16 18 18 Blood Pressure 142/65 H Pulse Oximetry 94 Oxygen Delivery 04/12/24 05:34 Temperature 97.0 F L Pulse Rate 67 Respiratory Rate 16 Blood Pressure 161/78 H Pulse Oximetry 94 Oxygen Delivery Intake/Output Intake/Output: Intake & Output 04/09/24 04/10/24 04/11/24 04/12/24 23:59 23:59 23:59 23:59 Intake Total 2200 3700 3001 500 Balance 2200 3700 3001 500 Meds/Results Medications: Active Medications Generic Name Dose Route Start Last Admin Trade Name Freq PRN Reason Stop Dose Admin Acetaminophen 650 mg 03/31/24 22:35 04/10/24 15:47 Acetaminophen 325 Mg Tablet PO 650 mg Q4H PRN Administration Mild Pain (1-3) or Fever Hydrocodone Bitart/Acetaminophen 1 tab 04/02/24 17:06 04/12/24 02:25 Hydrocodone/Acetaminophen (*Crx) 10-325 Mg Tablet PO 1 tab Q4H PRN Administration Pain Rated 7-10 Albuterol/Ipratropium 3 ml 04/01/24 02:00 04/12/24 02:09 Ipratropium 0.5 Mg/Albuterol Sulfate 2.5 Mg Ampul.Neb 3 Ml INHALATION 3 ml Q6HRT CAMERON Administration Calcium Carbonate 200 mg 03/31/24 22:35 Calcium Carbonate (Tums) 500 Mg (200 Mg Elemental) PO Q6H PRN Indigestion Dextrose 12.5 gm 03/31/24 22:31 Dextrose 50% 25 Gm/50 Ml Syringe IV PUSH PRN PRN Hypoglycemia Protocol Enoxaparin Sodium 40 mg 04/02/24 09:00 04/11/24 09:10 Enoxaparin 40 Mg/0.4 Ml Syringe SUB-Q 40 mg DAILY CAMERON Administration Glucagon 1 mg 03/31/24 22:31 Glucagon For Inj 1 Mg Vial IM PRN PRN Hypoglycemia Protocol Glucose 15 gm 03/31/24 22:31 Glucose Oral Gel 15 Gm Of Glucse In 37.5 Gm Tube PO PRN PRN Hypoglycemia Protocol Dextrose 1,000 mls @ 100 mls/hr 03/31/24 22:31 Dextrose 5% 1,000 Ml IVPB PRN PRN Hypoglycemia Protocol Vancomycin HCl 2,000 mg in 500 mls @ 250 mls/hr 04/12/24 14:00 Vancomycin 2,000 Mg/Ns 500 Ml IVPB Q8H CAMERON Ibuprofen 600 mg 04/01/24 01:25 04/10/24 13:59 Ibuprofen 600 Mg Tablet PO 600 mg Q6H PRN Administration pain 4-6 or fever Insulin Aspart 3 - 6 units 04/01/24 08:00 04/11/24 17:35 Insulin Aspart (*Bkc) 100 Units/Ml SUB-Q 5 units TIDWM CAMERON Administration Protocol Insulin Aspart 1 - 3 units 04/01/24 21:00 04/11/24 20:43 Insulin Aspart (*Bkc) 100 Units/Ml SUB-Q 1 units HS CAMERON Administration Protocol Insulin Glargine 20 units 04/02/24 21:00 04/11/24 20:43 Insulin Glargine (*Bkc) 100 Units/Ml SUB-Q 20 units HS CAMERON Administration Miscellaneous Information 0 each 04/11/24 00:01 [place] Order Requires Renewal - Will Discontinue On 04/12 In The Afternoon XX 05/11/24 00:00 CLARIFY CAMERON Ondansetron HCl 4 mg 03/31/24 22:38 Ondansetron Inj 4 Mg/2 Ml Vial IV PUSH Q4H PRN Nausea And Vomiting Prednisone 40 mg 04/04/24 12:30 04/11/24 09:09 Prednisone 20 Mg Tablet PO 40 mg DAILY@0800 CAMERON Administration Fluticasone/Salmeterol 2 puff 04/01/24 20:00 04/11/24 20:10 Fluticasone/Salmeterol 45-21 Mcg Inhaler 1 Puff INHALATION 2 puff Q12HRT CAMERON Administration Sodium Chloride 10 ml 04/10/24 14:00 04/12/24 05:45 Central Line Flush IV PUSH 10 ml Q8HR CAMERON Administration Sodium Chloride 10 ml 04/10/24 12:04 Central Line Flush IV PUSH PRN PRN with TPN bag changes Sodium Chloride 20 ml 04/10/24 12:04 Central Line Flush IV PUSH PRN PRN after blood draws Radiology Results: ITS Impressions Chest CT 04/04/24 14:55 IMPRESSION: Progression of multifocal pneumonia, as detailed above. Chest X-Ray 04/11/24 08:38 IMPRESSION: Redemonstration bilateral lower lobe infiltrates, right greater than left. Labs Labs: Laboratory Results - last 24 hr 04/11/24 04/11/24 04/11/24 08:42 11:40 16:16 WBC RBC Hgb Hct MCV MCH MCHC RDW Plt Count MPV Sodium Potassium Chloride Carbon Dioxide Anion Gap BUN Creatinine Estim Creat Clear Calc Estimated GFR Glucose POC Capillary Glucose 100 307 H 338 H Calcium Total Bilirubin AST ALT Alkaline Phosphatase Total Protein Albumin Vancomycin Trough 04/11/24 04/12/24 20:34 04:29 WBC 12.6 H RBC 3.60 L Hgb 11.0 L Hct 33.4 L MCV 92.8 MCH 30.6 MCHC 32.9 RDW 12.6 Plt Count 344 MPV 9.5 Sodium 140 Potassium 3.2 L Chloride 103 Carbon Dioxide 31 H Anion Gap 6 BUN 13 Creatinine 0.39 L Estim Creat Clear Calc 128 Estimated GFR > 60 Glucose 92 POC Capillary Glucose 235 H Calcium 8.2 L Total Bilirubin 0.7 AST 18 ALT 34 Alkaline Phosphatase 44 Total Protein 6.0 L Albumin 3.0 L Vancomycin Trough 14.3 Quality VTE Prophylaxis VTE prophylaxis: pharmacologic ordered (Lovenox 40 mg subQ daily) Hospitalist [facility] Advance Care Plan I have confirmed that the patient's Advanced Care Plan is present, code status is documented, or surrogate decision maker is listed in patient medical record.: Yes Medication Reconciliation I have utilized all available resources to obtain, update and review the patients current medications (includes all prescriptions, OTC, herbals, cannabis, and nutritional supplements).: Yes
[2024-04-12] MEDS: FLUTICASONE/SALMETEROL 45-21 MCG INHALER 1 PUFF 2 PUFF INHALATION ×2 (07:53→20:20)
[2024-04-12 08:50] LABS: Glucose Point of Care 101 mg/dl (65-105)
[2024-04-12] MEDS: ENOXAPARIN 40 MG/0.4 ML SYRINGE SUB-Q (09:01)
[2024-04-12] MEDS: lisinopriL 20 MG TABLET 40 MG PO (09:01)
[2024-04-12] MEDS: predniSONE 20 MG TABLET 40 MG PO (09:02)
[2024-04-12] MEDS: POTASSIUM CHLORIDE 20 MEQ ER TABLET 60 MEQ PO (09:02)
[2024-04-12] MEDS: ATORVASTATIN 40 MG TABLET PO (09:02)
[2024-04-12 09:52] LABS: Cholesterol 92 mg/dL (0-200); HDL Direct 23 mg/dL; Triglycerides 77 mg/dL (<150)
[2024-04-12 10:20] LABS: LDL Cholesterol Direct 54 mg/dL
[2024-04-12 11:53] LABS: Glucose Point of Care 209 mg/dl (65-105)
[2024-04-12] MEDS: INSULIN ASPART (*BKC) 100 UNITS/ML SUB-Q ×3 (12:48→20:32)
[2024-04-12] MEDS: VANCOMYCIN 2,000 MG/NS 500 ML 2,000 MG/500 ML BAG 250 MG IVPB ×2 (14:36→21:46)
[2024-04-12 16:56] LABS: Glucose Point of Care 241 mg/dl (65-105)
[2024-04-12] MEDS: INSULIN GLARGINE (*BKC) 100 UNITS/ML 20 UNITS SUB-Q (20:32)
[2024-04-13 02:12] VITALS: PULSE 74; RESP 18
[2024-04-13] MEDS: IPRATROPIUM 0.5 MG/ALBUTEROL SULFATE 2.5 MG AMPUL.NEB 3 ML INHALATION (02:12)
[2024-04-13 02:19] VITALS: PULSE 80; RESP 18
[2024-04-13] MEDS: VANCOMYCIN 2,000 MG/NS 500 ML 2,000 MG/500 ML BAG 250 MG IVPB (05:55)
[2024-04-13] MEDS: CENTRAL LINE FLUSH 10 ML IV PUSH (05:58)
[2024-04-13 06:00] VITALS: BP 148/88; PULSE 84; RESP 16; TEMP 36.5; O2SAT 95
[2024-04-13] MEDS: HYDROcodone/acetaminophen (*CRX) 10-325 MG TABLET 1 TAB PO (06:01)
[2024-04-13 06:16] LABS: Hematocrit 34.7 % (37.0-47.0); Hemoglobin 11.3 g/dL (12.0-15.0); Mean Corpuscular HGB Conc 32.6 g/dl (32-36); Mean Corpuscular Hemoglobin 30.6 pg (26-34); Mean Platelet Volume 10.1 fl (7.4-10.4); Platelet Count Result 341 k/mm3 (150-375); Red Blood Count 3.69 M/mm3 (4.2-5.4); Red Cell Distribution Width 12.9 % (11.5-14.5); White Blood Count 12.2 K/mm3 (4.5-10.0)
[2024-04-13 06:19] LABS: Alanine Aminotransferase 29 U/L (6-35); Albumin Level 3.1 g/dL (3.5-5.1); Alkaline Phosphatase 40 U/L (38-126); Anion Gap 7 mmol/L (4-12); Aspartate Amino Transferase 16 U/L (14-36); Bilirubin,Total 0.9 mg/dL (0.2-1.3); Blood Urea Nitrogen 16 mg/dL (7-17); Calcium 8.3 mg/dL (8.4-10.2); Carbon Dioxide 29 mmol/L (22-30); Chloride 104 mmol/L (98-107); Estimated CRCL calculation 134 ml/min; Estimated Glomerular Filt Rate > 60; Glucose 122 mg/dL (65-110); Potassium 3.6 mmol/L (3.4-5.0); Sodium 140 mmol/L (137-145)
[2024-04-13 08:43] LABS: Glucose Point of Care 230 mg/dl (65-105)
[2024-04-13 08:52] LABS: Glucose Point of Care 125 mg/dl (65-105)
[2024-04-13] MEDS: ENOXAPARIN 40 MG/0.4 ML SYRINGE SUB-Q (09:01)
[2024-04-13] MEDS: predniSONE 20 MG TABLET 40 MG PO (09:02)
[2024-04-13] MEDS: ATORVASTATIN 40 MG TABLET PO (09:02)
[2024-04-13] MEDS: lisinopriL 20 MG TABLET 40 MG PO (09:02)
--- NOTE | 2024-04-13 09:57 | PCRCNOTE ---
Window of time for administration has passed. See next scheduled administration.
[2024-04-13] MEDS: LINEZOLID 600 MG TABLET PO (12:12)
[2024-04-13 12:27] LABS: Glucose Point of Care 265 mg/dl (65-105)
--- NOTE | 2024-04-13 13:00 | P.DS_ITS ---
DS: Admitting Diagnosis Discharge Date 04/13/24 Admitting Diagnosis Cough and body aches DS: Discharge Diagnosis Discharge Diagnosis (1) Influenza: Code(s): J11.1 - Influenza due to unidentified influenza virus with other respiratory manifestations Status: Acute (2) Sepsis: Qualifiers: Sepsis type: sepsis due to unspecified organism Sepsis acute organ dysfunction status: with acute organ dysfunction Severe sepsis acute organ dysfunction type: acute respiratory failure Acute respiratory failure type: with hypoxia Severe sepsis shock status: without septic shock Qualified Code(s): A41.9 - Sepsis, unspecified organism; R65.20 - Severe sepsis without septic shock; J96.01 - Acute respiratory failure with hypoxia Code(s): A41.9 - Sepsis, unspecified organism Status: Acute (3) Bacteremia: Code(s): R78.81 - Bacteremia Status: Acute (4) Pneumonia: Qualifiers: Pneumonia type: due to influenza A virus Qualified Code(s): J10.00 - Influenza due to other identified influenza virus with unspecified type of pneumonia Code(s): J18.9 - Pneumonia, unspecified organism Status: Acute (5) Respiratory failure: Qualifiers: Chronicity: acute Respiratory failure complication: hypoxia Qualified Code(s): J96.01 - Acute respiratory failure with hypoxia Code(s): J96.90 - Respiratory failure, unspecified, unspecified whether with hypoxia or hypercapnia Status: Acute DS: Summary Hospital Course Hospital Course: 49-year-old female with a past medical history of chronic tobacco use who presented to the ER from home due to cough congestion and body aches for 6 days. The patient reports she has been having generalized body aches, fevers, chills and shortness of breath about 6 days ago. She tried taking some Tylenol daytime formula cold relief without relief in symptoms. Her daughter and granddaughter live with her have been ill with similar symptoms. The patient reports that she does intermittently wheeze whenever she is sick or changes in weather. She has been wheezing significantly more over the last couple of days. She reported that she developed acute tightness throughout her chest today and decided she needed to come to the ER. She denies a known history of COPD but has not seen a doctor in many years. On arrival to the ER the patient was hypoxic on room air at 83%. She was also febrile with a T-max of 102.7?. Her influenza PCR came back positive. Her potassium was mildly low at 3.3. She received Tamiflu, Toradol albuterol, Tylenol and 2 L of fluid bolus in the ER. She was noted to be wheezing as well and was started on Solu-Medrol. The patient reports that she stopped smoking 6 days ago due to her symptoms. Prior to that she was smoking 2 packs per day since she was a teenager. She reported having 2-3 loose stools a day for the last couple of days but her stools have been brown. She does have a history of stress urinary incontinence with coughing. She denies any dysuria or increased urinary frequency. She has had decreased appetite. Patient reports that she was diagnosed with diabetes during an ER visit for years ago. She has never taken any diabetic medications. She does report diabetic neuropathy. patient was managed for pneumonia initially on Rocephin and Azithromycin, however with worsening resp failure and leukocytosis, she was switched to Cefepime and Vanc. Blood culture came back positive for MRSA. EMORY was negative and patient today discharge to complete total of 14 days of with Linezolid. Repeat culture came back negative COPD exacerbation, she was wheezing severe and also smokes. placed on IV steroids and bronchodilators, discharged on tapering prednisone. She was initially on supplemental oxygen, and successfully weaned to room air. Also completed tamiflu for Flu A. counseled abotu smoking cessation managed diabetes with lantus and SSI with accucheks, discharged on lantus 20u and Metformin Ordered Glucometer, strips and lancets for blood sugar and recording keep for when patient goes to see her PCP. F/u [facility] PCP in 3-5 days Time Spent with Patient Time attestation: Total time spent providing and/or coordinating discharge services: DS: Data Data Completed and Pending Labs on day of discharge: Labs from last 24 hours 04/13/24 04/13/24 04/13/24 12:22 08:44 05:55 WBC 12.2 H RBC 3.69 L Hgb 11.3 L Hct 34.7 L MCV 94.0 MCH 30.6 MCHC 32.6 RDW 12.9 Plt Count 341 MPV 10.1 Sodium 140 Potassium 3.6 Chloride 104 Carbon Dioxide 29 Anion Gap 7 BUN 16 Creatinine 0.37 L Estim Creat Clear Calc 134 Estimated GFR > 60 Glucose 122 H POC Capillary Glucose 265 H 125 H Calcium 8.3 L Total Bilirubin 0.9 AST 16 ALT 29 Alkaline Phosphatase 40 Total Protein 6.0 L Albumin 3.1 L 04/12/24 04/12/24 20:01 16:54 WBC RBC Hgb Hct MCV MCH MCHC RDW Plt Count MPV Sodium Potassium Chloride Carbon Dioxide Anion Gap BUN Creatinine Estim Creat Clear Calc Estimated GFR Glucose POC Capillary Glucose 230 H 241 H Calcium Total Bilirubin AST ALT Alkaline Phosphatase Total Protein Albumin Preliminary micro results at discharge 04/11/24 09:50 Blood Culture - Preliminary Blood 04/11/24 09:36 Blood Culture - Preliminary Blood Discharge Plan Discharge Attending physician on discharge: Jaky Vyas Consulting providers: Gordon Miranda; Torsten Kruger Discharging Clinician: Jaky Vyas Anticipated Discharge Date/Time: 04/13/24 12:49 Patient Disposition: Home, Self-Care Activity: as tolerated Diet: regular Patient Instructions: Antibiotic Form Patient Language: German Stand Alone Forms: General Discharge Information Follow-up/Referrals: PHYSICIAN,COMMERCIAL LOAN REVIEWER [Primary Care Provider] - (Follow-up in 3-5 days) Torsten Kruger MD [Physician] - (Follow-up with cardiology as instructed.) Discharge Medications: New (DME) blood-glucose meter [OneTouch Verio Flex meter] [facility] [place] Qty: 1 0RF Rx Instructions: May substitute to in-stock meter and/or covered by insurance. Use As Directed (DME) OneTouch Verio test strips Strip Qty: 1 0RF Rx Instructions: May substitute to in-stock and/or covered by insurance strips. Use As Directed (DME) lancets [OneTouch Delica Plus Lancet] 30 gauge [facility] [place] Qty: 1 0RF Rx Instructions: May substitute to in-stock and/or covered by insurance lancets. Use As Directed atorvastatin 40 mg Tablet 40 mg PO DAILY 30 Days Qty: 30 1RF lisinopril 20 mg Tablet 40 mg PO QAM 30 Days Qty: 60 1RF fluticasone propion-salmeterol [Advair HFA] 45-21 mcg/actuation Hfa Aerosol Inhaler 2 puff inhalation Q12HRT 30 Days Qty: 1 3RF linezolid 600 mg Tablet 600 mg PO Q12HR 7 Days Qty: 14 0RF Combivent Respimat 20-100 mcg/actuation mist 1 puff inhalation QID Qty: 4 0RF Rx Instructions: space evenly during waking hours prednisone 10 mg tablet 10 mg PO DIRECTED Qty: 20 0RF Rx Instructions: see taper instructions insulin glargine [Lantus Solostar U-100 Insulin] 100 unit/mL (3 mL) insulin pen 20 unit subcut QPM Qty: 3 2RF metformin 500 mg tablet 500 mg PO BID Qty: 60 1RF Date of admission: 03/31/24 22:21 Primary Care Provider: PHYSICIAN,COMMERCIAL LOAN REVIEWER Admitting Provider: Veronica Longo Attending physician on admission: Veronica Longo Condition: Stable
[2024-04-13] MEDS: INSULIN ASPART (*BKC) 100 UNITS/ML SUB-Q (13:31)
[2024-04-13] MEDS: NEOMYCIN/POLYMYXIN/BACITRACIN OINTMENT PACKET 1 PACKET (13:32)
[2024-04-13 14:00] VITALS: BP 144/76; PULSE 84; RESP 18; TEMP 36.2; O2SAT 94
== END 2024-04-13 15:50 | disposition home or self-care (01) | DRG 720 ==
LOC: ANHED 21:37 → ANH3MEDSUR 23:33 → ANH3MED 23:47
PROVIDERS: Emergency Medicine; General Practice; Internal Medicine; Admitting Provider Internal Medicine; Emergency Provider Emergency Medicine; Visit Provider Internal Medicine
PROC: B24BZZ4 Ultrasonography of Heart with Aorta, Transesophageal (ICD-10-PCS; CPT 93312; principal; 2024-04-08 15:30)
DX: A41.02 Sepsis due to Methicillin resistant Staphylococcus aureus (principal); J96.01 Acute respiratory failure with hypoxia; J10.08 Influenza due to other identified influenza virus with other specified pneumonia; J15.212 Pneumonia due to Methicillin resistant Staphylococcus aureus; J44.1 Chronic obstructive pulmonary disease with (acute) exacerbation; J44.0 Chronic obstructive pulmonary disease with (acute) lower respiratory infection; R65.20 Severe sepsis without septic shock; E87.6 Hypokalemia; E11.9 Type 2 diabetes mellitus without complications; Z20.822 Contact with and (suspected) exposure to COVID-19; Z87.891 Personal history of nicotine dependence
CPT/HCPCS: 36415; 36569; 71045; 71250; 71260; 80048; 80053; 80061; 80202; 81003; 82565; 82948; 83036; 83605; 83735; 85025; 85027; 85610; 85730; 87040; 87070; 87181; 87205; 87637; 87641; 93005; 93312; 93320; 93325; 94640; 96361; 96374; 99285; A9270; C1751; C8929; J0456; J0692; J0696; J1650; J1815; J1885; J1956; J2003; J2270; J2919; J3370; J3480; J7030; J7040; J7512; Q9957; Q9967